=== PATIENT | female | born 1940 | race Caucasian/White ===

== ENCOUNTER 2019-12-07 13:41 | Inpatient (IN) | payer MEDICARE, SELFPAY ==
[2019-12-07] VITALS (13 sets, daily range): BP systolic 124–172; BP diastolic 68–102; PULSE 96–129; RESP 16–26; TEMP 36.1–37.6; O2SAT 91–96; BMI 31.3; BMI 31.6
--- NOTE | ~2019-12-07 | CT_ITS ---
EXAMINATION: CT brain wo con DATE: 12/07/2019 14:35 INDICATION: Head injury. TECHNIQUE: Computed tomography (CT) of the head was performed without intravenous contrast. The mA wa s adjusted according to patient size. Iterative reconstruction technique was employed. The dose-lengt h product was 605.33 mGy-cm. COMPARISON: Head CT 08/31/2018 FINDINGS: There are scattered areas of low attenuation in the cerebral white matter. There is no intr acranial hemorrhage, acute infarction, or abnormal intracranial mass lesion. The ventricles are lila l in size. There is mild mucosal thickening in the ethmoid sinuses. There are likely changes of ocula r lens replacement surgeries. The mastoid air cells are normal. IMPRESSION: 1. Unchanged extensive nonspecific cerebral white matter disease, which likely represents chronic sma ll vessel ischemic disease. Reviewed, dictated and finalized at location A. KEEPER SUPERVISOR IMPRESSION: 1. Unchanged extensive nonspecific cerebral white matter disease, which likely represents chronic small vessel ischemic disease.
--- NOTE | ~2019-12-07 | CT_ITS ---
EXAMINATION: CT cervical spine wo con DATE: 12/07/2019 14:35 INDICATION: Neck injury. TECHNIQUE: Computed tomography (CT) of the cervical spine was performed without intravenous contrast. Automated exposure control and iterative reconstruction technique were employed. The dose-length pro duct was 432.82 mGy-cm. COMPARISON: None FINDINGS: There is 4 degrees dextrocurvature of cervical spine. Vertebral body heights are normal. Th ere is mildly decreased disc height at C4-C5 and C6-C7 and moderately decreased disc height at C5-C6. The following disc levels are specifically discussed: C2-C3: There is no uncovertebral joint osteoarthritis. There is mild bilateral facet joint osteoarthr itis. There is no neural foraminal stenosis. There is no central canal stenosis. C3-C4: There is mild left uncovertebral joint osteoarthritis. There is mild right and moderate left f acet joint osteoarthritis. There is no neural foraminal stenosis. There is mild central canal stenosi s. C4-C5: There is mild bilateral uncovertebral joint osteoarthritis. There is moderate and severe left facet joint osteoarthritis. There is mild left neural foraminal stenosis. There is mild central canal stenosis. C5-C6: There is severe bilateral uncovertebral joint osteoarthritis. There is no facet joint osteoart hritis. There is moderate bilateral neural foraminal stenosis. There is mild central canal stenosis. C6-C7: There is severe bilateral uncovertebral joint osteoarthritis. There is mild bilateral facet dat int osteoarthritis. There is mild bilateral neural foraminal stenosis. There is mild central canal st enosis. C7-T1: There is no uncovertebral joint osteoarthritis. There is mild bilateral facet joint osteoarthr itis. There is no neural foraminal stenosis. There is no central canal stenosis. IMPRESSION: 1. No fracture. 2. Moderate cervical spondylosis. Reviewed, dictated and finalized at location A. H SHRINKING MACHINE OPERATOR
--- NOTE | ~2019-12-07 | XR_ITS ---
EXAMINATION: [id number] EXAM DATE: 12/13/2019 21:33 INDICATION: Right-sided chest pain after fall 4 days ago. Anterior lower aspect. TECHNIQUE: Frontal projection of the upper right ribs, frontal projection of the lower right ribs, ob lique projection of the right ribs, frontal chest x-ray(s) for interpretation. Comparison is made to prior examination from 03/06/2018. FINDINGS: There are no displaced acute right rib fractures identified. There is no soft tissue abno rmality seen. Left-sided portacatheter. Small amount of linear left basilar opacity probably atelecta sis. The lungs are otherwise clear. There are no pleural effusions. The cardiomediastinal silhouett e is within normal limits. There is no pneumothorax suspected. There are cholecystectomy clips. Consider educating patient that even if there is a radiographically occult nondisplaced rib fracture, there is no specific treatment other than to refrain from activity that prevents healing. IMPRESSION: No displaced right rib fractures. Reviewed, dictated and finalized at location A. AND CREDIT MANAGER
--- NOTE | ~2019-12-07 | XR_ITS ---
XR shoulder RT min 2V, XR shoulder LT min 2V 12/07/2019 14:57 Indication: Status post fall. Bilateral shoulder pain Procedure: 4 views each shoulder Comparison: No prior studies for comparison. Findings: Generalized osteopenia. There are degenerative changes of the glenohumeral joints bilateral ly. No acute fracture or traumatic malalignment. Surrounding osseous structures unremarkable. There i s a left subclavian port, distal tip likely in the SVC. Impression: 1: No acute fracture. Reviewed, dictated and finalized at location B. EL CARRIER Impression: 1: No acute fracture. Impression: 1: No acute fracture.
--- NOTE | 2019-12-07 13:57 | ED.FALL ---
HPI - Fall General Chief Complaint: Fall Stated Complaint: fall Time Seen by Provider: 12/07/19 13:47 Source: patient, EMS and RN notes reviewed Mode of arrival: EMS Limitations: other (poor historian) History of Present Illness HPI Narrative: A 78 y/o female pt presents to the ED, via EMS, from home, with a C/O unwitnessed fall. Pt states she fell out of bed however, she previously told RN that she fell while getting into bed. Per EMS, pt complained of neck pain upon arrival and pt was placed in a C-collar. Pt states she lives at home alone and laid on the floor for an unknown amount of time after her fall. Pt denies LOC. Pt is now complaining of throat pain and lt shoulder pain in the ED. She reports a H/O frequent falls. A complete HPI is not available d/t pt being a poor historian. MD complaint: fall Onset (ago): unknown Fall from: out of bed Fall witnessed: no Place fall occurred: home Loss of consciousness: none Prolonged down time: unclear Context: tripped/slipped and history of frequent falls Location of injury - extremities: Left: shoulder Associated symptoms (after fall): neck pain (reported to EMS but not to EDP) Related Data Home Medications Medication Instructions Recorded Confirmed aspirin 81 mg PO DAILY 09/07/19 09/07/19 calcium carbonate [Calcium 500] 500 mg PO TID 09/07/19 09/07/19 capecitabine 500 mg PO DIRECTED 09/07/19 09/07/19 hydrocodone-acetaminophen 1 tablet PO Q4H PRN 09/07/19 09/07/19 metoprolol tartrate 25 mg PO BID 09/07/19 09/07/19 metronidazole 500 mg PO Q6H 09/07/19 09/07/19 mirtazapine 15 mg PO HS 09/07/19 09/07/19 pantoprazole 40 mg PO Q12H 09/07/19 09/07/19 esomeprazole magnesium mg 12/07/19 Allergies Allergy/AdvReac Type Severity Reaction Status Date / Time No Known Allergies Allergy Unverified 12/07/19 16:35 Review of Systems Review of Systems: All systems reviewed & are unremarkable except as noted in HPI and below Constitutional: Constitutional: Reports frequent falls ENT: Reports sore throat Musculoskeletal: Musculoskeletal: Reports neck pain (reported to EMS but not to EDP) and Reports other (lt shoulder pain) [facility], [facility] Past Medical History Medical History (Updated 12/07/19 @ 17:11 by Laci Massey MD) Colon cancer metastasized to liver Depression Hypertension Kidney stones Myocardial infarction Restless leg syndrome Surgical History Surgical History (Updated 12/07/19 @ 14:26 by Buck Mason) H/O bilateral cataract extraction History of appendectomy History of cholecystectomy History of colon resection History of lithotripsy History of tonsillectomy Social History Social History (Updated 12/07/19 @ 14:26 by Buck Mason) Smoking status: Former smoker Smoking end date: 11/21/07 Alcohol intake: never Exam Const: General: healthy appearing Nutritional Appearance: obese Limitations: other limitations (poor historian ) Other: Elderly HENMT: Mouth: Yes lip normal and Yes dry mucous membranes Eyes: Conjunctivae: conjunctivae normal Pupils: Equal, round and reactive pupils present Resp: Effort & Inspection: normal respiratory effort Auscultation: clear to auscultation bilaterally Cardio: Rate: regular rate Rhythm: regular rhythm and other (frequent ectopy) Heart sounds: no murmurs Peripheral pulses: dorsalis pedis present GI: GI Palp: Yes Soft to palpation and No Tenderness to palpation present (GI) Auscultation: normal bowel sounds Back/Spine/Pelvis: Other: Full ROM Skin: General skin exam: normal color and dry skin Other: Warm Neuro: General: oriented to person (alert) Speech: normal speech Extrem: Left upper extremity: shoulder/upper arm tenderness Right lower extremity: lower leg Details: abrasion (scattered with varying degrees of healing) and ecchymosis (scattered with varying degrees of healing) Left lower extremity: lower leg Details: abrasion (scattered with varying degrees of healing) and ecc
[2019-12-07 14:30] LABS: Basophils Percent Auto 0.2 % (0.2-1.2); Hematocrit 47.9 % (37.0-47.0); Hemoglobin 15.2 g/dL (12.0-15.0); Immature Granulocyte Absolute 0.13 K/mm3 (0.00-0.031); Immature Granulocyte Percent A 0.7 % (0-0.5); Lymphocytes Absolute Auto 0.47 K/mm3 (0.9-3.2); Lymphocytes Percent Auto 2.5 % (18.3-44.2); Mean Corpuscular HGB Conc 31.7 g/dl (32-36); Mean Corpuscular Hemoglobin 32.6 pg (26-34); Mean Corpuscular Volume 102.8 fl (80-100); Mean Platelet Volume 10.5 fl (7.4-10.4); Monocytes Absolute Auto 1.3 K/mm3 (0.1-0.6); Monocytes Percent Auto 6.9 % (2.6-8.5); Neutrophils Absolute Auto 16.7 K/mm3 (1.3-6.7); Neutrophils Percent Auto 89.7 % (45.5-73.1); Platelet Count Result 218 k/mm3 (150-375); Red Blood Count 4.66 M/mm3 (4.2-5.4); Red Cell Distribution Width 15.9 % (11.5-14.5); White Blood Count 18.6 K/mm3 (4.5-10.0)
[2019-12-07 14:40] LABS: Prothrombin Time 13.2 Seconds (11.1-14.7)
[2019-12-07 14:41] LABS: Partial Thromboplastin Time 25.8 SECONDS (22.3-36.8)
[2019-12-07 14:42] LABS: Alanine Aminotransferase 26 U/L (4-35); Albumin Level 4.5 g/dL (3.5-5.1); Alkaline Phosphatase 259 U/L (38-126); Aspartate Amino Transferase 46 U/L (14-36); Blood Urea Nitrogen 13 mg/dL (7-17); Calcium 9.4 mg/dL (8.4-10.2); Carbon Dioxide 30 mmol/L (22-30); Chloride 96 mmol/L (98-107); Estimated CRCL calculation 73 ml/min; Estimated Glomerular Filt Rate > 60; Glucose 137 mg/dL (65-105); Sodium 136 mmol/L (137-145)
[2019-12-07] MEDS: SODIUM CHLORIDE 0.9% IV 1,000 ML 999 ML IV CONT ×2 (15:45→16:45)
[2019-12-07 15:55] LABS: Add Urine Microscopic? YES; Appearance Urine Cloudy (Clear); Bacteria Urine 3+ /hpf; Bilirubin Urine Negative (Negative); Blood Urine 2+ (Negative); Color Urine Amber (Yellow); Glucose Urine UA Negative (Negative); Ketones Urine 1+ mg/dL (Negative); Leukocyte Esterase Ur 1+ LEU/UL (Negative); Mucus Urine Moderate /lpf; Nitrate Urine Negative (Negative); Protein Urine 3+ mg/dL (Negative); RBC Urine 21-50 /hpf (0-2); Specific Grav Ur 1.016 (1.001-1.035); Squamous Epithelial Cell Urine Many /hpf (Few); WBC Urine 51-75 /hpf
[2019-12-07 15:59] LABS: Lactic Acid Reflex 1.4 mmol/L (0.7-2.1)
[2019-12-07] MEDS: METOPROLOL TARTRATE 50 MG TAB 25 MG PO (16:45)
[2019-12-07] MEDS: METOPROLOL TARTRATE INJ 5 MG/5 ML VIAL 2.5 MG IV PUSH (18:05)
[2019-12-07 18:40] LABS: Glucose Point of Care 119 (65-105)
--- NOTE | 2019-12-07 19:01 | ADMGEN ---
This patient, Beau Serrano, was admitted to IMU Room 202-01. Patient/family oriented to hospital policies and general routines including ID bracelet, bed and alarms, visiting hours, pain management, procedures, bathroom and other care routines, personal items, smoking policy, room service/diet, and visiting hours. Valuables list has been completed. Information on how to activate the Rapid Response Team has been discussed. Patient/Family are encouraged to report perceived risks to care and to ask questions if they do not understand what they are told or what they should do.
[2019-12-07 20:42] LABS: Glucose Point of Care 136 (65-105)
[2019-12-08] VITALS (10 sets, daily range): BP systolic 122–147; BP diastolic 69–90; PULSE 64–125; RESP 16–22; TEMP 36.6–37.6; O2SAT 91–94
--- NOTE | 2019-12-08 00:02 | PM.IMHP ---
H&P: HPI History of Present Illness Chief complaint: sepsis Narrative: Beau Serrano is a 78 year old female who came to the emergency room the a.m. as from home she had a complaint of a witnessed fall. The patient stated she fell out of bed but then later to the nurse in the emergency room that she fell trying to get into the bed. The patient complained of neck pain upon arrival the patient was placed in a C-collar. To lives at home alone and laid on the floor to unknown time after the fall patient has a history of frequent falls. The patient is a very poor historian at this time it is difficult to get clear answers from the patient at this time. Patient was started on IV fluids and ceftriaxone for a UTI. She was also given Lopressor IV for rapid heart rate over which the ER physician called AFib with RVR. Patient has no past history of having atrial fibrillation the EKG that was recorded in the records was sinus tachycardia and is and sinus rhythm with frequent PACs at this time. Date of service is 12/07/2019. Shoulder x-rays were taken and no broken bones were noted. Head and cervical CT were obtained please see results below. Nothing acute Review of Systems Review of Systems: Narrative: Patient is a very poor historian see history of present All systems reviewed & are unremarkable except as noted in HPI and below Constitutional: Constitutional: Reports as per HPI and Reports no additional constitutional complaints Eyes: Eyes: Reports as per HPI and Reports no additional eye complaints ENT: Reports system reviewed and no additional complaints, except as documented and Reports Normal hearing present Cardiovascular: Cardiovascular: Reports no additional cardiovascular complaints Respiratory: Respiratory: Reports no additional respiratory complaints and Reports no additional respiratory complaints Gastrointestinal: Gastrointestinal: Reports as per HPI and Reports no additional gastrointestinal complaints Musculoskeletal: Musculoskeletal: Reports no additional musculoskeletal complaints Comments: She complained of head neck back pain Integumentary/Breasts: Skin/Breast: Reports system reviewed and no additional complaints, except as docu and Reports as per HPI Neurologic: Reports system reviewed and no additional complaints, except as documented, Reports as per HPI and Reports Normal hearing present Psychiatric: Psychiatric: Reports no additional psychiatric complaints and Reports as per HPI Endocrine: Endocrine: Reports no additional endocrine complaints Hematologic/Lymphatic: Hematologic/Lymphatic: Reports no additional hematologic/lymphatic complaints Allergic/Immunologic: Allergic/Immunologic: Reports no additional allergic/immunologic complaints [facility] Past Medical History Medical History Colon cancer metastasized to liver Depression Hypertension Kidney stones Myocardial infarction Restless leg syndrome Surgical History Surgical History H/O bilateral cataract extraction History of appendectomy History of cholecystectomy History of colon resection History of lithotripsy History of tonsillectomy Family History Family History Father Lung cancer Sibling Cancer Social History Social History (Updated 12/08/19 @ 00:08 by Hazel Cortez NP) Social History: According to the records the patient lives home alone and she has 1 daughter. She is listed as a full code. Smoking packs per day: 2 Smoking cigarettes per day: 40.0 Years smoked: 20 Smoking pack-years: 40.00 Smoking status: Heavy tobacco smoker Tobacco type: cigarettes Smoking end date: 11/21/07 Alcohol intake: former Substance use: never Substance use type: does not use Living arrangements: alone Gender identity (if verbalized by the patient): Female Spiritual
--- NOTE | 2019-12-08 01:33 | PHAR ---
PT'S HOME MED CAPECITABINE 500 MG VERIFIED BY PHARMACY
[2019-12-08 05:09] LABS: Basophils Percent Auto 0.2 % (0.2-1.2); Hematocrit 39.2 % (37.0-47.0); Hemoglobin 12.9 g/dL (12.0-15.0); Immature Granulocyte Percent A 0.6 % (0-0.5); Lymphocytes Absolute Auto 0.81 K/mm3 (0.9-3.2); Lymphocytes Percent Auto 4.9 % (18.3-44.2); Mean Corpuscular HGB Conc 32.9 g/dl (32-36); Mean Corpuscular Hemoglobin 33.1 pg (26-34); Mean Corpuscular Volume 100.5 fl (80-100); Monocytes Absolute Auto 1.3 K/mm3 (0.1-0.6); Monocytes Percent Auto 7.7 % (2.6-8.5); Neutrophils Absolute Auto 14.4 K/mm3 (1.3-6.7); Neutrophils Percent Auto 86.6 % (45.5-73.1); Platelet Count Result 181 k/mm3 (150-375); Red Cell Distribution Width 15.9 % (11.5-14.5); White Blood Count 16.7 K/mm3 (4.5-10.0)
[2019-12-08 05:21] LABS: Alanine Aminotransferase 24 U/L (4-35); Albumin Level 3.6 g/dL (3.5-5.1); Alkaline Phosphatase 206 U/L (38-126); Aspartate Amino Transferase 40 U/L (14-36); Bilirubin,Total 0.6 mg/dL (0.2-1.3); Blood Urea Nitrogen 15 mg/dL (7-17); Calcium 8.6 mg/dL (8.4-10.2); Carbon Dioxide 24 mmol/L (22-30); Chloride 100 mmol/L (98-107); Estimated CRCL calculation 72 ml/min; Estimated Glomerular Filt Rate > 60; Glucose 102 mg/dL (65-105); Magnesium 1.9 mg/dL (1.6-2.3); Potassium 3.3 mmol/L (3.4-5.0); Sodium 135 mmol/L (137-145)
[2019-12-08 05:28] LABS: Hypochromasia 1+ (NORMAL); Platelet Estimate Adequate (Adequate)
[2019-12-08 05:29] LABS: Macrocytosis 1+ (NORMAL); Microcytosis 1+ (NORMAL)
[2019-12-08 06:42] LABS: Thyroid Stimulating Hormone Reflex 0.561 uIU/mL (0.465-4.68)
[2019-12-08] MEDS: PANTOPRAZOLE 40 MG TABLET PO (08:42)
[2019-12-08] MEDS: POTASSIUM CHLORIDE 20 MEQ TABLET 40 MEQ PO (08:42)
--- NOTE | 2019-12-08 10:03 | PM.IMPN ---
Progress Note: A&P Assessment and Plan (1) Sepsis: Qualifiers: Sepsis acute organ dysfunction status: without acute organ dysfunction Sepsis type: sepsis due to unspecified organism Qualified Code(s): A41.9 - Sepsis, unspecified organism Code(s): A41.9 - Sepsis, unspecified organism Status: Acute Assessment and Plan: Criteria met on admission. Result of UTI. Blood cultures x2 now growing gram-positive bacilli. Was started on IV ceftriaxone in the emergency room but will add IV vancomycin while awaiting final test results. WBC improved at 16.7 today. Lactic acid normal. Will add low-dose IV fluids which can hopefully be discontinued as oral intake improves. Will moved to medical floor as stable. (2) UTI (urinary tract infection): Qualifiers: Urinary tract infection type: acute cystitis Hematuria presence: without hematuria Qualified Code(s): N30.00 - Acute cystitis without hematuria Code(s): N39.0 - Urinary tract infection, site not specified Status: Acute Assessment and Plan: Urinalysis on admission very suspicious but with many squamous epithelial cells. Urine culture is still pending. IV antibiotics as noted above with blood cultures positive. (3) Sinus tachycardia: Code(s): R00.0 - Tachycardia, unspecified Status: Acute Assessment and Plan: Concern for possible atrial fibrillation while in the emergency room. I personally reviewed EKG which does show sinus tachycardia. Telemetry reviewed on 12/08/2019 also with sinus tachycardia with frequent PACs. Result of infection. Will monitor clinically. (4) Hypertension: Qualifiers: Hypertension type: essential hypertension Qualified Code(s): I10 - Essential (primary) hypertension Code(s): I10 - Essential (primary) hypertension Status: Chronic Assessment and Plan: Blood pressure was slightly elevated on admission. Blood pressure reviewed on 12/08/2019 and currently acceptable. Not on medication at home. Will monitor. (5) Depression: Qualifiers: Depression Type: major depressive disorder Major depression recurrence: unspecified whether recurrent Active/Remission status: currently active Major depression episode severity: unspecified Qualified Code(s): F32.9 - Major depressive disorder, single episode, unspecified Code(s): F32.9 - Major depressive disorder, single episode, unspecified Status: Chronic Assessment and Plan: Patient does appear depressed. Not on medication at home. Will monitor for now. (6) Malignant neoplasm of colon, unspecified: Qualifiers: Colon location: unspecified part of colon Qualified Code(s): C18.9 - Malignant neoplasm of colon, unspecified Code(s): C18.9 - Malignant neoplasm of colon, unspecified Status: Acute Assessment and Plan: Known metastatic colon cancer originally diagnosed in October 2016. Underwent right hemicolectomy in November 2016. Eventually had Port-A-Cath placed in January 2018 for chemotherapy. She is followed by Dr. Crawford and is currently on oral capecitabine which we will continue while here. (7) DVT prophylaxis: Code(s): Z29.9 - Encounter for prophylactic measures, unspecified Status: Acute Assessment and Plan: SCDs. Time Spent With Patient Time with patient: 15 - 25 minutes Subjective Date/time seen: 12/08/19 10:03 Interval history: Date of Service: 12/08/2019. Admitted with sepsis, UTI and possible atrial fibrillation. Patient with known colon cancer currently receiving treatment. Complains of general malaise. Also complains of chest pain, abdominal pain, breast pain, headache, shoulder pain. Does not recall when she last urinated but nurse reports has been incontinent. States she has not eaten for at least 1-2 days. No nausea or vomiting. No shortness of breath. Review of Systems Constitutional: Constitutional: Repor
[2019-12-08] MEDS: SODIUM CHLORIDE 0.9% IV 1,000 ML 50 ML IV CONT (11:10)
--- NOTE | 2019-12-08 11:45 | PC.NURSE ---
This patient, Beau Serrano, was transferred to [325 ] on 12/08/19 at 1140. Personal belongings sent with patient. Belongings list checked and HOME Med sent with patients Chart. Report given to Jany CONCEPCION. Appropriate documentation sent with patient.
--- NOTE | 2019-12-08 11:59 | PC.NURSE ---
This patient, Beau Serrano, was received from [ IMU] on 12/08/19 at 1200. Personal belongings list checked and signed. Patient/family oriented to unit policies and routines
[2019-12-08] MEDS: ACETAMINOPHEN 325 MG TABLET 650 MG PO (13:34)
[2019-12-09 06:33] LABS: Hematocrit 38.7 % (37.0-47.0); Hemoglobin 12.9 g/dL (12.0-15.0); Mean Corpuscular HGB Conc 33.3 g/dl (32-36); Mean Corpuscular Hemoglobin 33.2 pg (26-34); Mean Corpuscular Volume 99.7 fl (80-100); Platelet Count Result 186 k/mm3 (150-375); Red Blood Count 3.88 M/mm3 (4.2-5.4); Red Cell Distribution Width 15.7 % (11.5-14.5)
[2019-12-09 06:45] LABS: Blood Urea Nitrogen 13 mg/dL (7-17); Calcium 8.5 mg/dL (8.4-10.2); Carbon Dioxide 27 mmol/L (22-30); Chloride 95 mmol/L (98-107); Estimated CRCL calculation 72 ml/min; Estimated Glomerular Filt Rate > 60; Glucose 113 mg/dL (65-105); Magnesium 1.9 mg/dL (1.6-2.3); Potassium 3.4 mmol/L (3.4-5.0); Sodium 130 mmol/L (137-145)
[2019-12-09 06:53] VITALS: BP 160/95; PULSE 123; RESP 18; TEMP 37.3; O2SAT 92
[2019-12-09] MEDS: PANTOPRAZOLE 40 MG TABLET PO (12:02)
--- NOTE | 2019-12-09 12:14 | PCOTNOTE ---
Patient declined ADL's and UE exercises this date due to fatigue and not feeling up to it .
[2019-12-09] MEDS: SODIUM CHLORIDE 0.9% IV 1,000 ML 50 ML IV CONT (13:07)
--- NOTE | 2019-12-09 14:18 | PM.IMPN ---
Progress Note: A&P Assessment and Plan (1) Sepsis: Qualifiers: Sepsis acute organ dysfunction status: without acute organ dysfunction Sepsis type: sepsis due to unspecified organism Qualified Code(s): A41.9 - Sepsis, unspecified organism Code(s): A41.9 - Sepsis, unspecified organism Status: Acute Assessment and Plan: Criteria met on admission. Probably result of UTI but also now with blood cultures times to growing Clostridium perfringens. Suspect this is her known metastatic colon cancer. Urine culture with Klebsiella pneumonia. Will continue IV vancomycin with positive blood cultures and IV ceftriaxone with positive urine culture. Will consult infectious disease for further guidance regarding treatment. WBC down to 14.0 today. Will discontinue low-dose IV fluids today. Continue PT/OT. Discussed need for rehab with patient today. Discussed need for rehab placement with granddaughter yesterday. Care coordination aware with referrals made to SNF facilities. (2) UTI (urinary tract infection): Qualifiers: Hematuria presence: without hematuria Urinary tract infection type: acute cystitis Qualified Code(s): N30.00 - Acute cystitis without hematuria Code(s): N39.0 - Urinary tract infection, site not specified Status: Acute Assessment and Plan: Urinalysis on admission suspicious with urine culture no growing Klebsiella pneumonia. Will continue IV ceftriaxone as sensitive. (3) Sinus tachycardia: Code(s): R00.0 - Tachycardia, unspecified Status: Acute Assessment and Plan: Concern for possible atrial fibrillation while in the emergency room. I personally reviewed EKG which does show sinus tachycardia. Heart rate now presently controlled. Will continue to monitor clinically. (4) Hypertension: Qualifiers: Hypertension type: essential hypertension Qualified Code(s): I10 - Essential (primary) hypertension Code(s): I10 - Essential (primary) hypertension Status: Chronic Assessment and Plan: Blood pressure reviewed on 12/09/2019. Blood pressure variable with elevated readings frequently. Not on medication at home. Will start low-dose metoprolol tartrate. Will monitor. Adjust treatment as needed. (5) Depression: Qualifiers: Active/Remission status: currently active Depression Type: major depressive disorder Major depression episode severity: unspecified Major depression recurrence: unspecified whether recurrent Qualified Code(s): F32.9 - Major depressive disorder, single episode, unspecified Code(s): F32.9 - Major depressive disorder, single episode, unspecified Status: Chronic Assessment and Plan: Patient does appear depressed. Not on medication at home. Will continue to monitor for now. (6) Malignant neoplasm of colon, unspecified: Qualifiers: Colon location: unspecified part of colon Qualified Code(s): C18.9 - Malignant neoplasm of colon, unspecified Code(s): C18.9 - Malignant neoplasm of colon, unspecified Status: Acute Assessment and Plan: Known metastatic colon cancer originally diagnosed in October 2016. Underwent right hemicolectomy in November 2016. Eventually had Port-A-Cath placed in January 2018 for chemotherapy. She is followed by Dr. Crawford and is currently on oral capecitabine which we will continue while here. Will need to follow up with Oncology after discharge. (7) DVT prophylaxis: Code(s): Z29.9 - Encounter for prophylactic measures, unspecified Status: Acute Assessment and Plan: SCDs. Time Spent With Patient Time with patient: 15 - 25 minutes Subjective Date/time seen: 12/09/19 14:18 Interval history: Date of Service: 12/09/2019. Admitted with sepsis, UTI and possible atrial fibrillation. Patient with known colon cancer currently receiving treatment. Sitting in chair today. Complains of abdominal pain. No n
[2019-12-09 14:43] VITALS: BP 126/77; PULSE 77; RESP 16; TEMP 37.3; O2SAT 94
[2019-12-09] MEDS: AMPICILLIN 1 GM/NS 50 ML 1 GM/50 ML BAG IVPB (17:40)
[2019-12-09 20:57] VITALS: PULSE 70
[2019-12-09] MEDS: METOPROLOL TARTRATE 12.5 MG TABLET PO (20:57)
[2019-12-10] MEDS: AMPICILLIN 1 GM/NS 50 ML 1 GM/50 ML BAG IVPB ×3 (00:13→12:45)
[2019-12-10 06:00] VITALS: BP 135/98; PULSE 100; RESP 18; TEMP 36.4; O2SAT 94
[2019-12-10 06:50] LABS: Estimated CRCL calculation 74 ml/min; Estimated Glomerular Filt Rate > 60
[2019-12-10 09:38] VITALS: PULSE 84
[2019-12-10] MEDS: PANTOPRAZOLE 40 MG TABLET PO (09:38)
[2019-12-10] MEDS: METOPROLOL TARTRATE 12.5 MG TABLET PO ×2 (09:38→20:58)
[2019-12-10 14:00] VITALS: BP 108/48; PULSE 64; RESP 16; TEMP 36.8; O2SAT 96
--- NOTE | 2019-12-10 14:32 | PM.IMPN ---
Progress Note: A&P Assessment and Plan (1) Sepsis: Qualifiers: Sepsis acute organ dysfunction status: without acute organ dysfunction Sepsis type: sepsis due to unspecified organism Qualified Code(s): A41.9 - Sepsis, unspecified organism Code(s): A41.9 - Sepsis, unspecified organism Status: Acute Assessment and Plan: Criteria met on admission. Result of UTI and Clostridium perfringens. Urine culture with Klebsiella pneumonia. Blood cultures x2 now positive for Clostridium perfringens. Was on IV ceftriaxone and vancomycin while awaiting ID consult with IV ampicillin added yesterday per ID. Discussed with Dr. Muse today. Now transitioned to ampicillin/sulbactam alone today. Length of treatment to be determined. Will continue PT/OT. Will need SNF placement at discharge. Continue to follow. (2) UTI (urinary tract infection): Qualifiers: Hematuria presence: without hematuria Urinary tract infection type: acute cystitis Qualified Code(s): N30.00 - Acute cystitis without hematuria Code(s): N39.0 - Urinary tract infection, site not specified Status: Acute Assessment and Plan: Urinalysis on admission suspicious with urine culture growing Klebsiella pneumonia. Transitioned to IV ampicillin/sulbactam today as noted above. (3) C. perfringens infection: Code(s): B96.7 - Clostridium perfringens [C. perfringens] as the cause of diseases classified elsewhere Status: Acute Assessment and Plan: Blood cultures x2 positive for Clostridium perfringens. Known metastatic colon cancer with felt to be source of this infection now on IV ampicillin/sulbactam as noted above. (4) Sinus tachycardia: Code(s): R00.0 - Tachycardia, unspecified Status: Acute Assessment and Plan: Concern for possible atrial fibrillation while in the emergency room. I personally reviewed EKG which showed sinus tachycardia. Tachycardia result of infection. Heart rate now remains controlled. Continue to monitor. (5) Hypertension: Qualifiers: Hypertension type: essential hypertension Qualified Code(s): I10 - Essential (primary) hypertension Code(s): I10 - Essential (primary) hypertension Status: Chronic Assessment and Plan: Blood pressure reviewed on 12/10/2019. Blood pressure still with some variability but acceptable. Will continue low-dose metoprolol tartrate. Will continue to monitor. Was not on medication at home. (6) Depression: Qualifiers: Active/Remission status: currently active Depression Type: major depressive disorder Major depression episode severity: unspecified Major depression recurrence: unspecified whether recurrent Qualified Code(s): F32.9 - Major depressive disorder, single episode, unspecified Code(s): F32.9 - Major depressive disorder, single episode, unspecified Status: Chronic Assessment and Plan: Patient does appear depressed. Not on medication at home. Will continue to monitor for now. (7) Malignant neoplasm of colon, unspecified: Qualifiers: Colon location: unspecified part of colon Qualified Code(s): C18.9 - Malignant neoplasm of colon, unspecified Code(s): C18.9 - Malignant neoplasm of colon, unspecified Status: Acute Assessment and Plan: Known metastatic colon cancer originally diagnosed in October 2016. Underwent right hemicolectomy in November 2016. Eventually had Port-A-Cath placed in January 2018 for chemotherapy. She is followed by Dr. Crawford as an outpatient and is currently on oral capecitabine which we will continue while here. Will need to follow up with Oncology after discharge. (8) DVT prophylaxis: Code(s): Z29.9 - Encounter for prophylactic measures, unspecified Status: Acute Assessment and Plan: SCDs. Time Spent With Patient Time with patient: 15 - 25 minutes Subjective Date/time seen: 12/10/19 14:32
[2019-12-10 15:19] LABS: Vancomycin Trough 7.1 ug/mL (10.0-20.0)
--- NOTE | 2019-12-10 15:23 | WPDINFPN2 ---
Progress Note: A&P Assessment and Plan (1) C. perfringens infection: Code(s): B96.7 - Clostridium perfringens [C. perfringens] as the cause of diseases classified elsewhere Status: Acute Assessment and Plan: C. perfringens bacteremia with infection, hepatic source REC AmpSulbactam # 1 and f/u. Subjective Date/time seen: 12/10/19 15:23 Objective Data Vital Signs Vital Signs: Vital Signs - 24 hr 12/09/19 20:57 12/10/19 06:00 12/10/19 09:38 Temperature 36.4 C Pulse Rate 70 100 84 Respiratory Rate 18 Blood Pressure 135/98 H Pulse Oximetry 94 Intake/Output Intake/Output: Intake & Output 12/07/19 12/08/19 12/09/19 12/10/19 23:59 23:59 23:59 23:59 Intake Total 2049 2029 2300 1330 Output Total 496 325 9703 Balance 1650 2030 1500 330 Meds/Results Medications: Active Medications Generic Name Dose Route Start Last Admin Trade Name Freq PRN Reason Stop Dose Admin Acetaminophen 650 mg 12/08/19 12:16 12/08/19 13:34 Tylenol Tablet PO 650 mg Q4H PRN Administration Mild Pain (1-3) or Fever Hydrocodone Bitart/Acetaminophen 1 tab 12/08/19 16:42 12/10/19 06:20 [place] 5-325 Mg PO 1 tab Q4H PRN Administration Pain Rated 4-6 Metoprolol Tartrate 12.5 mg 12/09/19 21:00 12/10/19 09:38 Lopressor PO 12.5 mg Q12HR NI Administration Pantoprazole Sodium 40 mg 12/08/19 09:00 12/10/19 09:38 Protonix PO 40 mg DAILY NI Administration Radiology Results: ITS Impressions Head CT 12/07/19 14:40 IMPRESSION: 1. Unchanged extensive nonspecific cerebral white matter disease, which likely represents chronic small vessel ischemic disease. Cervical Spine CT 12/07/19 14:45 IMPRESSION: 1. No fracture. 2. Moderate cervical spondylosis. Shoulder X-Ray 12/07/19 15:07 Impression: 1: No acute fracture. Shoulder X-Ray 12/07/19 15:07 Impression: 1: No acute fracture. Labs Labs: Laboratory Results - last 24 hr 12/10/19 12/10/19 06:17 14:57 Creatinine 0.60 L Estim Creat Clear Calc 74 Estimated GFR > 60 Vancomycin Trough 7.1 L
[2019-12-10] MEDS: AMPICILLIN SODIUM/SULBACTAM 3 GM in SODIUM CHLORIDE 0.9% IV 100 ML IVPB (18:54)
[2019-12-10 20:58] VITALS: PULSE 100
[2019-12-10 22:00] VITALS: BP 121/89; PULSE 107; RESP 16; TEMP 37.6; O2SAT 94
[2019-12-10] MEDS: MELATONIN 3 MG TABLET PO (22:53)
[2019-12-11] MEDS: AMPICILLIN SODIUM/SULBACTAM 3 GM in SODIUM CHLORIDE 0.9% IV 100 ML IVPB ×4 (01:40→17:02)
[2019-12-11 06:00] VITALS: BP 135/83; PULSE 93; RESP 16; TEMP 37.2; O2SAT 92
--- NOTE | 2019-12-11 06:16 | CONS_ITS ---
DATE OF CONSULTATION: 12/10/2019 REASON FOR CONSULTATION: Clostridium bacteremia. HISTORY OF PRESENT ILLNESS: Ms. Serrano is a 78-year-old female, who can provide limited history due to memory loss. She has a history of colon cancer and known to be metastatic to the liver. She presented to the emergency room 3 days ago after suffering a fall at home. Blood cultures turned positive yesterday and consultation was requested. She has been on ceftriaxone and vancomycin; I added ampicillin yesterday. No other recent antibiotics. No immunosuppressants. She does have abdominal pain at rest in the epigastrium and right upper quadrant, not elsewhere. No diarrhea and to me she denies fever, chills, sweats, or syncope. Chart indicates frequent falls at home. ALLERGIES: NONE KNOWN. HABITS: No tobacco. No alcohol. PRESENT MEDICATIONS: List reviewed. PAST MEDICAL HISTORY: Cholecystectomy, colon resection, appendectomy, cataract surgery, lithotripsy, tonsillectomy, depression, hypertension, nephrolithiasis, [place], RLS. FAMILY HISTORY: Lung cancer. SOCIAL HISTORY: She reports being several months ago. She does not work outside the home and minimally active by her report. REVIEW OF SYSTEM: 14-point review negative otherwise. PHYSICAL EXAMINATION: GENERAL: This is an elderly female appears her actual age. No acute distress. VITAL SIGNS: Afebrile since arrival 3 days ago, 135/98, 100, 18, 94%. SKIN: Few ecchymoses. She has several abraded papular lesions each about 0.5 cm in diameter over both shins. Skin is warm and dry. She has no ulcerations. EENT: The pupils are equal and round. No conjunctival injection. No petechiae. Oral mucosa is normal. NECK: No masses. LUNGS: Diminished breath sounds, otherwise clear to auscultation and percussion. BACK: Has no CVAT. CARDIAC: Tachycardic, regular no murmurs or gallops. No ectopy. ABDOMEN: Tender without guarding in the epigastrium in the right upper quadrant. No masses are palpable. Normal bowel sounds. Not distended, obese. EXTREMITIES: 2+ pitting edema in both ankles and into the feet. LABORATORY DATA: Blood cultures from 2 out 2 sets, Clostridium perfringens susceptibilities pending. Urine culture with Klebsiella pneumoniae. White blood cell count yesterday 14.0, hemoglobin 12.9, platelets are 186, previous a white count 16.7. She has hyponatremia, otherwise chemistry panel unremarkable. AST is 40, alkaline phosphatase 206. Urinalysis multiple abnormalities, which are reviewed. RADIOLOGY: Brain CT shows chronic changes only. Abdomen pelvic CT, heterogeneous mass, left hepatic lobe, stable intrahepatic biliary dilation and ventral hernias. ASSESSMENT: 1. Clostridium perfringens bacteremia, suspected to infection rather than skin contaminant. She has no risk factors for food-borne illness. More likely, I think this is a colon or hepatic in origin in particular from necrotic liver tumor. Imaging does not indicate any reversible stricture or surgically approachable condition. 2. Metastatic colon cancer. 3. Memory loss. 4. Past tobacco. RECOMMENDATIONS: 1. Consolidate to ampicillin-sulbactam. 2. Await susceptibility pattern, about 10% of Clostridium perfringens isolates will be penicillin resistant. 3. Length of IV therapy to be determined. 4. Follow up white blood cell count over time. Thank you very much for asking me to see her. KJ CAZARES M.D. ORACLE DEVELOPER ORACLE DEVELOPER D I MT: [place]
[2019-12-11 06:25] LABS: Hematocrit 37.2 % (37.0-47.0); Hemoglobin 12.2 g/dL (12.0-15.0); Mean Corpuscular HGB Conc 32.8 g/dl (32-36); Mean Corpuscular Volume 100.5 fl (80-100); Mean Platelet Volume 10.8 fl (7.4-10.4); Platelet Count Result 205 k/mm3 (150-375); Red Cell Distribution Width 15.4 % (11.5-14.5); White Blood Count 10.2 K/mm3 (4.5-10.0)
[2019-12-11 06:41] LABS: Blood Urea Nitrogen 13 mg/dL (7-17); Calcium 8.4 mg/dL (8.4-10.2); Carbon Dioxide 28 mmol/L (22-30); Chloride 98 mmol/L (98-107); Estimated CRCL calculation 75 ml/min; Estimated Glomerular Filt Rate > 60; Glucose 119 mg/dL (65-105); Potassium 3.5 mmol/L (3.4-5.0); Sodium 135 mmol/L (137-145)
[2019-12-11 08:05] VITALS: PULSE 106
[2019-12-11] MEDS: METOPROLOL TARTRATE 12.5 MG TABLET PO ×2 (08:05→20:31)
[2019-12-11] MEDS: PANTOPRAZOLE 40 MG TABLET PO (08:06)
--- NOTE | 2019-12-11 11:03 | PM.IMPN ---
Progress Note: A&P Assessment and Plan (1) Sepsis: Qualifiers: Sepsis acute organ dysfunction status: without acute organ dysfunction Sepsis type: sepsis due to unspecified organism Qualified Code(s): A41.9 - Sepsis, unspecified organism Code(s): A41.9 - Sepsis, unspecified organism Status: Acute Assessment and Plan: Septicemia with criteria met on admission. Result of UTI and Clostridium perfringens. Urine culture with Klebsiella pneumonia. Blood cultures x2 positive for Clostridium perfringens. Was on IV ceftriaxone and vancomycin with IV ampicillin added. Now abx narrowed to Unasyn. BCx sensitivities are pending but Beta Lactamase negative. Length of treatment to be determined. Will continue PT/OT. Will need SNF placement at discharge. Continue to follow. (2) UTI (urinary tract infection): Qualifiers: Hematuria presence: without hematuria Urinary tract infection type: acute cystitis Qualified Code(s): N30.00 - Acute cystitis without hematuria Code(s): N39.0 - Urinary tract infection, site not specified Status: Acute Assessment and Plan: Urine culture growing Klebsiella pneumonia. COntinue IV ampicillin/sulbactam. (3) C. perfringens infection: Code(s): B96.7 - Clostridium perfringens [C. perfringens] as the cause of diseases classified elsewhere Status: Acute Assessment and Plan: Blood cultures x2 positive for Clostridium perfringens. Known metastatic colon cancer felt to be the source of this infection. Beta Lactamase negative. Sensitivities pending. Abx adjusted and currently on IV ampicillin/sulbactam as noted above. Continue the same. (4) Sinus tachycardia: Code(s): R00.0 - Tachycardia, unspecified Status: Acute Assessment and Plan: Concern for possible atrial fibrillation while in the emergency room but EKG showing sinus tachycardia. Tachycardia felt a result of infection. Heart rate now remains controlled on Metoprolol. Continue to monitor. (5) Hypertension: Qualifiers: Hypertension type: essential hypertension Qualified Code(s): I10 - Essential (primary) hypertension Code(s): I10 - Essential (primary) hypertension Status: Chronic Assessment and Plan: Blood pressure reviewed on 12/11/2019. Blood pressure well controlled. Low-dose metoprolol tartrate added which will continue. Will continue to monitor. Was not on medication at home. (6) Depression: Qualifiers: Active/Remission status: currently active Depression Type: major depressive disorder Major depression episode severity: unspecified Major depression recurrence: unspecified whether recurrent Qualified Code(s): F32.9 - Major depressive disorder, single episode, unspecified Code(s): F32.9 - Major depressive disorder, single episode, unspecified Status: Chronic Assessment and Plan: Patient with the diagnosis of depression but not on medication at home. Will continue to monitor for now. (7) Malignant neoplasm of colon, unspecified: Qualifiers: Colon location: unspecified part of colon Qualified Code(s): C18.9 - Malignant neoplasm of colon, unspecified Code(s): C18.9 - Malignant neoplasm of colon, unspecified Status: Acute Assessment and Plan: Patient with known metastatic colon cancer originally diagnosed in October 2016. She underwent right hemicolectomy in November 2016 and eventually had Port-A-Cath placed in January 2018 for chemotherapy. She is followed by Dr. Crawford as an outpatient and is currently on oral capecitabine. Will need to follow up with Oncology after discharge. (8) DVT prophylaxis: Code(s): Z29.9 - Encounter for prophylactic measures, unspecified Status: Acute Assessment and Plan: SCDs. Subjective Date/time seen: 12/11/19 09:45 Interval history: 78yo female admitted with sepsis,
[2019-12-11 14:00] VITALS: BP 134/79; PULSE 94; RESP 19; TEMP 36.6; O2SAT 95
[2019-12-11] MEDS: ACETAMINOPHEN 325 MG TABLET 650 MG PO (17:02)
--- NOTE | 2019-12-11 18:05 | WPDINFPN2 ---
Progress Note: A&P Assessment and Plan (1) C. perfringens infection: Code(s): B96.7 - Clostridium perfringens [C. perfringens] as the cause of diseases classified elsewhere Status: Acute Assessment and Plan: 1. C. perfringens bacteremia with infection, hepatic source, beta lactamase negative. 2. Colon cancer with met to liver REC AmpSulbactam # 2, continue this agent rather than PCN due to potential for co-pathogens. Anticipate another 3 days IV therapy, then oral. On analgesics Subjective Date/time seen: 12/11/19 18:05 Interval history: upper abd pain, appetite poor but is trying to finish her tray Exam Narrative: Exam Narrative: afebrile Const: General: no acute distress Eyes: General: appearance normal, both eyes and all related structures Resp: Effort & Inspection: normal respiratory effort Auscultation: clear to auscultation bilaterally Cardio: Rate: regular rate Rhythm: regular rhythm Heart sounds: no gallops and no murmurs GI: Inspection: non-distended GI Palp: Yes Soft to palpation, Yes Tenderness to palpation present (GI) and No Guarding due to palpation present (GI) Percussion: Yes normal to percussion Objective Data Vital Signs Vital Signs: Vital Signs - 24 hr 12/10/19 20:58 12/10/19 22:00 12/11/19 06:00 Temperature 37.6 C 37.2 C Pulse Rate 100 107 H 93 Respiratory Rate 16 16 Blood Pressure 121/89 135/83 Pulse Oximetry 94 92 12/11/19 08:05 Temperature Pulse Rate 106 H Respiratory Rate Blood Pressure Pulse Oximetry Intake/Output Intake/Output: Intake & Output 12/08/19 12/09/19 12/10/19 12/11/19 23:59 23:59 23:59 23:59 Intake Total 2029 2300 2360 2490 Output Total 800 1999 800 Balance 2029 9669 497 1717 Meds/Results Medications: Active Medications Generic Name Dose Route Start Last Admin Trade Name Freq PRN Reason Stop Dose Admin Acetaminophen 650 mg 12/08/19 12:16 12/11/19 17:02 Tylenol Tablet PO 650 mg Q4H PRN Administration Mild Pain (1-3) or Fever Hydrocodone Bitart/Acetaminophen 1 tab 12/08/19 16:42 12/10/19 18:34 [place] 5-325 Mg PO 1 tab Q4H PRN Administration Pain Rated 4-6 Ampicillin Sodium/Sulbactam 100 mls @ 200 mls/hr 12/10/19 18:00 12/11/19 17:02 Sodium 3 gm/ Sodium Chloride IVPB 200 mls/hr Q6HR NI Administration Metoprolol Tartrate 12.5 mg 12/09/19 21:00 12/11/19 08:05 Lopressor PO 12.5 mg Q12HR NI Administration Pantoprazole Sodium 40 mg 12/08/19 09:00 12/11/19 08:06 Protonix PO 40 mg DAILY NI Administration Radiology Results: ITS Impressions Head CT 12/07/19 14:40 IMPRESSION: 1. Unchanged extensive nonspecific cerebral white matter disease, which likely represents chronic small vessel ischemic disease. Cervical Spine CT 12/07/19 14:45 IMPRESSION: 1. No fracture. 2. Moderate cervical spondylosis. Shoulder X-Ray 12/07/19 15:07 Impression: 1: No acute fracture. Shoulder X-Ray 12/07/19 15:07 Impression: 1: No acute fracture. Labs Labs: Laboratory Results - last 24 hr 12/11/19 12/11/19 06:05 06:05 WBC 10.2 H RBC 3.70 L Hgb 12.2 Hct 37.2 MCV 100.5 H MCH 33.0 MCHC 32.8 RDW 15.4 H Plt Count 205 MPV 10.8 H Sodium 135 L Potassium 3.5 Chloride 98 Carbon Dioxide 28 BUN 13 Creatinine 0.60 L Estim Creat Clear Calc 75 Estimated GFR > 60 Glucose 119 H Calcium 8.4
[2019-12-11 20:07] VITALS: PULSE 66; RESP 16; O2SAT 95
[2019-12-11 20:31] VITALS: PULSE 66
[2019-12-11 22:00] VITALS: BP 129/77; PULSE 92; RESP 18; TEMP 37.4; O2SAT 95
[2019-12-12 05:53] VITALS: BP 148/81; PULSE 108; RESP 18; TEMP 36.9; O2SAT 91
[2019-12-12 06:12] LABS: Hematocrit 38.5 % (37.0-47.0); Hemoglobin 12.3 g/dL (12.0-15.0); Mean Corpuscular HGB Conc 31.9 g/dl (32-36); Mean Corpuscular Hemoglobin 32.6 pg (26-34); Mean Corpuscular Volume 102.1 fl (80-100); Platelet Count Result 208 k/mm3 (150-375); Red Blood Count 3.77 M/mm3 (4.2-5.4); Red Cell Distribution Width 15.3 % (11.5-14.5)
[2019-12-12 07:37] LABS: Alanine Aminotransferase 15 U/L (4-35); Albumin Level 3.1 g/dL (3.5-5.1); Alkaline Phosphatase 208 U/L (38-126); Aspartate Amino Transferase 22 U/L (14-36); Bilirubin,Total 0.4 mg/dL (0.2-1.3); Blood Urea Nitrogen 10 mg/dL (7-17); Calcium 8.5 mg/dL (8.4-10.2); Carbon Dioxide 30 mmol/L (22-30); Chloride 96 mmol/L (98-107); Estimated CRCL calculation 75 ml/min; Estimated Glomerular Filt Rate > 60; Glucose 110 mg/dL (65-105); Potassium 3.1 mmol/L (3.4-5.0); Sodium 138 mmol/L (137-145)
[2019-12-12 08:52] VITALS: PULSE 108
[2019-12-12] MEDS: METOPROLOL TARTRATE 12.5 MG TABLET PO ×2 (08:52→21:44)
[2019-12-12] MEDS: PANTOPRAZOLE 40 MG TABLET PO (08:52)
[2019-12-12] MEDS: POTASSIUM CHLORIDE 20 MEQ TABLET 40 MEQ PO (09:15)
[2019-12-12 09:32] LABS: Ammonia < 9 umol/L (9-30)
[2019-12-12] MEDS: AMPICILLIN SODIUM/SULBACTAM 3 GM in SODIUM CHLORIDE 0.9% IV 100 ML IVPB ×2 (10:46→17:15)
--- NOTE | 2019-12-12 11:38 | WPDINFPN2 ---
Progress Note: A&P Assessment and Plan (1) C. perfringens infection: Code(s): B96.7 - Clostridium perfringens [C. perfringens] as the cause of diseases classified elsewhere Status: Acute Assessment and Plan: 1. C. perfringens bacteremia with infection, hepatic source, beta lactamase negative. Full susceptibility still in process 2. Colon cancer with met to liver REC AmpSulbactam # 3 / 5 days tentatively, continuiong this agent rather than PCN due to potential for co-pathogens. Anticipate another 2 days IV therapy, then oral. On analgesics Subjective Date/time seen: 12/12/19 11:38 Interval history: feels about the same Exam Narrative: Exam Narrative: afebrile Const: General: no acute distress Eyes: General: appearance normal, both eyes and all related structures Resp: Effort & Inspection: normal respiratory effort Auscultation: clear to auscultation bilaterally and diminished lung sounds Cardio: Rate: regular rate Rhythm: regular rhythm Heart sounds: no gallops and no murmurs GI: Inspection: distended GI Palp: Yes Soft to palpation, No Tenderness to palpation present (GI) and No Guarding due to palpation present (GI) Skin: General skin exam: normal color Objective Data Vital Signs Vital Signs: Vital Signs - 24 hr 12/11/19 14:00 12/11/19 20:07 12/11/19 20:31 Temperature 36.6 C Pulse Rate 94 66 66 Respiratory Rate 19 16 Blood Pressure 134/79 Pulse Oximetry 95 95 12/11/19 22:00 12/12/19 05:53 12/12/19 08:52 Temperature 37.4 C 36.9 C Pulse Rate 92 108 H 108 H Respiratory Rate 18 18 Blood Pressure 129/77 148/81 H Pulse Oximetry 95 91 Intake/Output Intake/Output: Intake & Output 12/09/19 12/10/19 12/11/19 12/12/19 23:59 23:59 23:59 23:59 Intake Total 2300 2360 3900 730 Output Total 800 2000 1200 1800 Balance 2241 919 3140 -1070 Meds/Results Medications: Active Medications Generic Name Dose Route Start Last Admin Trade Name Freq PRN Reason Stop Dose Admin Acetaminophen 650 mg 12/08/19 12:16 12/11/19 17:02 Tylenol Tablet PO 650 mg Q4H PRN Administration Mild Pain (1-3) or Fever Hydrocodone Bitart/Acetaminophen 1 tab 12/08/19 16:42 12/12/19 08:52 [place] 5-325 Mg PO 1 tab Q4H PRN Administration Pain Rated 4-6 Amoxicillin/Clavulanate Potassium 1 tablet 12/12/19 14:00 Augmentin 500-125 Mg Tab PO Q8HR NI Ampicillin Sodium/Sulbactam 100 mls @ 200 mls/hr 12/10/19 18:00 12/12/19 10:46 Sodium 3 gm/ Sodium Chloride IVPB 100 mls/hr Q6HR NI Administration Metoprolol Tartrate 12.5 mg 12/09/19 21:00 12/12/19 08:52 Lopressor PO 12.5 mg Q12HR NI Administration Pantoprazole Sodium 40 mg 12/08/19 09:00 12/12/19 08:52 Protonix PO 40 mg DAILY NI Administration Radiology Results: ITS Impressions Head CT 12/07/19 14:40 IMPRESSION: 1. Unchanged extensive nonspecific cerebral white matter disease, which likely represents chronic small vessel ischemic disease. Cervical Spine CT 12/07/19 14:45 IMPRESSION: 1. No fracture. 2. Moderate cervical spondylosis. Shoulder X-Ray 12/07/19 15:07 Impression: 1: No acute fracture. Shoulder X-Ray 12/07/19 15:07 Impression: 1: No acute fracture. Labs Labs: Laboratory Results - last 24 hr 12/12/19 12/12/19 12/12/19 05:54 05:54 09:09 WBC 10.0 RBC 3.77 L Hgb 12.3 Hct 38.5 MCV 102.1 H MCH 32.6 MCHC 31.9 L RDW 15.3 H Plt Count 208 MPV 11.0 H Sodium 138 Potassium 3.1 L Chloride 96 L Carbon Dioxide 30 BUN 10 Creatinine 0.60 L Estim Creat Clear Calc 75 Estimated GFR > 60 Glucose 110 H Calcium 8.5 Total Bilirubin 0.4 AST 22 ALT 15 Alkaline Phosphatase 208 H Ammonia < 9 L Total Protein 6.0 L Albumin 3.1 L Vitamin B12 993.0 H
[2019-12-12 11:39] LABS: Folic Acid 15.4 ng/mL (2.76->20)
[2019-12-12 14:00] VITALS: BP 125/67; PULSE 96; RESP 16; TEMP 37.1; O2SAT 96
--- NOTE | 2019-12-12 15:41 | PM.IMPN ---
Progress Note: A&P Assessment and Plan (1) Sepsis: Qualifiers: Sepsis acute organ dysfunction status: without acute organ dysfunction Sepsis type: sepsis due to unspecified organism Qualified Code(s): A41.9 - Sepsis, unspecified organism Code(s): A41.9 - Sepsis, unspecified organism Status: Acute Assessment and Plan: Septicemia with criteria met on admission. Result of UTI and Clostridium perfringens. Urine culture with Klebsiella pneumonia. Blood cultures x2 positive for Clostridium perfringens. Was on IV ceftriaxone and vancomycin with IV ampicillin added. Now abx narrowed to Unasyn. BCx sensitivities are pending but Beta Lactamase negative. Continue Unasyn Day3 of 5. Will continue PT/OT. Will need SNF placement at discharge. Continue to follow. Appreciate Dr Muse's input. (2) UTI (urinary tract infection): Qualifiers: Hematuria presence: without hematuria Urinary tract infection type: acute cystitis Qualified Code(s): N30.00 - Acute cystitis without hematuria Code(s): N39.0 - Urinary tract infection, site not specified Status: Acute Assessment and Plan: Urine culture growing Klebsiella pneumonia. Continue IV ampicillin/sulbactam. (3) C. perfringens infection: Code(s): B96.7 - Clostridium perfringens [C. perfringens] as the cause of diseases classified elsewhere Status: Acute Assessment and Plan: Blood cultures x2 positive for Clostridium perfringens. Patient with known metastatic colon cancer and felt to be the source of this infection. Beta Lactamase negative. Sensitivities pending. Abx adjusted and currently on IV ampicillin/sulbactam as noted above. Continue the same. (4) Sinus tachycardia: Code(s): R00.0 - Tachycardia, unspecified Status: Acute Assessment and Plan: Concern for possible atrial fibrillation while in the emergency room but EKG showing sinus tachycardia. Tachycardia felt a result of infection. Heart rate now remains mostly well controlled on Metoprolol. Continue to monitor. (5) Hypertension: Qualifiers: Hypertension type: essential hypertension Qualified Code(s): I10 - Essential (primary) hypertension Code(s): I10 - Essential (primary) hypertension Status: Chronic Assessment and Plan: Blood pressure reviewed on 12/12/2019. Blood pressure well controlled. Low-dose metoprolol tartrate added which will continue. Will continue to monitor. Was not on medication at home. (6) Depression: Qualifiers: Active/Remission status: currently active Depression Type: major depressive disorder Major depression episode severity: unspecified Major depression recurrence: unspecified whether recurrent Qualified Code(s): F32.9 - Major depressive disorder, single episode, unspecified Code(s): F32.9 - Major depressive disorder, single episode, unspecified Status: Chronic Assessment and Plan: Patient with the diagnosis of depression but not on medication at home. Will continue to monitor for now. (7) Malignant neoplasm of colon, unspecified: Qualifiers: Colon location: unspecified part of colon Qualified Code(s): C18.9 - Malignant neoplasm of colon, unspecified Code(s): C18.9 - Malignant neoplasm of colon, unspecified Status: Acute Assessment and Plan: Patient with known metastatic colon cancer originally diagnosed in October 2016. She underwent right hemicolectomy in November 2016 and eventually had Port-A-Cath placed in January [address] scan in October showing a left hepatic lobe mass of with slight increase in size, consistent with worsening metastatic disease and stable intrahepatic biliary dilatation caused by mass effect of the liver mass. She is followed by Dr. Crawford as an outpatient and is currently on oral capecitabine. Will need to follow up with Oncology after dischar
[2019-12-12 21:26] LABS: Myoglobin, Urine 59 mcg/L (<28)
[2019-12-12 21:44] VITALS: PULSE 91
[2019-12-12 21:45] VITALS: BP 131/50; PULSE 91; RESP 16; TEMP 36.8; O2SAT 98
[2019-12-13] MEDS: AMPICILLIN SODIUM/SULBACTAM 3 GM in SODIUM CHLORIDE 0.9% IV 100 ML IVPB ×5 (00:38→23:39)
[2019-12-13 06:00] VITALS: BP 148/92; PULSE 110; RESP 20; TEMP 37.1; O2SAT 94
--- NOTE | 2019-12-13 06:12 | ECG_ITS ---
Measurements Intervals [place] Rate: 105 P: [place]: 0 QRS: -11 QRSD: 97 T: 2 QT: 380 QTc: 504 Interpretive Statements SINUS RHYTHM WITH SHORT [place] INTERVAL VENTRICULAR COUPLET AND FREQUENT ATRIAL AND VENTRICULAR PREMATURE COMPLEXES VOLTAGE CRITERIA FOR LVH ABNORMAL ECG Electronically Signed On 12-13-2019 6:48:15 [employer] by August De Jesus D.O.
[2019-12-13 07:54] LABS: Blood Urea Nitrogen 9 mg/dL (7-17); Calcium 8.6 mg/dL (8.4-10.2); Carbon Dioxide 31 mmol/L (22-30); Chloride 97 mmol/L (98-107); Estimated CRCL calculation 74 ml/min; Estimated Glomerular Filt Rate > 60; Glucose 119 mg/dL (65-105); Potassium 3.7 mmol/L (3.4-5.0); Sodium 135 mmol/L (137-145)
[2019-12-13 10:58] VITALS: BP 119/54; PULSE 97; RESP 18; TEMP 36.6; O2SAT 97
[2019-12-13 11:00] VITALS: PULSE 92
[2019-12-13] MEDS: METOPROLOL TARTRATE 12.5 MG TABLET PO ×2 (11:00→21:05)
[2019-12-13] MEDS: PANTOPRAZOLE 40 MG TABLET PO (11:00)
--- NOTE | 2019-12-13 12:49 | WPDINFPN2 ---
Progress Note: A&P Assessment and Plan (1) C. perfringens infection: Code(s): B96.7 - Clostridium perfringens [C. perfringens] as the cause of diseases classified elsewhere Status: Acute Assessment and Plan: 1. C. perfringens bacteremia with infection, hepatic source, beta lactamase negative. No further susceptibility testing planned. Still with pain, which is not specific for ongoing infection however. 2. Colon cancer with met to liver REC AmpSulbactam # 4 / 5 days tentatively, continuing this agent rather than PCN due to potential for co-pathogens. If no deterioration, tomorrow begin Augmentin 500 tid x 9 days. On analgesics Subjective Date/time seen: 12/13/19 12:49 Interval history: Pain minimal at rest, + upper abd pain with movement Exam Narrative: Exam Narrative: afebrile Const: General: no acute distress Resp: Effort & Inspection: normal respiratory effort Auscultation: clear to auscultation bilaterally Cardio: Rate: regular rate Rhythm: regular rhythm Heart sounds: no gallops and no murmurs GI: Inspection: distended GI Palp: Yes Soft to palpation, No Tenderness to palpation present (GI) and No Guarding due to palpation present (GI) Objective Data Vital Signs Vital Signs: Vital Signs - 24 hr 12/12/19 14:00 12/12/19 21:44 12/12/19 21:45 Temperature 37.1 C 36.8 C Pulse Rate 96 91 91 Respiratory Rate 16 16 Blood Pressure 125/67 131/50 L Pulse Oximetry 96 98 12/13/19 06:00 12/13/19 10:58 12/13/19 11:00 Temperature 37.1 C 36.6 C Pulse Rate 110 H 97 92 Respiratory Rate 20 18 Blood Pressure 148/92 H 119/54 L Pulse Oximetry 94 97 Intake/Output Intake/Output: Intake & Output 12/10/19 12/11/19 12/12/19 12/13/19 23:59 23:59 23:59 23:59 Intake Total 2360 3900 1760 400 Output Total 2000 1200 3600 Balance 360 2700 -1840 400 Meds/Results Medications: Active Medications Generic Name Dose Route Start Last Admin Trade Name Freq PRN Reason Stop Dose Admin Acetaminophen 650 mg 12/08/19 12:16 12/11/19 17:02 Tylenol Tablet PO 650 mg Q4H PRN Administration Mild Pain (1-3) or Fever Hydrocodone Bitart/Acetaminophen 1 tab 12/08/19 16:42 12/13/19 12:17 Tina 5-325 Mg PO 1 tab Q4H PRN Administration Pain Rated 4-6 Ampicillin Sodium/Sulbactam 100 mls @ 200 mls/hr 12/10/19 18:00 12/13/19 12:18 Sodium 3 gm/ Sodium Chloride IVPB 200 mls/hr Q6HR NI Administration Metoprolol Tartrate 12.5 mg 12/09/19 21:00 12/13/19 11:00 Lopressor PO 12.5 mg Q12HR NI Administration Pantoprazole Sodium 40 mg 12/08/19 09:00 12/13/19 11:00 Protonix PO 40 mg DAILY NI Administration Radiology Results: ITS Impressions Head CT 12/07/19 14:40 IMPRESSION: 1. Unchanged extensive nonspecific cerebral white matter disease, which likely represents chronic small vessel ischemic disease. Cervical Spine CT 12/07/19 14:45 IMPRESSION: 1. No fracture. 2. Moderate cervical spondylosis. Shoulder X-Ray 12/07/19 15:07 Impression: 1: No acute fracture. Shoulder X-Ray 12/07/19 15:07 Impression: 1: No acute fracture. Labs Labs: Laboratory Results - last 24 hr 12/09/19 12/13/19 22:11 07:35 Sodium 135 L Potassium 3.7 Chloride 97 L Carbon Dioxide 31 H BUN 9 Creatinine 0.60 L Estim Creat Clear Calc 74 Estimated GFR > 60 Glucose 119 H Calcium 8.6 Urine Myoglobin 59 H
[2019-12-13 14:00] VITALS: BP 126/55; PULSE 86; RESP 16; TEMP 36.8; O2SAT 95
--- NOTE | 2019-12-13 16:03 | PM.IMPN ---
Progress Note: A&P Assessment and Plan (1) Sepsis: Qualifiers: Sepsis acute organ dysfunction status: without acute organ dysfunction Sepsis type: sepsis due to unspecified organism Qualified Code(s): A41.9 - Sepsis, unspecified organism Code(s): A41.9 - Sepsis, unspecified organism Status: Acute Assessment and Plan: Septicemia with criteria met on admission. Result of UTI and Clostridium perfringens. Urine culture with Klebsiella pneumonia. Blood cultures x2 positive for Clostridium perfringens. Was on IV ceftriaxone and vancomycin with IV ampicillin added. Now abx narrowed to Unasyn. BCx showing Beta Lactamase negative. Continue Unasyn Day4 of 5. Will continue PT/OT. Will need SNF placement at discharge. Continue to follow. Appreciate Dr Muse's input. (2) C. perfringens infection: Code(s): B96.7 - Clostridium perfringens [C. perfringens] as the cause of diseases classified elsewhere Status: Acute Assessment and Plan: Blood cultures x2 positive for Clostridium perfringens. Patient with known metastatic colon cancer and felt to be the source of this infection. Beta Lactamase negative. Abx adjusted and currently on IV ampicillin/sulbactam as noted above. Continue the same. (3) UTI (urinary tract infection): Qualifiers: Hematuria presence: without hematuria Urinary tract infection type: acute cystitis Qualified Code(s): N30.00 - Acute cystitis without hematuria Code(s): N39.0 - Urinary tract infection, site not specified Status: Acute Assessment and Plan: Urine culture growing Klebsiella pneumonia. Continue IV ampicillin/sulbactam. (4) Sinus tachycardia: Code(s): R00.0 - Tachycardia, unspecified Status: Acute Assessment and Plan: Concern for possible atrial fibrillation while in the emergency room but EKG showing sinus tachycardia. Tachycardia felt a result of infection. Heart rate now remains mostly well controlled on Metoprolol. EKG performed for 'right breast pain' last night showing frequent PACs and PVCs; LVH. Continue to monitor. (5) Hypertension: Qualifiers: Hypertension type: essential hypertension Qualified Code(s): I10 - Essential (primary) hypertension Code(s): I10 - Essential (primary) hypertension Status: Chronic Assessment and Plan: Blood pressure reviewed on 12/13/2019. Blood pressure well controlled. Low-dose metoprolol tartrate added which will continue. Will continue to monitor. Was not on medication at home. (6) Depression: Qualifiers: Active/Remission status: currently active Depression Type: major depressive disorder Major depression episode severity: unspecified Major depression recurrence: unspecified whether recurrent Qualified Code(s): F32.9 - Major depressive disorder, single episode, unspecified Code(s): F32.9 - Major depressive disorder, single episode, unspecified Status: Chronic Assessment and Plan: Patient with the diagnosis of depression but not on medication at home. Will continue to monitor for now. (7) Malignant neoplasm of colon, unspecified: Qualifiers: Colon location: unspecified part of colon Qualified Code(s): C18.9 - Malignant neoplasm of colon, unspecified Code(s): C18.9 - Malignant neoplasm of colon, unspecified Status: Acute Assessment and Plan: Patient with known metastatic colon cancer originally diagnosed in October 2016. She underwent right hemicolectomy in November 2016 and eventually had Port-A-Cath placed in January [address] scan in October showing a left hepatic lobe mass of with slight increase in size, consistent with worsening metastatic disease and stable intrahepatic biliary dilatation caused by mass effect of the liver mass. Patinet having trouble remembering her medications which is contributing to her worsening finding
[2019-12-13] MEDS: DIPHENHYDRAMINE 1%/ZINC 0.1% CREAM 30 GM TUBE 1 APPLIC TOPICAL (18:43)
[2019-12-13 21:05] VITALS: PULSE 96
[2019-12-13 22:00] VITALS: BP 138/63; PULSE 92; RESP 16; TEMP 36.7; O2SAT 92
[2019-12-14] MEDS: AMPICILLIN SODIUM/SULBACTAM 3 GM in SODIUM CHLORIDE 0.9% IV 100 ML IVPB ×2 (05:23→12:07)
[2019-12-14 06:00] VITALS: BP 135/84; PULSE 98; RESP 16; TEMP 36.9; O2SAT 93
[2019-12-14 09:19] VITALS: PULSE 92
[2019-12-14] MEDS: PANTOPRAZOLE 40 MG TABLET PO (09:19)
[2019-12-14] MEDS: METOPROLOL TARTRATE 12.5 MG TABLET PO (09:19)
--- NOTE | 2019-12-14 11:06 | PCNWS ---
Weekly nutritional screen. Patient is tolerating current diet with adequate intake. No weight loss reported. No nutritional needs at this time.
--- NOTE | 2019-12-14 11:15 | PM.DS ---
DS: Diagnosis Admitting Diagnosis Admitting Diagnosis: Urinary tract infection, site not specified Discharge Diagnosis (1) Sepsis: Qualifiers: Sepsis acute organ dysfunction status: without acute organ dysfunction Sepsis type: sepsis due to unspecified organism Qualified Code(s): A41.9 - Sepsis, unspecified organism Code(s): A41.9 - Sepsis, unspecified organism Status: Acute Assessment and Plan: Septicemia with criteria met on admission. Result of UTI and Clostridium perfringens. Urine culture with Klebsiella pneumonia. Blood cultures x2 positive for Clostridium perfringens. Was on IV ceftriaxone and vancomycin with IV ampicillin added. ID consulted and abx narrowed to Unasyn. BCx showing Beta Lactamase negative. Continued Unasyn for 5 days. Plan to discharge on Augmentin x 9 days. She had PT/OT while here. (2) C. perfringens infection: Code(s): B96.7 - Clostridium perfringens [C. perfringens] as the cause of diseases classified elsewhere Status: Acute Assessment and Plan: Blood cultures x2 positive for Clostridium perfringens. Patient with known metastatic colon cancer and felt GI to be the source of this infection. Still with right upper quadrant pain but could be related to the cancer. Beta Lactamase negative. Abx as noted above. (3) UTI (urinary tract infection): Qualifiers: Hematuria presence: without hematuria Urinary tract infection type: acute cystitis Qualified Code(s): N30.00 - Acute cystitis without hematuria Code(s): N39.0 - Urinary tract infection, site not specified Status: Acute Assessment and Plan: Urine culture growing relatively pansensitive Klebsiella pneumonia. Treated with IV ampicillin/sulbactam. (4) Sinus tachycardia: Code(s): R00.0 - Tachycardia, unspecified Status: Acute Assessment and Plan: Concern for possible atrial fibrillation while in the emergency room but EKG showing sinus tachycardia. Tachycardia felt a result of sepsis/infection. Heart rate well controlled on Metoprolol. EKG performed for 'right breast pain' showing frequent PACs and PVCs; LVH. Not felt to be cardiac chest pain. (5) Hypertension: Qualifiers: Hypertension type: essential hypertension Qualified Code(s): I10 - Essential (primary) hypertension Code(s): I10 - Essential (primary) hypertension Status: Chronic Assessment and Plan: Blood pressure monitored frequently Blood pressure well controlled. Low-dose metoprolol tartrate added which was continued. Was not on medication at home. (6) Depression: Qualifiers: Active/Remission status: currently active Depression Type: major depressive disorder Major depression episode severity: unspecified Major depression recurrence: unspecified whether recurrent Qualified Code(s): F32.9 - Major depressive disorder, single episode, unspecified Code(s): F32.9 - Major depressive disorder, single episode, unspecified Status: Chronic Assessment and Plan: Patient with the diagnosis of depression but not on medication at home. She was also confused at times but ammonia, TSH, B12 normal. Dtr states mio has been having confusion with forgetting medications when at home. Suspect patient with underlying dementia. (7) Malignant neoplasm of colon, unspecified: Qualifiers: Colon location: unspecified part of colon Qualified Code(s): C18.9 - Malignant neoplasm of colon, unspecified Code(s): C18.9 - Malignant neoplasm of colon, unspecified Status: Acute Assessment and Plan: Patient with known metastatic colon cancer originally diagnosed in October 2016. She underwent right hemicolectomy in November 2016 and eventually had Port-A-Cath placed in January [address] scan in October showing a left hepatic lobe mass of with slight increase in size, consistent with worsening me
[2019-12-14 14:00] VITALS: BP 133/53; PULSE 70; RESP 16; TEMP 36.6; O2SAT 93
== END 2019-12-14 13:25 | DRG 690 ==
LOC: ANHED 18:08 → ANHIMU 22:19 → ANH3MEDSUR 12-08 23:44 → ANHIMU 12-17 15:03
PROVIDERS: Internal Medicine; Nurse Practitioner; Admitting Provider Hospitalist; Emergency Provider Emergency Medicine; PCP Internal Medicine; Visit Provider Hospitalist
DX: N39.0 Urinary tract infection, site not specified (principal); C18.9 Malignant neoplasm of colon, unspecified; C78.7 Secondary malignant neoplasm of liver and intrahepatic bile duct; B96.1 Klebsiella pneumoniae [K. pneumoniae] as the cause of diseases classified elsewhere; B96.7 Clostridium perfringens [C. perfringens] as the cause of diseases classified elsewhere; R00.0 Tachycardia, unspecified; F32.9 Major depressive disorder, single episode, unspecified; G25.81 Restless legs syndrome; I10 Essential (primary) hypertension; I48.91 Unspecified atrial fibrillation; Z23 Encounter for immunization; I25.2 Old myocardial infarction; Z90.49 Acquired absence of other specified parts of digestive tract; Z98.42 Cataract extraction status, left eye; Z98.41 Cataract extraction status, right eye
CPT/HCPCS: 36415; 51701; 70450; 71101; 72125; 73030; 80048; 80053; 80202; 81001; 82140; 82565; 82607; 82746; 83605; 83735; 83874; 84443; 85025; 85027; 85610; 85730; 87040; 87077; 87086; 87088; 87185; 87186; 90471; 90686; 93005; 96361; 96365; 96375; 97110; 97116; 97162; 97166; 97530; 97535; 99285; A9270; G0008; J0290; J0295; J0696; J3370; J7030

== ENCOUNTER 2019-12-28 18:49 | Inpatient (IN) | payer MEDICARE, SELFPAY ==
--- NOTE | ~2019-12-28 | XR_ITS ---
EXAMINATION: XR abdomen/kub 1V DATE: 12/28/2019 21:07 INDICATION: Diffuse abdominal pain and distention TECHNIQUE: A supine view of the abdomen on 2 radiographs was obtained. COMPARISON: CT dated 12/28/2019 FINDINGS: Post cystectomy clips in the right upper quadrant. No dilated loops of gas-filled bowel to suggest ob struction. Excreted contrast in the bilateral renal collecting systems, portions of the ureters and i n the bladder from the immediate prior contrast enhanced CT. Severe lumbar spondylosis. IMPRESSION: 1. No dilated gas-filled bowel to suggest obstruction. Reviewed, dictated and finalized at location A. E AND WAGON DRIVER
--- NOTE | ~2019-12-28 | CT_ITS ---
EXAMINATION: CT abdomen pelvis w con DATE: 12/28/2019 20:49 INDICATION: Abdominal pain and distention. TECHNIQUE: Computed tomography (CT) of the abdomen and pelvis was performed with 100 mL Omnipaque-350 intravenous contrast. Automated exposure control and iterative reconstruction technique were employe d. The dose-length product was 1159.99 mGy-cm. COMPARISON: 11/15/2019 FINDINGS: Linear extension of small subpleural nodules measuring 2.2 cm in length and 405 mm in thickness along the posterior right lower lobe. Cardiomegaly. Atherosclerotic coronary artery calcification and aort ic valve calcification. Distal tip of a central venous catheter at the high right atrium. Likely refl uxed fluid in the distal esophagus. No significant interval change in a hypoenhancing 7.7 x 6.4 cm mass in segment 4A and B of the liver. There is persistent intrahepatic biliary ductal dilation relatively mild in the right hepatic lobe a nd moderate to severe in the left hepatic lobe. There is a new approximately 2.8 x 2.3 x 3.5 cm cysti c lesion in segment 2 of the liver which does not appear contiguous with the dilated biliary ducts an d with mild haziness to the overlying perihepatic fat suggesting possibility of a hepatic abscess. Ch olecystectomy clips at the gallbladder fossa. Spleen, pancreas and left adrenal gland are normal. Chronic 3.3 x 1.7 cm right adrenal mass with punc mejía calcifications without significant change since PET CT dated 01/26/2018 at which point it demonstr ated no abnormal FDG uptake suggesting a benign etiology. Bilateral renal cysts the largest measuring 6.3 cm at the upper pole of the left kidney. There is severe colonic sigmoid diverticulosis without adjacent inflammatory change to suggest divert iculitis. Oh stopper change of right hemicolectomy with ileocolic anastomosis in the mid anterior low er abdomen. There is fluid throughout the small bowel extending across the ileocolic anastomosis with no jhonny dilation or transition point to suggest obstruction. The anterior wall of the small bowel m edially proximal to the anastomosis projects into a small ventral hernia. There is additional more ce ph[place]ad [place] ventral hernia containing the anterior wall of the proximal most remaining colon. The uterus is not identified and has likely been surgically resected. Bladder is normal. No interv al change in a previously biopsied mixed soft tissue and fat attenuation presacral mass. See patholog y from prior biopsy for further detail. No free intraperitoneal gas or fluid. No pathologically enlar ged abdominal or pelvic lymphadenopathy. Severe lumbar spondylosis. IMPRESSION: 1. Subtle haziness to the anterior perihepatic fat overlying a new 2.8 x 2.3 x 3.5 cm cystic lesion i n segment 2 of liver suspicious for hepatic abscess. 2. No significant interval change in a 7.1 cm mass centered at the junction of segments 4A and 4B of the liver consistent with given history of metastatic colon cancer. 3. No significant change in secondary intrahepatic biliary ductal dilation most prominent in the left hepatic lobe. 4. Nonspecific small subpleural nodules at the posterior margin of the right lower lobe which could r epresent additional metastatic disease. 5. Right hemicolectomy with ileocolic anastomosis likely for reported colon cancer. 6. Severe sigmoid diverticulosis. Reviewed, dictated and finalized at location A. T CUSTODIAN IMPRESSION: 1. Subtle haziness to the anterior perihepatic fat overlying a new 2.8 x 2.3 x 3.5 cm cystic lesion in segment 2 of liver suspicious for hepatic abscess. 2. No significant interval change in a 7.1 cm mass centered at the junction of segments 4A and 4B of the liver consistent with given history of metastatic col on cancer. 3. No signi
--- NOTE | ~2019-12-28 | XR_ITS ---
EXAMINATION: XR chest 2V DATE: 12/28/2019 21:09 INDICATION: Shortness of breath, mid chest pain and upper abdominal pain. TECHNIQUE: frontal and lateral views of the chest were obtained. COMPARISON: Chest radiograph dated 08/31/2018 FINDINGS: Left subclavian central venous port catheter with distal tip near the superior cavoatrial junction. C ardiomegaly with small left paracardial fat pad extending to the costophrenic angle. No new airspace opacities, pulmonary edema, pleural effusion or pneumothorax. IMPRESSION: 1. Cardiomegaly. No acute cardiopulmonary disease. Reviewed, dictated and finalized at location A. OLOGY LAB TECHNICIAN
--- NOTE | ~2019-12-28 | US_ITS ---
EXAMINATION: US abdomen limited DATE: 01/01/2020 12:36 INDICATION: Suspected hepatic abscess TECHNIQUE: Multiple grayscale and Doppler ultrasound images of the liver were obtained. COMPARISON: None FINDINGS: Large heterogeneously hypoechoic mass at the junction at the medial segment of the left hepatic lobe measuring approximately 7.1 x 7.0 cm. There is moderate biliary ductal dilation the lateral segment o f the left hepatic lobe. There is a 2.0 x 1.1 cm hypoechoic lesion in segment 2 of the liver without discernible internal flow on color Doppler but also without a well-defined peripheral wall or posteri or acoustic enhancement to more specifically suggest a cystic lesion or differential would include in fection on the spectrum between phlegmonous change and abscess or potentially necrosing metastases. IMPRESSION: 1. 0.0 x 1.1 cm hypoechoic lesion in segment 2 of the liver corresponding to the lesion on prior CT. Given the small size of the lesion and the indeterminate appearance potentially still either solid or phlegmonous, either of which would not benefit from a drainage catheter, the planned drain catheter placement was deferred at this time. Reviewed, dictated and finalized at location A. STIAN SCIENCE READER IMPRESSION: 1. 0.0 x 1.1 cm hypoechoic lesion in segment 2 of the liver corresponding to th e lesion on prior CT. Given the small size of the lesion and the indeterminate appearance potentially still either solid or phlegmonous, either of which would not benefit from a drainage catheter, the planned drain catheter placement was deferred at this time.
--- NOTE | 2019-12-28 18:46 | ED.ABDPAIN ---
HPI - Abdominal Pain General Chief Complaint: Abdominal Pain Stated Complaint: abd pain Time Seen by Provider: 12/28/19 18:49 Source: patient and EMS Mode of arrival: EMS Limitations: no limitations History of Present Illness HPI narrative: An 87 y/o female presents to the ED, via EMS from [place], with c/o generalized ABD pain. Pt states that the ABD pain started 3 hours ago and has been constant since. EMS notes that she was at [facility] 1.5 weeks ago for sepsis. Pt reports nausea, but denies diarrhea and vomiting. She has a PMHx of colon cancer, GERD, COPD, and HTN. MD elicited complaint: abdominal pain (Generalized) Onset (ago): hour(s) (3) Pain Consistency: constant Location: diffuse Associated symptoms: nausea Related Data Home Medications Medication Instructions Recorded Confirmed capecitabine 1,000 mg PO BID 09/07/19 12/29/19 esomeprazole magnesium 40 mg DAILY MDD 40 12/07/19 12/29/19 Allergies Allergy/AdvReac Type Severity Reaction Status Date / Time No Known Allergies Allergy Verified 12/29/19 02:09 Review of Systems Review of Systems: Narrative: CONSTITUTIONAL: Denies fever, chills, or sweats. EYES: Denies visual changes, redness, or discharge. ENT: Denies rhinorrhea, congestion, sore throat, or otalgia. CARDIOVASCULAR: Denies chest pain, palpitations, or edema. RESPIRATORY: Denies cough or dyspnea. GASTROINTESTINAL: Denies vomiting or diarrhea. Reports abdominal pain and nausea. GENITOURINARY: Denies dysuria or hematuria. SKIN: Denies rash or itching. MUSCULOSKELETAL: Denies back pain, joint pain, or myalgia. NEUROLOGIC: Denies headache, numbness, or weakness. [facility] Past Medical History Medical History Colon cancer metastasized to liver COPD (chronic obstructive pulmonary disease) Depression GERD (gastroesophageal reflux disease) Hypertension Kidney stones Myocardial infarction Restless leg syndrome Surgical History Surgical History H/O bilateral cataract extraction History of appendectomy History of cholecystectomy History of colon resection History of lithotripsy History of tonsillectomy Family History Family History Father Lung cancer Sibling Cancer Social History Social History (Updated 12/29/19 @ 14:45 by Roland Maloney MD) Social History: patient went to a assisted facility after last hospitalization. she was living home alone prior to that hospitalization. Smoking packs per day: 2 Smoking cigarettes per day: 40.0 Years smoked: 20 Smoking pack-years: 40.00 Smoking status: Heavy tobacco smoker Tobacco type: cigarettes Smoking end date: 11/21/07 Alcohol intake: never Substance use: never Substance use type: does not use Gender identity (if verbalized by the patient): Female Spiritual care concerns: No Agree to blood products: Yes Exam Narrative: Exam Narrative: GENERAL: Well-appearing, well-nourished, and in no acute distress. HEAD: Normocephalic, atraumatic. EYES: PERRLA and EOMI. ENT: Nares clear, no rhinorrhea or epistaxis. Mucous membranes moist. NECK: Supple. CHEST: Clear to auscultation. No respiratory distress. HEART: Regular rate and rhythm. No murmur heard. Normal peripheral pulses. ABDOMEN: Soft, diffuse tenderness, distended, rebounding, normal active bowel sounds. Non-rigid overlying abdominal scar which is well healed. Umbilical hernia that is non-tender. EXTREMITIES: Normal range of motion. No edema. SKIN: Warm, dry, no rash. NEURO: No focal deficits. Alert and oriented X3. Course Course Emergency Course: Patient presented for evaluation of abdominal pain. Patient also has is distention on exam. She is hemodynamically stable. She is very diffusely tender. IV access obtained and labs are drawn. Patient was given IV fluids, antiemetic and pain medication. Labo
[2019-12-28 18:52] VITALS: BP 159/93; PULSE 88; RESP 18; TEMP 36.6; O2SAT 96
--- NOTE | 2019-12-28 19:00 | ECG_ITS ---
Measurements Intervals [place] Rate: 91 P: 54 IL: 123 QRS: -16 QRSD: 101 T: -7 QT: 372 QTc: 459 Interpretive Statements SINUS RHYTHM WITH SHORT IL INTERVAL ATRIAL PREMATURE COMPLEXES DELAYED PRECORDIAL R/S TRANSITION VOLTAGE CRITERIA FOR LVH BORDERLINE T WAVE ABNORMALITY- INFERIOR LEADS BASELINE ARTIFACT- V3 BORDERLINE ECG Electronically Signed On 12-28-2019 20:02:13 MAINTENANCE MAN by August De Jesus D.O.
[2019-12-28] MEDS: SODIUM CHLORIDE 0.9% IV 1,000 ML 999 ML IV CONT (19:16)
[2019-12-28 19:17] LABS: Basophils Percent Auto 0.3 % (0.2-1.2); Eosinophils Absolute Auto 0.3 K/mm3 (0-0.3); Hematocrit 43.3 % (37.0-47.0); Hemoglobin 13.6 g/dL (12.0-15.0); Immature Granulocyte Absolute 0.05 K/mm3 (0.00-0.031); Immature Granulocyte Percent A 0.4 % (0-0.5); Lymphocytes Absolute Auto 1.75 K/mm3 (0.9-3.2); Lymphocytes Percent Auto 13.6 % (18.3-44.2); Mean Corpuscular HGB Conc 31.4 g/dl (32-36); Mean Corpuscular Hemoglobin 32.5 pg (26-34); Mean Corpuscular Volume 103.6 fl (80-100); Mean Platelet Volume 10.7 fl (7.4-10.4); Monocytes Absolute Auto 1.2 K/mm3 (0.1-0.6); Neutrophils Absolute Auto 9.6 K/mm3 (1.3-6.7); Neutrophils Percent Auto 74.7 % (45.5-73.1); Platelet Count Result 278 k/mm3 (150-375); Red Blood Count 4.18 M/mm3 (4.2-5.4); White Blood Count 12.9 K/mm3 (4.5-10.0)
[2019-12-28] MEDS: ONDANSETRON INJ 4 MG/2 ML VIAL IV PUSH (19:17)
[2019-12-28] MEDS: MORPHINE SULFATE 4 MG/ML INJ IV PUSH (19:17)
[2019-12-28 19:26] LABS: INR 0.9; Prothrombin Time 11.8 Seconds (11.1-14.7)
[2019-12-28 19:27] LABS: Partial Thromboplastin Time 23.8 SECONDS (22.3-36.8)
[2019-12-28 19:29] LABS: Lactic Acid Reflex 1.7 mmol/L (0.7-2.1)
[2019-12-28 19:30] LABS: Alanine Aminotransferase 19 U/L (4-35); Albumin Level 4.3 g/dL (3.5-5.1); Alkaline Phosphatase 262 U/L (38-126); Aspartate Amino Transferase 31 U/L (14-36); Bilirubin,Total 0.3 mg/dL (0.2-1.3); Blood Urea Nitrogen 15 mg/dL (7-17); Calcium 9.6 mg/dL (8.4-10.2); Carbon Dioxide 30 mmol/L (22-30); Chloride 96 mmol/L (98-107); Estimated CRCL calculation 67 ml/min; Estimated Glomerular Filt Rate > 60; Glucose 105 mg/dL (65-105); Potassium 4.2 mmol/L (3.4-5.0); Sodium 136 mmol/L (137-145)
[2019-12-28 19:41] LABS: Troponin I 0.012 ng/mL (0.000-0.034)
[2019-12-28 20:09] LABS: Add Urine Microscopic? YES; Appearance Urine Clear (Clear); Bilirubin Urine Negative (Negative); Blood Urine 1+ (Negative); Color Urine Straw (Yellow); Glucose Urine UA Negative (Negative); Ketones Urine Negative (Negative); Leukocyte Esterase Ur Negative LEU/UL (Negative); Nitrate Urine Negative (Negative); Protein Urine Negative (Negative); Specific Grav Ur 1.009 (1.001-1.035); Squamous Epithelial Cell Urine Rare /hpf (Few); Urobilinogen Urine Negative mg/dL (<2.0)
[2019-12-28 20:38] VITALS: BP 127/68; PULSE 90; RESP 18; O2SAT 97
--- NOTE | 2019-12-28 21:47 | PC.NURSE ---
Called pharmacy to send Zosyn, will send.
[2019-12-28 23:15] VITALS: BP 134/82; PULSE 94; RESP 18; O2SAT 97
[2019-12-28 23:20] VITALS: BP 131/53; PULSE 89; RESP 20; TEMP 36.2; O2SAT 97; BMI 31.7
[2019-12-28 23:34] VITALS: BMI 31.7
--- NOTE | 2019-12-28 23:43 | ADMGEN ---
This patient, Beau Serrano, was admitted to Medical Room 342-01. Patient/family oriented to hospital policies and general routines including ID bracelet, bed and alarms, visiting hours, pain management, procedures, bathroom and other care routines, personal items, smoking policy, room service/diet, and visiting hours. Valuables list has been completed. Information on how to activate the Rapid Response Team has been discussed. Patient/Family are encouraged to report perceived risks to care and to ask questions if they do not understand what they are told or what they should do.
[2019-12-29] MEDS: metroNIDAZOLE 1000MG/ISO 200ML 1,000 MG/200 ML BAG 100 MG IVPB
[2019-12-29] MEDS: SODIUM CHLORIDE 0.9% IV 1,000 ML 125 ML IV CONT ×2 (01:30→13:37)
[2019-12-29 05:45] VITALS: BP 131/73; PULSE 88; RESP 18; TEMP 37.1; O2SAT 94
[2019-12-29] MEDS: metroNIDAZOLE 500 MG/ISO 100ML 500 MG/100 ML BAG 100 MG IVPB ×3 (05:54→22:00)
[2019-12-29 08:00] VITALS: PULSE 88; RESP 18; O2SAT 94
--- NOTE | 2019-12-29 10:51 | PC.NURSE ---
Consult was called for Dr. Muse to his exchange. Per exchange, Ada Muse is covered today by Dr. Mary and he does not come to [facility]. Notified nursing automation and controls supervisor and was informed to call Deborah. Upon calling Dr. Cabrera his voicemail stated that Dr. Sofia was long lines operator for him. Notified nursing automation and controls supervisor of the same. d
--- NOTE | 2019-12-29 13:41 | PM.IMHP ---
H&P: HPI History of Present Illness Chief complaint: Hepatic abscess Narrative: Beau Serrano is a 79 year old female with hx of metastatic colon cancer here for abdominal pain. Patient is alert but confused thus her history is limited. When asked why she is in the hospital she states I do not remember . She does state that she had bilateral upper abdominal pain but cannot tell me when this started. She does not believe that she had fever, chills, nausea or vomiting. She did report nausea to the ER physician. She denies any dysuria or hematuria. She does have diarrhea and constipation at times but cannot elaborate any further. She is not believe that she has had melena or hematochezia. Patient was admitted here on December 08 for sepsis and found to have UTI with Klebsiella as well as septicemia with Clostridium perfringens. No abdominal imaging performed. She continued Unasyn for 5 days and was discharged to a rehab facility on December 14 with Augmentin 500mg Q8hr for 9 more days. she should have a complete her antibiotics on December 23. The alf notes state the patient was on augmentin 875mg BID with her last dose on 12/27/19. Patient seen in the ER and was hemodynamically stable. No fevers. She had elevated white count. She had a CT of the abdomen and pelvis which showed a possible hepatic abscess. She was started on Zosyn and Flagyl and admitted for further care. Review of Systems Review of Systems: ROS unobtainable: unobtainable due to mental status PMFSH Past Medical History Medical History Colon cancer metastasized to liver Diagnosed in October 2016, status post right hemicolectomy. Found to have a metastatic hepatic lobe mass followed since 2017. COPD (chronic obstructive pulmonary disease) Depression GERD (gastroesophageal reflux disease) Hypertension Kidney stones Myocardial infarction Restless leg syndrome Surgical History Surgical History H/O bilateral cataract extraction History of appendectomy History of cholecystectomy History of colon resection Right Hemicolectomy in November 2016 for colon cancer. History of lithotripsy History of tonsillectomy Family History Family History Father Lung cancer Sibling Cancer Social History Social History Social History: patient went to a detention facility after last hospitalization. she was living home alone prior to that hospitalization. Smoking packs per day: 2 Smoking cigarettes per day: 40.0 Years smoked: 20 Smoking pack-years: 40.00 Smoking status: Former smoker Tobacco type: cigarettes Second hand tobacco smoke exposure: No Smoking end date: 11/21/07 Alcohol intake: never Substance use: never Substance use type: does not use Gender identity (if verbalized by the patient): Female Spiritual care concerns: No Agree to blood products: Yes Meds Home Medications and Allergies Home Medications Medication Instructions Recorded Confirmed Type capecitabine 1,000 mg PO BID 09/07/19 12/29/19 History esomeprazole magnesium 40 mg DAILY MDD 40 12/07/19 12/29/19 History acetaminophen 500 mg PO Q6H PRN #10 cap 12/14/19 12/29/19 Rx diphenhydramine-zinc acetate 1 applic TOPICAL QID PRN #28.3 gm 12/14/19 12/29/19 Rx [Benadryl Itch Stopping] hydrocodone-acetaminophen [[place]] 1 tablet PO Q6H PRN #10 tablet 12/14/19 12/29/19 Rx metoprolol tartrate 12.5 mg PO BID #30 tablet 12/14/19 12/29/19 Rx Allergies Allergy/AdvReac Type Severity Reaction Status Date / Time No Known Allergies Allergy Verified 12/29/19 02:09 Vital Signs Vital Signs - 24 hr 12/28/19 18:52 12/28/19 20:38 12/28/19 23:15 Temperature 97.8 F Pulse Rate 88 90 94 Respiratory Rate 18 18 18 Blood Pressure 159/93
--- NOTE | 2019-12-29 13:56 | PC.NURSE ---
Dr. Muse was paged. He returned called and voiced to do not call exchange regarding him. Always call pager. He voiced that he will see the patient.
[2019-12-29 14:00] VITALS: BP 133/55; PULSE 80; RESP 18; TEMP 36.6; O2SAT 95
[2019-12-29] MEDS: ENOXAPARIN 40 MG/0.4 ML SYRINGE SUB-Q (16:40)
--- NOTE | 2019-12-29 19:30 | PC.NURSE ---
Patient voiced that she only wants to see Dr. Coyne, convex grinder during her admission stay here. Does not want to see Dr. De Jesus during her admission stay. Dr. De Jesus notified of same. Orders received from Dr. De Jesus to discontinue his consult.
[2019-12-29 22:00] VITALS: BP 152/78; PULSE 80; PULSE 92; RESP 16; TEMP 36.3; O2SAT 94
[2019-12-29] MEDS: METOPROLOL TARTRATE 12.5 MG TABLET PO (22:00)
[2019-12-29 22:12] VITALS: PULSE 92; RESP 16; O2SAT 94
[2019-12-30 05:40] VITALS: BP 143/64; PULSE 85; RESP 16; TEMP 36.2; O2SAT 95
[2019-12-30] MEDS: metroNIDAZOLE 500 MG/ISO 100ML 500 MG/100 ML BAG 100 MG IVPB ×2 (06:37→15:26)
[2019-12-30 06:38] LABS: Basophils Percent Auto 0.5 % (0.2-1.2); Eosinophils Absolute Auto 0.3 K/mm3 (0-0.3); Eosinophils Percent Auto 3.9 % (0-4.4); Hematocrit 37.3 % (37.0-47.0); Hemoglobin 11.7 g/dL (12.0-15.0); Immature Granulocyte Absolute 0.04 K/mm3 (0.00-0.031); Immature Granulocyte Percent A 0.5 % (0-0.5); Lymphocytes Absolute Auto 1.19 K/mm3 (0.9-3.2); Lymphocytes Percent Auto 14.5 % (18.3-44.2); Mean Corpuscular HGB Conc 31.4 g/dl (32-36); Mean Corpuscular Hemoglobin 32.9 pg (26-34); Mean Corpuscular Volume 104.8 fl (80-100); Mean Platelet Volume 10.7 fl (7.4-10.4); Monocytes Absolute Auto 0.9 K/mm3 (0.1-0.6); Monocytes Percent Auto 10.4 % (2.6-8.5); Neutrophils Absolute Auto 5.8 K/mm3 (1.3-6.7); Neutrophils Percent Auto 70.2 % (45.5-73.1); Platelet Count Result 204 k/mm3 (150-375); Red Blood Count 3.56 M/mm3 (4.2-5.4); White Blood Count 8.2 K/mm3 (4.5-10.0)
[2019-12-30 06:51] LABS: Blood Urea Nitrogen 12 mg/dL (7-17); Calcium 8.7 mg/dL (8.4-10.2); Carbon Dioxide 27 mmol/L (22-30); Chloride 100 mmol/L (98-107); Estimated CRCL calculation 74 ml/min; Estimated Glomerular Filt Rate > 60; Glucose 93 mg/dL (65-105); Sodium 137 mmol/L (137-145)
[2019-12-30 09:14] VITALS: PULSE 62
[2019-12-30] MEDS: ENOXAPARIN 40 MG/0.4 ML SYRINGE SUB-Q (09:14)
[2019-12-30] MEDS: PANTOPRAZOLE 40 MG TABLET BY MOUTH (09:14)
[2019-12-30] MEDS: METOPROLOL TARTRATE 12.5 MG TABLET PO ×2 (09:14→20:22)
[2019-12-30 09:15] VITALS: PULSE 83; RESP 16; O2SAT 96
[2019-12-30 14:00] VITALS: BP 128/55; PULSE 83; RESP 16; TEMP 36.5; O2SAT 96
--- NOTE | 2019-12-30 16:34 | PM.IMPN ---
Progress Note: A&P Assessment and Plan (1) Abscess of liver: Code(s): K75.0 - Abscess of liver Status: Acute Assessment and Plan: Patient admitted for complaints of abdominal pain with CT scan showing subtle haziness to the anterior perihepatic fat overlying a new 2.8 x 2.3 x 3.5 cm cystic lesion in segment 2 of liver suspicious for hepatic [place]. [place] [address] on admission. Zosyn and Flagyl started. WBC normal now. BCx NGTD. Patient has chronic upper abdominal pain but appears to be more tender now. Infectious disease doctor has been consulted. Discussed with Radiology. They felt the lesion could be drained percutaneously. Continue Zosyn but will stop Flagyl. Continue PT/OT. . (2) C. perfringens infection: Code(s): B96.7 - Clostridium perfringens [C. perfringens] as the cause of diseases classified elsewhere Status: Acute Assessment and Plan: Blood cultures x2 positive for Clostridium perfringens last admission treated with Unasyn and discharge home on Augmentin. It was felt the infection was related to her colon cancer. It appears she completed a course of her antibiotics although they were adjusted after discharge. Blood culture here negative to date. (3) Colon cancer metastasized to liver: Code(s): C18.9 - Malignant neoplasm of colon, unspecified; C78.7 - Secondary malignant neoplasm of liver and intrahepatic bile duct Status: Acute Assessment and Plan: Patient with known metastatic colon cancer originally diagnosed in October 2016. She underwent right hemicolectomy in November 2016 and was noted to have a liver mass of 6cm in October 2017. Port-A-Cath placed in January [address] scan in October 2019 showing a left hepatic lobe mass of with slight increase in size, consistent with worsening metastatic disease and stable intrahepatic biliary dilatation caused by mass effect of the liver mass. Patient having trouble remembering to take her capecitabine which was felt to contribute to her worsening findings. She is followed by Dr. Crawford as an outpatient and is currently on oral capecitabine. Will need to follow up with Oncology after discharge. (4) Hypertension: Qualifiers: Hypertension type: essential hypertension Qualified Code(s): I10 - Essential (primary) hypertension Code(s): I10 - Essential (primary) hypertension Status: Chronic Assessment and Plan: Blood pressure reviewed on 12/30/2019. Blood pressure well controlled. Patient was not on medications prior to her last hospitalization but metoprolol was added. Metoprolol was chosen because patient was also having episodes of sinus tachycardia but not felt to have AFib. Will continue metoprolol for now. (5) Confusion: Code(s): R41.0 - Disorientation, unspecified Status: Acute Assessment and Plan: The patient's confusion is more of a chronic issue. It was noted last hospitalization. The family at that time stated the patient had being forgetting her medications due to the confusion. Head CT on December 07 showed no acute changes. She appears to be at her baseline. (6) Depression: Qualifiers: Depression Type: major depressive disorder Major depression recurrence: unspecified whether recurrent Active/Remission status: currently active Major depression episode severity: unspecified Qualified Code(s): F32.9 - Major depressive disorder, single episode, unspecified Code(s): F32.9 - Major depressive disorder, single episode, unspecified Status: Chronic Assessment and Plan: Patient carries a diagnosis of depression on her past medical history but is not on medications for this. Continue to monitor. (7) DVT prophylaxis: Code(s): Z29.9 - Encounter for prophylactic measures, unspecified Status: Acute Assessment and Plan: Charo Subjective Date/time see
[2019-12-30 20:22] VITALS: PULSE 70
[2019-12-30 22:00] VITALS: BP 133/62; PULSE 84; RESP 16; TEMP 36.9; O2SAT 96
[2019-12-31] VITALS (7 sets, daily range): BP systolic 136–156; BP diastolic 56–79; PULSE 79–86; RESP 16–17; TEMP 36.1–36.7; O2SAT 95–98
--- NOTE | 2019-12-31 09:40 | PCPTNOTE ---
Attempted to see patient for PT evaluation. Pt denies stating she isn't feeling well. Pt agrees to attempt therapy again after lunch.
[2019-12-31] MEDS: PANTOPRAZOLE 40 MG TABLET BY MOUTH (10:17)
[2019-12-31] MEDS: ENOXAPARIN 40 MG/0.4 ML SYRINGE SUB-Q (10:17)
[2019-12-31] MEDS: METOPROLOL TARTRATE 12.5 MG TABLET PO ×2 (10:18→22:42)
--- NOTE | 2019-12-31 11:17 | PM.CNGS ---
Assessment and Plan Assessment and plan (1) Abscess of liver: Code(s): K75.0 - Abscess of liver Status: Acute Assessment and Plan: CT scan reviewed and discussed with the patient. She has known metastatic colon cancer with a large liver mass measuring now 7.[address] and now a separate cystic liver lesion concerning for a hepatic abscess. We would continue the IV antibiotics. Infectious disease has been consulted and recommendations appreciated. I did discuss the case with the Hospitalist today as well. She would not be a surgical candidate with the known metastatic colon cancer. The newly found liver lesion appears to be amenable for percutaneous drainage. We would recommend attempting percutaneous drainage of this suspected hepatic abscess and if possible have a drain placed to monitor the output. If this appears to be more of a cystic lesion, then this may not be possible. Will order for cultures to be sent during the drainage. We will continue to manage the percutaneous drain if able to be placed. I will speak with Radiology today regarding timing of percutaneous drainage. I discussed the current treatment plan with the patient. (2) Colon cancer metastasized to liver: Code(s): C18.9 - Malignant neoplasm of colon, unspecified; C78.7 - Secondary malignant neoplasm of liver and intrahepatic bile duct Status: Acute (3) C. perfringens infection: Code(s): B96.7 - Clostridium perfringens [C. perfringens] as the cause of diseases classified elsewhere Status: Acute Assessment and Plan: Recent septicemia in November 2019 that she has completed treatment for with IV Unasyn and oral Augmentin. Thought to be a GI or hepatic source. Current blood cultures NGTD. Infectious disease consulted. (4) Hypertension: Qualifiers: Hypertension type: essential hypertension Qualified Code(s): I10 - Essential (primary) hypertension Code(s): I10 - Essential (primary) hypertension Status: Chronic Additional Plan I discussed the patient's case and plan of care with Dr. Espitia today. History of Present Illness Consult details Consult date: 12/31/19 Reason for consult: abdominal pain Requesting physician: Roland Maloney MD Narrative: This is an 79-year-old female with a history of colon cancer with metastasis to the liver first diagnosed in October of 2016. She underwent a right hemicolectomy and has been under the care of Dr. Crawford. She was found to have a metastatic liver mass. She did undergo chemotherapy treatment starting sometime in 2018 and has most recently been on oral capecitabine therapy. She had a CT scan of the abdomen and pelvis in both April of 2019 and October of 2019, which showed slight interval increase in size of the left hepatic lobe mass, consistent with worsening metastatic disease. The patient was then admitted to [facility] status post a fall on 12/08/19 and was found to have Klebsiella pneumonia UTI and also septicemia with blood culture growth of Clostridium perfringens. Infectious disease was consulted and she was treated with IV antibiotics and discharged on 12/14/19 to a rehab facility on oral Augmentin for 9 days. The septicemia was thought to be due to a colon or hepatic source, possibly from a necrotic liver tumor. The patient then returned back to the emergency department on 12/28/19 from [place] with complaints of generalized abdominal pain. The patient reports having memory loss issues and states that she cannot remember why she came to the hospital when asked. I obtained her history primarily from her electronic medical record due to the patient answering I cannot remember or I don't know to nearly all of my questions. CT scan of the abdomen and pelvis was performed on this admission and showed a new 2.8 x 2.3 x 3.5 cm cystic lesion of the liver with subtle haziness to the anterior overlying perihepatic fat, suspicious for hepatic abscess. No signi
--- NOTE | 2019-12-31 11:55 | P.PNINF_ITS ---
Progress Note: A&P Assessment and Plan (1) Abscess of liver: Code(s): K75.0 - Abscess of liver Status: Acute Assessment and Plan: 1. Liver abscess/necrotic tumor 2. Metastatic colon cancer 3. Dementia 4. Rec ent C perfringens infection with bacteremia, due to #1 REC PipTazo #3, anticipate 10 days more IV. For attempted perc. drain today. Subjective Date/time seen: 12/31/19 11:55 Objective Data Vital Signs Vital Signs: Vital Signs - 24 hr 12/30/19 14:00 12/30/19 20:22 12/30/19 22:00 Temperature 36.5 C 36.9 C Pulse Rate 83 70 84 Respiratory Rate 16 16 Blood Pressure 128/55 L 133/62 Pulse Oximetry 96 96 12/31/19 06:00 12/31/19 10:18 Temperature 36.3 C L Pulse Rate 86 85 Respiratory Rate 16 Blood Pressure 136/56 L Pulse Oximetry 95 Intake/Output Intake/Output: Intake & Output 12/28/19 12/29/19 12/30/19 12/31/19 23:59 23:59 23:59 23:59 Intake Total 1000 3010 1430 660 Output Total 550 600 700 Balance 1000 2460 830 -40 Meds/Results Medications: Active Medications Generic Name Dose Route Start Last Admin Trade Name Freq PRN Reason Stop Dose Admin Acetaminophen 500 mg 12/29/19 15:17 Tylenol Tablet PO Q6H PRN Pain Rated 5 or Less Hydrocodone Bitart/Acetaminophen 1 tab 12/29/19 15:17 12/31/19 05:05 Emerson 5-325 Mg PO 1 tab Q6H PRN Administration Pain Rated 6 or Greater Enoxaparin Sodium 40 mg 12/29/19 15:15 12/31/19 10:17 Lovenox SUB-Q 40 mg DAILY NI Administration Piperacillin/Tazobactam/Dextrose 3.375 gm in 50 mls @ 100 mls/hr 12/29/19 05:00 12/31/19 05:06 Zosyn 3.375 Gm/D5w 50ml Pm IVPB 100 mls/hr Q6HR NI Administration Metoprolol Tartrate 12.5 mg 12/29/19 21:00 12/31/19 10:18 Lopressor PO 12.5 mg Q12HR NI Administration Ondansetron HCl 4 mg 12/28/19 22:31 Zofran Inj IV PUSH Q4H PRN Nausea Pantoprazole Sodium 40 mg 12/30/19 09:00 12/31/19 10:17 Protonix BY MOUTH 01/29/20 09:01 40 mg DAILY NI Administration Radiology Results: ITS Impressions Abdomen/Pelvis CT 12/28/19 21:03 IMPRESSION: 1. Subtle haziness to the anterior perihepatic fat overlying a new 2.8 x 2.3 x 3.5 cm cystic lesion in segment 2 of liver suspicious for hepatic abscess. 2. No significant interval change in a 7.1 cm mass centered at the junction of segments 4A and 4B of the liver consistent with given history of metastatic colon cancer. 3. No significant change in secondary intrahepatic biliary ductal dilation most prominent in the left hepatic lobe. 4. Nonspecific small subpleural nodules at the posterior margin of the right lower lobe which could represent additional metastatic disease. 5. Right hemicolectomy with ileocolic anastomosis likely for reported colon cancer. 6. Severe sigmoid diverticulosis. Abdomen X-Ray 12/28/19 21:21 IMPRESSION: 1. No dilated gas-filled bowel to suggest obstruction. Chest X-Ray 12/28/19 21:22 IMPRESSION: 1. Cardiomegaly. No acute cardiopulmonary disease.
--- NOTE | 2019-12-31 13:08 | PM.IMPN ---
Progress Note: A&P Assessment and Plan (1) Abscess of liver: Code(s): K75.0 - Abscess of liver Status: Acute Assessment and Plan: Patient admitted for complaints of abdominal pain with CT scan showing subtle haziness to the anterior perihepatic fat overlying a new 2.8 x 2.3 x 3.5 cm cystic lesion in segment 2 of liver suspicious for hepatic abscess. [place] [address] on admission but has since normalized. Zosyn and Flagyl started but abx narrowed to Zosyn. BCx NGTD. Radiology felt the lesion could be drained percutaneously - General surgery consulted for drain management. Discussed with Dr Muse. He recommended 10 days of IV abx starting once abscess drained. Couldn't get it drained today but planned for tomorrow. Continue Zosyn. Continue PT/OT. Patient has Port so I have asked Care Coordination to see if the Port can be used to give the abx through at the [place]. (2) C. perfringens infection: Code(s): B96.7 - Clostridium perfringens [C. perfringens] as the cause of diseases classified elsewhere Status: Acute Assessment and Plan: Blood cultures x2 positive for Clostridium perfringens last admission treated with Unasyn and discharge home on Augmentin. It was felt the infection was related to her colon cancer. It appears she completed a course of her antibiotics although they were adjusted after discharge. Blood culture here negative to date. MRSA nasal swab also negative. (3) Colon cancer metastasized to liver: Code(s): C18.9 - Malignant neoplasm of colon, unspecified; C78.7 - Secondary malignant neoplasm of liver and intrahepatic bile duct Status: Acute Assessment and Plan: Patient with known metastatic colon cancer originally diagnosed in October 2016. She underwent right hemicolectomy in November 2016 and was noted to have a liver mass of 6cm in October 2017. Port-A-Cath placed in January [address] scan in October 2019 showing a left hepatic lobe mass with slight increase in size, consistent with worsening metastatic disease and stable intrahepatic biliary dilatation caused by mass effect of the liver mass. Patient having trouble remembering to take her capecitabine which was felt to contribute to her worsening findings. She is followed by Dr. Crawford as an outpatient and is currently on oral capecitabine. Will need to follow up with Oncology after discharge. (4) Hypertension: Qualifiers: Hypertension type: essential hypertension Qualified Code(s): I10 - Essential (primary) hypertension Code(s): I10 - Essential (primary) hypertension Status: Chronic Assessment and Plan: Blood pressure reviewed on 12/31/2019. Blood pressure well controlled. Patient was not on medications prior to her last hospitalization but metoprolol was added. Metoprolol was chosen because patient was also having episodes of sinus tachycardia but not felt to have AFib. Will continue metoprolol for now. (5) Confusion: Code(s): R41.0 - Disorientation, unspecified Status: Acute Assessment and Plan: The patient's confusion is more of a chronic issue. It was noted last hospitalization. The family at that time stated the patient had being forgetting her medications due to the confusion. Head CT on December 07 showed no acute changes. She appears to be at her baseline. (6) Depression: Qualifiers: Active/Remission status: currently active Depression Type: major depressive disorder Major depression episode severity: unspecified Major depression recurrence: unspecified whether recurrent Qualified Code(s): F32.9 - Major depressive disorder, single episode, unspecified Code(s): F32.9 - Major depressive disorder, single episode, unspecified Status: Chronic Assessment and Plan: Patient carries a diagnosis of depression on her past medical history but is not on medications for this. Krysten
--- NOTE | 2019-12-31 13:30 | PCOTNOTE ---
Attempted to see patient for skilled OT, however, patient complained of a headache and declined to participate in any functional ADL task or transfer, as well as exercise to maintain BUE strength. RN notified of patient's headache. Patient not seen for skilled OT this date.
--- NOTE | 2019-12-31 14:46 | CONS_ITS ---
DATE OF CONSULTATION: 12/31/2019 REASON FOR CONSULTATION: Liver abscess. HISTORY OF PRESENT ILLNESS: The patient is an 79-year-old female who is a poor historian. She was here in the hospital in November with Clostridium perfringens bacteremia due to liver tumor. She received IV therapy while here and was discharged on oral antibiotics, which she apparently received for several days past the anticipated stop date, but did complete several days before admission. She was [facility] from her [facility] here on December 28 with abdominal pain described as bilateral lower quadrants. Abdominal tenderness was also noted by the nurses though the patient does not recall any of the details. She had no nausea, vomiting, and no fever, chills, or sweats at her [facility]. Here she was found to have recurrent leukocytosis. She was given metronidazole, is now on piperacillin monotherapy, day #3. Consultation requested. The patient does have bilateral lower quadrant pain whenever she moves her torso or moves from bed to chair. Otherwise, no abdominal pain. She denies diarrhea, shortness of breath, skin rash or ulcerations. ALLERGIES: NONE KNOWN. PRESENT MEDICATIONS: Home medication list reviewed. Hydrocodone was unsuccessful in relieving her pain at the [facility]. HABITS: No tobacco. No alcohol. PAST MEDICAL AND SURGICAL HISTORY: Colon cancer, metastatic to the liver, on chemotherapy. Also tonsillectomy, lithotripsy, colon resection, cholecystectomy, appendectomy, cataracts, RLS, [place], kidney stones, hypertension, GERD, depression, COPD. REVIEW OF SYSTEMS: 14-point review limited by the patient's memory. Otherwise, currently negative except as above. FAMILY HISTORY: Not pertinent to her present illness. SOCIAL HISTORY: No family at the bedside. She is a [facility] resident. PHYSICAL EXAMINATION: GENERAL: This is an elderly female who appears her actual age. No acute distress. VITAL SIGNS: Afebrile since arrival,136/56, 86, 16, 95% on room air. SKIN: Warm and dry. No generalized rashes. EENT: The conjunctivae are normal. Pupils equal, round. The oral mucosa is also normal. NECK: No masses or thyromegaly. She has no cervical adenopathy. LUNGS: Clear to auscultation and percussion. CARDIAC: Regular rate and rhythm. No murmurs or gallops. ABDOMEN: Soft, tender in the right upper quadrant without guarding. No palpable masses. Lower abdomen has no tenderness. EXTREMITIES: 1+ edema, not pitting at the ankles. No clubbing. No cyanosis. LABORATORY DATA: White count 12.9 on arrival, was 8.2 yesterday; hemoglobin 11.7, which is down; platelets are 204. She has an elevated MCV at 105. RDW is also elevated at 16.0. Her differential is unremarkable. Chemistry panel today is normal. On admission, her alkaline phosphatase was 262. Her liver function tests otherwise normal. Urinalysis, 1+ blood, otherwise normal. Blood cultures, no growth after 3 days incubation. MRSA screen negative. RADIOLOGY: Abdomen and pelvic CT compared to 11/15 showed subpleural nodules with linear extension, atherosclerosis, central venous catheter, reflux fluid, hypoenhancing 8 cm mass, intrahepatic biliary duct dilation. New mass, 4 cm. Cholecystectomy clips. Right adrenal mass. The previously suggested benign etiology. Renal cyst, diverticulosis, postoperative hemicolectomy changes. Non-identified uterus. Spondylosis. ASSESSMENT: 1. Abdominal pain and tenderness due to liver tumor and coexistent liver abscess. I think the abscess is due to her metastatic cancer, not due to other etiologies such as biliary obstruction, amoebic liver abscess or liver abscess from enterohepatic circulation. 2. Metastatic colon cancer. 3. Gastroesophageal reflux disease. 4.
[2020-01-01 05:37] LABS: Hematocrit 37.8 % (37.0-47.0); Hemoglobin 11.9 g/dL (12.0-15.0); Mean Corpuscular HGB Conc 31.5 g/dl (32-36); Mean Corpuscular Hemoglobin 32.8 pg (26-34); Mean Corpuscular Volume 104.1 fl (80-100); Mean Platelet Volume 10.9 fl (7.4-10.4); Platelet Count Result 208 k/mm3 (150-375); Red Blood Count 3.63 M/mm3 (4.2-5.4); Red Cell Distribution Width 16.5 % (11.5-14.5); White Blood Count 7.8 K/mm3 (4.5-10.0)
[2020-01-01 05:47] LABS: Prothrombin Time 12.8 Seconds (11.1-14.7)
[2020-01-01 05:56] LABS: Blood Urea Nitrogen 10 mg/dL (7-17); CRP 2.4 mg/dL (<1.0); Calcium 9.2 mg/dL (8.4-10.2); Carbon Dioxide 28 mmol/L (22-30); Chloride 100 mmol/L (98-107); Estimated CRCL calculation 64 ml/min; Estimated Glomerular Filt Rate > 60; Glucose 87 mg/dL (65-105); Potassium 3.8 mmol/L (3.4-5.0); Sodium 139 mmol/L (137-145)
[2020-01-01 06:00] VITALS: BP 146/73; PULSE 75; RESP 14; TEMP 36.3; O2SAT 98
--- NOTE | 2020-01-01 09:48 | PM.PNGS ---
Progress Note: A&P Assessment and Plan (1) Abscess of liver: Code(s): K75.0 - Abscess of liver Status: Acute Assessment and Plan: Plan for percutaneous drainage of liver lesion, suspected liver abscess, today in Radiology. Will await findings during drainage and culture results. Continue IV antibiotics per ID recommendations. (2) Colon cancer metastasized to liver: Code(s): C18.9 - Malignant neoplasm of colon, unspecified; C78.7 - Secondary malignant neoplasm of liver and intrahepatic bile duct Status: Acute (3) C. perfringens infection: Code(s): B96.7 - Clostridium perfringens [C. perfringens] as the cause of diseases classified elsewhere Status: Acute Assessment and Plan: Recent septicemia in November 2019 that she has completed treatment for with IV Unasyn and oral Augmentin. Thought to be a GI or hepatic source. Current blood cultures NGTD. Infectious disease following. (4) Hypertension: Qualifiers: Hypertension type: essential hypertension Qualified Code(s): I10 - Essential (primary) hypertension Code(s): I10 - Essential (primary) hypertension Status: Chronic Additional Plan I discussed the patient's case and plan of care with Dr. Espitia today. Subjective Subjective Date/Time Seen: 01/01/20 09:20 Patient reports: no new complaints Interval history: Patient seen and examined. Denies any pain at this time. No new complaints today. States she is uncomfortable when she gets up to move around due to some generalized abdominal discomfort, but otherwise none at rest. Review of Systems Review of Systems: All systems reviewed & are unremarkable except as noted in HPI and below Exam Const: General: no acute distress, alert and awake GI: Inspection: normal to inspection and other (rounded protuberant abdomen) GI Palp: Yes Soft to palpation, Yes Tenderness to palpation present (GI) (diffusely tender, no focal tenderness), No Guarding due to palpation present (GI) and No Rebound tenderness present Auscultation: normal bowel sounds Rectal Exam: deferred Psych: Mental Status: mental status grossly normal Affect: Irritable affect present Objective Data Vital Signs Vital Signs: Vital Signs - 24 hr 12/31/19 10:17 12/31/19 10:18 12/31/19 14:13 Temperature 36.7 C Pulse Rate 85 85 79 Respiratory Rate 16 Blood Pressure 137/61 139/57 L Pulse Oximetry 95 98 12/31/19 20:35 12/31/19 22:42 12/31/19 22:44 Temperature 36.1 C L Pulse Rate 81 81 81 Respiratory Rate 17 17 Blood Pressure 156/79 H Pulse Oximetry 95 95 01/01/20 06:00 Temperature 36.3 C L Pulse Rate 75 Respiratory Rate 14 Blood Pressure 146/73 H Pulse Oximetry 98 Intake/Output Intake/Output: Intake & Output 12/29/19 12/30/19 12/31/19 01/01/20 23:59 23:59 23:59 23:59 Intake Total 3010 1430 1850 100 Output Total 161 746 5686 1200 Balance 2460 830 650 -1100 Meds/Results Medications: Active Medications Generic Name Dose Route Start Last Admin Trade Name Freq PRN Reason Stop Dose Admin Acetaminophen 500 mg 12/29/19 15:17 Tylenol Tablet PO Q6H PRN Pain Rated 5 or Less Hydrocodone Bitart/Acetaminophen 1 tab 12/29/19 15:17 12/31/19 22:42 [place] 5-325 Mg PO 1 tab Q6H PRN Administration Pain Rated 6 or Greater Enoxaparin Sodium 40 mg 12/29/19 15:15 01/01/20 09:37 Lovenox SUB-Q Not Given DAILY [facility] Piperacillin/Tazobactam/Dextrose 3.375 gm in 50 mls @ 100 mls/hr 12/29/19 05:00 01/01/20 09:15 Zosyn 3.375 Gm/D5w 50ml Pm IVPB Infused Q6HR [facility] Infusion Metoprolol Tartrate 12.5 mg 12/29/19 21:00 01/01/20 09:37 Lopressor PO Not Given Q12HR NI Ondansetron HCl 4 mg 12/28/19 22:31 Zofran Inj IV PUSH Q4H PRN Nausea Pantoprazole Sodium 40 mg 12/30/19 09:00 12/31/19 10:17 Protonix BY MOUTH 01/29/20 09:01 40 mg DAILY NI Administration Radiology Results: ITS Impress
--- NOTE | 2020-01-01 13:13 | WPDINFPN2 ---
Progress Note: A&P Assessment and Plan (1) Abscess of liver: Code(s): K75.0 - Abscess of liver Status: Acute Assessment and Plan: 1. Liver abscess/necrotic tumor. Ultrasound noted, not amenable to safe percutaneous drainage 2. Metastatic colon cancer 3. Dementia 4. Recent C perfringens infection with bacteremia, due to #1 REC PipTazo #4 / 14 days, continue. Radiographic or US followup over time. Ok discharge planning. Subjective Date/time seen: 01/01/20 13:13 Interval history: pain about the same. Thirsty. Exam Narrative: Exam Narrative: afebrile Const: General: no acute distress Eyes: General: appearance normal, both eyes and all related structures Resp: Effort & Inspection: normal respiratory effort Auscultation: clear to auscultation bilaterally Cardio: Rate: regular rate Rhythm: regular rhythm Heart sounds: no gallops and no murmurs GI: Inspection: non-distended GI Palp: Yes Soft to palpation, Yes Tenderness to palpation present (GI) and No Guarding due to palpation present (GI) Auscultation: normal bowel sounds Skin: General skin exam: normal color and no rashes or lesions noted Objective Data Vital Signs Vital Signs: Vital Signs - 24 hr 12/31/19 14:13 12/31/19 20:35 12/31/19 22:42 Temperature 36.7 C 36.1 C L Pulse Rate 79 81 81 Respiratory Rate 16 17 Blood Pressure 139/57 L 156/79 H Pulse Oximetry 98 95 12/31/19 22:44 01/01/20 06:00 Temperature 36.3 C L Pulse Rate 81 75 Respiratory Rate 17 14 Blood Pressure 146/73 H Pulse Oximetry 95 98 Intake/Output Intake/Output: Intake & Output 12/29/19 12/30/19 12/31/19 01/01/20 23:59 23:59 23:59 23:59 Intake Total 3010 1430 1850 100 Output Total 078 732 7922 1400 Balance 2460 830 650 -1300 Meds/Results Medications: Active Medications Generic Name Dose Route Start Last Admin Trade Name Freq PRN Reason Stop Dose Admin Acetaminophen 500 mg 12/29/19 15:17 Tylenol Tablet PO Q6H PRN Pain Rated 5 or Less Hydrocodone Bitart/Acetaminophen 1 tab 12/29/19 15:17 12/31/19 22:42 [place] 5-325 Mg PO 1 tab Q6H PRN Administration Pain Rated 6 or Greater Enoxaparin Sodium 40 mg 12/29/19 15:15 01/01/20 09:37 Lovenox SUB-Q Not Given DAILY [facility] Piperacillin/Tazobactam/Dextrose 3.375 gm in 50 mls @ 100 mls/hr 12/29/19 05:00 01/01/20 09:15 Zosyn 3.375 Gm/D5w 50ml Pm IVPB Infused Q6HR NI Infusion Metoprolol Tartrate 12.5 mg 12/29/19 21:00 01/01/20 09:37 Lopressor PO Not Given Q12HR NI Ondansetron HCl 4 mg 12/28/19 22:31 Zofran Inj IV PUSH Q4H PRN Nausea Pantoprazole Sodium 40 mg 12/30/19 09:00 12/31/19 10:17 Protonix BY MOUTH 01/29/20 09:01 40 mg DAILY NI Administration Radiology Results: ITS Impressions Abdomen/Pelvis CT 12/28/19 21:03 IMPRESSION: 1. Subtle haziness to the anterior perihepatic fat overlying a new 2.8 x 2.3 x 3.5 cm cystic lesion in segment 2 of liver suspicious for hepatic abscess. 2. No significant interval change in a 7.1 cm mass centered at the junction of segments 4A and 4B of the liver consistent with given history of metastatic colon cancer. 3. No significant change in secondary intrahepatic biliary ductal dilation most prominent in the left hepatic lobe. 4. Nonspecific small subpleural nodules at the posterior margin of the right lower lobe which could represent additional metastatic disease. 5. Right hemicolectomy with ileocolic anastomosis likely for reported colon cancer. 6. Severe sigmoid diverticulosis. Abdomen X-Ray 12/28/19 21:21 IMPRESSION: 1. No dilated gas-filled bowel to suggest obstruction. Chest X-Ray 12/28/19 21:22 IMPRESSION: 1. Cardiomegaly. No acute cardiopulmonary disease. Abdomen Ultrasound 01/01/20 12:39 IMPRESSION: 1. 0.0 x 1.1 cm hypoechoic lesion in segment 2 of the liver corresponding to the lesion on prior CT. Given the small size of the lesion and the in
[2020-01-01 14:00] VITALS: BP 157/77; PULSE 84; RESP 16; TEMP 36.6; O2SAT 96
--- NOTE | 2020-01-01 14:32 | PC.NURSE ---
Quentin late, patient was off floor to receive perc drain.
[2020-01-01] MEDS: PANTOPRAZOLE 40 MG TABLET BY MOUTH (14:34)
--- NOTE | 2020-01-01 15:04 | PM.IMPN ---
Progress Note: A&P Assessment and Plan (1) Abscess of liver: Code(s): K75.0 - Abscess of liver Status: Acute Assessment and Plan: CT scan with subtle haziness to the anterior perihepatic fat overlying a new 2.8 x 2.3 x 3.5 cm cystic lesion in segment 2 of liver suspicious for hepatic abscess. Attempted drainage today unsuccessful as amount to small. Appreciate help from Infectious Disease and General surgery. General surgery has now signed off. WBC normal at 7.8 today. Currently on IV Zosyn alone per ID, Day #4. Continue PT/OT. Care coordination working on placement. Anticipate being able to discharge once placement is secured. (2) C. perfringens infection: Code(s): B96.7 - Clostridium perfringens [C. perfringens] as the cause of diseases classified elsewhere Status: Acute Assessment and Plan: Blood cultures x2 positive for Clostridium perfringens last admission treated with Unasyn and discharge home on Augmentin. It was felt the infection was related to her colon cancer. She completed a course of her antibiotics although they were adjusted after discharge. Now on IV Zosyn for other issues as noted above. (3) Colon cancer metastasized to liver: Code(s): C18.9 - Malignant neoplasm of colon, unspecified; C78.7 - Secondary malignant neoplasm of liver and intrahepatic bile duct Status: Acute Assessment and Plan: Patient with known metastatic colon cancer originally diagnosed in October 2016. She underwent right hemicolectomy in November 2016 and was noted to have a liver mass of 6cm in October 2017. Port-A-Cath placed in January [address] scan in October 2019 showing a left hepatic lobe mass of with slight increase in size, consistent with worsening metastatic disease and stable intrahepatic biliary dilatation caused by mass effect of the liver mass. Patient having trouble remembering to take her medications which was felt to contribute to her worsening findings. She is followed by Dr. Crawford as an outpatient and is currently on oral capecitabine. Plan for follow-up with Oncology after discharge. (4) Hypertension: Qualifiers: Hypertension type: essential hypertension Qualified Code(s): I10 - Essential (primary) hypertension Code(s): I10 - Essential (primary) hypertension Status: Chronic Assessment and Plan: Blood pressure reviewed on 01/01/2020. Blood pressure remains well controlled. Will continue to monitor on metoprolol. (5) Confusion: Code(s): R41.0 - Disorientation, unspecified Status: Acute Assessment and Plan: CT brain on 12/07/2019 with no acute changes. Known intermittent issues with confusion prior to this admission. Will monitor. (6) Depression: Qualifiers: Depression Type: major depressive disorder Major depression recurrence: unspecified whether recurrent Active/Remission status: currently active Major depression episode severity: unspecified Qualified Code(s): F32.9 - Major depressive disorder, single episode, unspecified Code(s): F32.9 - Major depressive disorder, single episode, unspecified Status: Chronic Assessment and Plan: Patient carries a diagnosis of depression on her past medical history but is not on medications. Continue to monitor. (7) DVT prophylaxis: Code(s): Z29.9 - Encounter for prophylactic measures, unspecified Status: Acute Assessment and Plan: Lovenox. Time Spent With Patient Time with patient: 15 - 25 minutes Subjective Date/time seen: 01/01/20 15:04 Interval history: Date of Service: 01/01/2020. Admitted with abdominal pain and found to have liver abscess. Known metastatic colon cancer. Attempted drainage of abscess earlier today but no significant amount available for drainage. Patient ready to eat lunch. Generally does not feel well. Week. Lower rib pain. No headache. No chest p
[2020-01-01 19:56] VITALS: BP 149/79; PULSE 93; RESP 16; TEMP 36.2; O2SAT 94
[2020-01-01 20:00] VITALS: PULSE 93; RESP 16; O2SAT 94
[2020-01-01 20:10] VITALS: PULSE 93
[2020-01-01] MEDS: METOPROLOL TARTRATE 12.5 MG TABLET PO (20:10)
[2020-01-02 05:42] VITALS: BP 153/77; PULSE 76; RESP 16; TEMP 36.1; O2SAT 96
[2020-01-02 09:04] VITALS: PULSE 88
[2020-01-02] MEDS: PANTOPRAZOLE 40 MG TABLET BY MOUTH (09:04)
[2020-01-02] MEDS: ENOXAPARIN 40 MG/0.4 ML SYRINGE SUB-Q (09:04)
[2020-01-02] MEDS: METOPROLOL TARTRATE 12.5 MG TABLET PO ×2 (09:04→21:39)
--- NOTE | 2020-01-02 12:03 | WPDINFPN2 ---
Progress Note: A&P Assessment and Plan (1) Abscess of liver: Code(s): K75.0 - Abscess of liver Status: Acute Assessment and Plan: 1. Liver abscess/necrotic tumor, not amenable to safe percutaneous drainage 2. Metastatic colon cancer 3. Dementia 4. Recent C perfringens infection with bacteremia, due to #1, microbiologic cure 5. Abdominal pain due to # 1 and #2 REC PipTazo #5 / 14 days, continue. Radiographic or US followup over time. Ok discharge planning. On analgesics. Subjective Date/time seen: 01/02/20 12:03 Interval history: pain about the same. She feels that she is making no progress Exam Narrative: Exam Narrative: afebrile Const: General: no acute distress Eyes: General: appearance normal, both eyes and all related structures Resp: Effort & Inspection: normal respiratory effort Auscultation: clear to auscultation bilaterally Cardio: Rate: regular rate Rhythm: regular rhythm Heart sounds: no gallops and no murmurs GI: Inspection: non-distended GI Palp: Yes Soft to palpation, Yes Tenderness to palpation present (GI) and No Guarding due to palpation present (GI) Skin: General skin exam: normal color and no rashes or lesions noted Objective Data Vital Signs Vital Signs: Vital Signs - 24 hr 01/01/20 14:00 01/01/20 19:56 01/01/20 20:00 Temperature 36.6 C 36.2 C L Pulse Rate 84 93 93 Respiratory Rate 16 16 16 Blood Pressure 157/77 H 149/79 H Pulse Oximetry 96 94 94 01/01/20 20:10 01/02/20 05:42 01/02/20 09:04 Temperature 36.1 C L Pulse Rate 93 76 88 Respiratory Rate 16 Blood Pressure 153/77 H Pulse Oximetry 96 Intake/Output Intake/Output: Intake & Output 12/30/19 12/31/19 01/01/20 01/02/20 23:59 23:59 23:59 23:59 Intake Total 1430 1850 1040 740 Output Total 600 1200 2300 1250 Balance 585 568 -4162 -349 Meds/Results Medications: Active Medications Generic Name Dose Route Start Last Admin Trade Name Freq PRN Reason Stop Dose Admin Acetaminophen 500 mg 12/29/19 15:17 Tylenol Tablet PO Q6H PRN Pain Rated 5 or Less Hydrocodone Bitart/Acetaminophen 1 tab 12/29/19 15:17 01/02/20 11:42 [place] 5-325 Mg PO 1 tab Q6H PRN Administration Pain Rated 6 or Greater Enoxaparin Sodium 40 mg 12/29/19 15:15 01/02/20 09:04 Lovenox SUB-Q 40 mg DAILY NI Administration Piperacillin/Tazobactam/Dextrose 3.375 gm in 50 mls @ 100 mls/hr 12/29/19 05:00 01/02/20 11:43 Zosyn 3.375 Gm/D5w 50ml Pm IVPB Infused Q6HR NI Infusion Metoprolol Tartrate 12.5 mg 12/29/19 21:00 01/02/20 09:04 Lopressor PO 12.5 mg Q12HR NI Administration Ondansetron HCl 4 mg 12/28/19 22:31 Zofran Inj IV PUSH Q4H PRN Nausea Pantoprazole Sodium 40 mg 12/30/19 09:00 01/02/20 09:04 Protonix BY MOUTH 01/29/20 09:01 40 mg DAILY NI Administration Sodium Chloride 1 spray 01/01/20 15:20 [place] Nasal [place] NASAL Q6HR PRN Congestion Radiology Results: ITS Impressions Abdomen/Pelvis CT 12/28/19 21:03 IMPRESSION: 1. Subtle haziness to the anterior perihepatic fat overlying a new 2.8 x 2.3 x 3.5 cm cystic lesion in segment 2 of liver suspicious for hepatic abscess. 2. No significant interval change in a 7.1 cm mass centered at the junction of segments 4A and 4B of the liver consistent with given history of metastatic colon cancer. 3. No significant change in secondary intrahepatic biliary ductal dilation most prominent in the left hepatic lobe. 4. Nonspecific small subpleural nodules at the posterior margin of the right lower lobe which could represent additional metastatic disease. 5. Right hemicolectomy with ileocolic anastomosis likely for reported colon cancer. 6. Severe sigmoid diverticulosis. Abdomen X-Ray 12/28/19 21:21 IMPRESSION: 1. No dilated gas-filled bowel to suggest obstruction. Chest X-Ray 12/28/19 21:22 IMPRESSION: 1. Cardiomegaly. No acute cardiopulmonary disease.
[2020-01-02 14:00] VITALS: BP 111/67; PULSE 75; RESP 18; TEMP 36.8; O2SAT 96
--- NOTE | 2020-01-02 14:04 | PCOTNOTE ---
Attempted to see patient this pm, however patient refused. I don't feel like it. Pt stated, All I do is rest, but I don't know what else to do. I don't want to do anything. Encouraged patient to participate in activity within her tolerance, however patient refused all activity stating, I don't want to. I just feel bad.
--- NOTE | 2020-01-02 14:22 | PM.IMPN ---
Progress Note: A&P Assessment and Plan (1) Abscess of liver: Code(s): K75.0 - Abscess of liver Status: Acute Assessment and Plan: CT scan with subtle haziness to the anterior perihepatic fat overlying a new 2.8 x 2.3 x 3.5 cm cystic lesion in segment 2 of liver suspicious for hepatic abscess. Attempted drainage on 01/01/2020 unsuccessful as amount to0 small. Appreciate help from Infectious Disease and General surgery. General surgery has now signed off. WBC normal at 7.8 today. Currently on IV Zosyn alone per ID, Day #4514. Continue PT/OT. Arrangements have been made for patient to go to [place] with IV antibiotics. Plan for discharge tomorrow. (2) C. perfringens infection: Code(s): B96.7 - Clostridium perfringens [C. perfringens] as the cause of diseases classified elsewhere Status: Acute Assessment and Plan: Blood cultures x2 positive for Clostridium perfringens last admission treated with Unasyn and discharge home on Augmentin. It was felt the infection was related to her colon cancer. She completed a course of her antibiotics although they were adjusted after discharge. Now on IV Zosyn for other issues as noted above. (3) Colon cancer metastasized to liver: Code(s): C18.9 - Malignant neoplasm of colon, unspecified; C78.7 - Secondary malignant neoplasm of liver and intrahepatic bile duct Status: Acute Assessment and Plan: Patient with known metastatic colon cancer originally diagnosed in October 2016. She underwent right hemicolectomy in November 2016 and was noted to have a liver mass of 6cm in October 2017. Port-A-Cath placed in January [address] scan in October 2019 showing a left hepatic lobe mass of with slight increase in size, consistent with worsening metastatic disease and stable intrahepatic biliary dilatation caused by mass effect of the liver mass. Patient having trouble remembering to take her medications which was felt to contribute to her worsening findings. She is followed by Dr. Crawford as an outpatient and is currently on oral capecitabine. Will need to follow-up with oncology as outpatient. (4) Hypertension: Qualifiers: Hypertension type: essential hypertension Qualified Code(s): I10 - Essential (primary) hypertension Code(s): I10 - Essential (primary) hypertension Status: Chronic Assessment and Plan: Blood pressure reviewed on 01/02/2020 with some fluctuation but acceptable. Will continue to monitor on metoprolol. Adjust treatment as needed. (5) Confusion: Code(s): R41.0 - Disorientation, unspecified Status: Acute Assessment and Plan: CT brain on 12/07/2019 with no acute changes. Known intermittent issues with confusion prior to this admission. No new issue. Will monitor. (6) Depression: Qualifiers: Active/Remission status: currently active Depression Type: major depressive disorder Major depression episode severity: unspecified Major depression recurrence: unspecified whether recurrent Qualified Code(s): F32.9 - Major depressive disorder, single episode, unspecified Code(s): F32.9 - Major depressive disorder, single episode, unspecified Status: Chronic Assessment and Plan: Patient carries a diagnosis of depression on her past medical history but is not on medication at this time. Continue to monitor. (7) DVT prophylaxis: Code(s): Z29.9 - Encounter for prophylactic measures, unspecified Status: Acute Assessment and Plan: Lovenox. Time Spent With Patient Time with patient: 15 - 25 minutes Subjective Date/time seen: 01/02/20 14:22 Interval history: Date of Service: 01/02/2020. Admitted with abdominal pain and found to have liver abscess. Known metastatic colon cancer. Sitting in chair. Still generally does not feel well and weak. No abdominal pain. No chest pain. No shortness of breath. Review of
[2020-01-02 21:39] VITALS: BP 148/80; PULSE 75; PULSE 77; RESP 15; TEMP 36.1; O2SAT 96
[2020-01-02 21:45] VITALS: PULSE 75; RESP 15; O2SAT 96
[2020-01-03 04:48] VITALS: BP 144/81; PULSE 88; RESP 16; TEMP 36.2; O2SAT 96
[2020-01-03 06:32] LABS: Hematocrit 37.8 % (37.0-47.0); Hemoglobin 11.9 g/dL (12.0-15.0); Mean Corpuscular HGB Conc 31.5 g/dl (32-36); Mean Corpuscular Hemoglobin 32.7 pg (26-34); Mean Corpuscular Volume 103.8 fl (80-100); Mean Platelet Volume 10.8 fl (7.4-10.4); Platelet Count Result 182 k/mm3 (150-375); Red Blood Count 3.64 M/mm3 (4.2-5.4); Red Cell Distribution Width 16.7 % (11.5-14.5)
[2020-01-03 06:43] LABS: Blood Urea Nitrogen 13 mg/dL (7-17); Carbon Dioxide 27 mmol/L (22-30); Chloride 101 mmol/L (98-107); Estimated CRCL calculation 64 ml/min; Estimated Glomerular Filt Rate > 60; Glucose 109 mg/dL (65-105); Potassium 3.8 mmol/L (3.4-5.0); Sodium 138 mmol/L (137-145)
[2020-01-03 08:29] VITALS: PULSE 84
[2020-01-03] MEDS: METOPROLOL TARTRATE 12.5 MG TABLET PO (08:29)
[2020-01-03] MEDS: PANTOPRAZOLE 40 MG TABLET BY MOUTH (08:29)
[2020-01-03] MEDS: ENOXAPARIN 40 MG/0.4 ML SYRINGE SUB-Q (08:30)
--- NOTE | 2020-01-03 08:58 | PM.IMPN ---
Progress Note: A&P Assessment and Plan (1) Abscess of liver: Code(s): K75.0 - Abscess of liver Status: Acute Assessment and Plan: CT scan with subtle haziness to the anterior perihepatic fat overlying a new 2.8 x 2.3 x 3.5 cm cystic lesion in segment 2 of liver suspicious for hepatic abscess. Attempted drainage on 01/01/2020 unsuccessful as amount to0 small. Appreciate help from Infectious Disease and General surgery. General surgery has now signed off. WBC normal at 8.0 today. Currently on IV Zosyn alone per ID, Day #6. Continue PT/OT. Arrangements have been made for patient to go to [place] with IV antibiotics. Port being axis now. Will discharge this morning. (2) C. perfringens infection: Code(s): B96.7 - Clostridium perfringens [C. perfringens] as the cause of diseases classified elsewhere Status: Acute Assessment and Plan: Blood cultures x2 positive for Clostridium perfringens last admission treated with Unasyn and discharge home on Augmentin. It was felt the infection was related to her colon cancer. She completed a course of her antibiotics although they were adjusted after discharge. Now on IV Zosyn for other issues as noted above. (3) Colon cancer metastasized to liver: Code(s): C18.9 - Malignant neoplasm of colon, unspecified; C78.7 - Secondary malignant neoplasm of liver and intrahepatic bile duct Status: Acute Assessment and Plan: Patient with known metastatic colon cancer originally diagnosed in October 2016. She underwent right hemicolectomy in November 2016 and was noted to have a liver mass of 6cm in October 2017. Port-A-Cath placed in January [address] scan in October 2019 showing a left hepatic lobe mass of with slight increase in size, consistent with worsening metastatic disease and stable intrahepatic biliary dilatation caused by mass effect of the liver mass. Patient having trouble remembering to take her medications which was felt to contribute to her worsening findings. She is followed by Dr. Crawford as an outpatient and is currently on oral capecitabine. Will need to follow-up with oncology as outpatient. (4) Hypertension: Qualifiers: Hypertension type: essential hypertension Qualified Code(s): I10 - Essential (primary) hypertension Code(s): I10 - Essential (primary) hypertension Status: Chronic Assessment and Plan: Blood pressure reviewed on 01/03/2020. Presently acceptable. Will continue metoprolol. (5) Confusion: Code(s): R41.0 - Disorientation, unspecified Status: Acute Assessment and Plan: CT brain on 12/07/2019 with no acute changes. Known intermittent issues with confusion prior to this admission. Currently stable. No new issue. (6) Depression: Qualifiers: Depression Type: major depressive disorder Major depression recurrence: unspecified whether recurrent Active/Remission status: currently active Major depression episode severity: unspecified Qualified Code(s): F32.9 - Major depressive disorder, single episode, unspecified Code(s): F32.9 - Major depressive disorder, single episode, unspecified Status: Chronic Assessment and Plan: Patient carries a diagnosis of depression on her past medical history but is not on medication at this time. May need to be addressed at SNF. (7) DVT prophylaxis: Code(s): Z29.9 - Encounter for prophylactic measures, unspecified Status: Acute Assessment and Plan: Lovenox. Time Spent With Patient Time with patient: 15 - 25 minutes Subjective Date/time seen: 01/03/20 08:58 Interval history: Date of Service: 01/03/2020. Admitted with abdominal pain and found to have liver abscess. Known metastatic colon cancer. Sitting in chair. Continues to generally not feel well. No chest pain. No shortness of breath. No abdominal pain. Review of Systems Constitutional: Con
--- NOTE | 2020-01-03 22:47 | PM.DS ---
DS: Diagnosis Admitting Diagnosis Admitting Diagnosis: Abscess of liver Discharge Diagnosis (1) Abscess of liver: Code(s): K75.0 - Abscess of liver Status: Acute (2) C. perfringens infection: Code(s): B96.7 - Clostridium perfringens [C. perfringens] as the cause of diseases classified elsewhere Status: Acute (3) Colon cancer metastasized to liver: Code(s): C18.9 - Malignant neoplasm of colon, unspecified; C78.7 - Secondary malignant neoplasm of liver and intrahepatic bile duct Status: Acute (4) Hypertension: Qualifiers: Hypertension type: essential hypertension Qualified Code(s): I10 - Essential (primary) hypertension Code(s): I10 - Essential (primary) hypertension Status: Chronic (5) Confusion: Code(s): R41.0 - Disorientation, unspecified Status: Acute (6) Depression: Qualifiers: Active/Remission status: currently active Depression Type: major depressive disorder Major depression episode severity: unspecified Major depression recurrence: unspecified whether recurrent Qualified Code(s): F32.9 - Major depressive disorder, single episode, unspecified Code(s): F32.9 - Major depressive disorder, single episode, unspecified Status: Chronic DS: Summary Hospital Course Reason for hospitalization: Abdominal pain. Hospital Course: Date of Service of Discharge: January 03, 2020. History of Present Illness: Patient is an 79-year-old female with known metastatic colon cancer who presented to the emergency room with abdominal pain. Patient does have some problems with confusion with history being limited as a result. Patient initially was unable to remember she presented to the emergency room but then was able to stay should bilateral upper abdominal pain. Patient unsure as to when pain started. Patient did not recall having fever, chills, nausea or vomiting. She did however report nausea to the ER physician. No urinary symptoms. She does report constipation diarrhea at times but cannot elaborate. No no chest pain or shortness of breath. Of note, she had been admitted here on December 08 for sepsis with UTI Klebsiella and septicemia with Clostridium perfringens. She had been on IV Unasyn while in hospital discharge to rehab facility on December 14 with Augmentin 500 mg q.8 hours for an additional 9 days. She should have completed this treatment by December 23 but [facility] notes indicate the patient was placed on Augmentin 875 mg b.i.d. with last dose on 12/27/2019. In the emergency room, she was hemodynamically stable. CT scan did show possible hepatic abscess. As result, she was admitted for further evaluation and treatment. Course in Hospital: Patient was placed on the medical floor where she remained for the duration of her stay. She was seen in consultation by both surgery and Infectious Disease. Patient was initially started on IV Zosyn and metronidazole through the emergency room with IV antibiotics adjusted to IV Zosyn per Infectious Disease. Attempt was made for percutaneous drainage of liver abscess on 01/01/2020 but was unsuccessful due to too small of an amount. Patient's WBC which was elevated on admission did normalize within 48 hours and remained such for the remainder of her stay. On the IV Zosyn alone as noted with plan for full 14 day course of treatment. Patient was not felt appropriate to return home with her current state. She was seen by physical and occupational therapy during her stay. Care coordination was able to find [facility] facility able to accept patient with the IV Zosyn treatment needed. She did also have authorization from insurance received. Patient was able to tolerate diet throughout her stay with no nausea or vomiting. Or shortness of breath. Blood pressure was acceptably controlled on metoprolol. Patient was unable to continue her oral capecitabine during her stay as non formulary but plan
[2020-01-21 08:40] LABS: Glucose Point of Care 115 (65-105)
== END 2020-01-03 11:40 | DRG 442 ==
LOC: ANHED 22:41 → ANH3MED 22:48
PROVIDERS: Internal Medicine; Admitting Provider Internal Medicine; Emergency Provider Emergency Medicine; PCP Internal Medicine; Visit Provider Hospitalist
DX: K75.0 Abscess of liver (principal); C79.9 Secondary malignant neoplasm of unspecified site; Z85.038 Personal history of other malignant neoplasm of large intestine; J44.9 Chronic obstructive pulmonary disease, unspecified; K21.9 Gastro-esophageal reflux disease without esophagitis; Z87.442 Personal history of urinary calculi; Z92.21 Personal history of antineoplastic chemotherapy; I10 Essential (primary) hypertension; R41.0 Disorientation, unspecified; Z98.41 Cataract extraction status, right eye; Z98.42 Cataract extraction status, left eye; Z90.49 Acquired absence of other specified parts of digestive tract; F17.210 Nicotine dependence, cigarettes, uncomplicated; G25.81 Restless legs syndrome; F03.90 Unspecified dementia, unspecified severity, without behavioral disturbance, psychotic disturbance, mood disturbance, and anxiety; F32.9 Major depressive disorder, single episode, unspecified
CPT/HCPCS: 36415; 51701; 71046; 74018; 74177; 76705; 80048; 80053; 81001; 82948; 83605; 84484; 85025; 85027; 85610; 85730; 86140; 87040; 87081; 93005; 96361; 96365; 96366; 96367; 96375; 97110; 97116; 97161; 97165; 99285; A9270; G0378; J1642; J1650; J2270; J2405; J2543; J7030; Q9967

== ENCOUNTER 2020-01-07 20:14 | Emergency (ER) | payer MEDICARE, SELFPAY ==
--- NOTE | ~2020-01-07 | XR_ITS ---
XR forearm RT 2V 01/07/2020 20:48 Indication: Right arm pain after fall Procedure: 2 views right forearm Comparison: 08/31/2018 Findings: There is a healed radial head fracture. There is an old healed ulnar styloid fracture. Oste openia. There are degenerative changes of the triscaphe joint. No acute fracture or traumatic malalig nment. No focal soft tissue abnormality. No radiopaque foreign bodies. Impression: 1: No acute fracture. Reviewed, dictated and finalized at location A. BILITATION SPECIALIST Impression: 1: No acute fracture.
--- NOTE | ~2020-01-07 | XR_ITS ---
XR shoulder RT min 2V 01/07/2020 21:31 Indication: Right shoulder pain. Recent fall. Procedure: 4 views right shoulder Comparison: 12/07/2019 Findings: No acute fracture or traumatic malalignment. There are mild degenerative changes of the gle nohumeral joint. There is a central venous catheter, tip in the SVC. Osteopenia. Visualized lung pare nchyma is unremarkable. Impression: 1: No acute bone or joint abnormality. Reviewed, dictated and finalized at location A. DEVELOPER Impression: 1: No acute bone or joint abnormality.
--- NOTE | ~2020-01-07 | CT_ITS ---
EXAMINATION: CT brain wo con DATE: 01/07/2020 20:45 INDICATION: Status post fall. Trauma to the back of the head. TECHNIQUE: Computed tomography (CT) of the head was performed without intravenous contrast. The dose- length product was 439.83 mGy-cm. The mA was adjusted according to patient size. Iterative reconstruc tion technique was employed. COMPARISON: CT dated 12/07/2019 FINDINGS: No acute intracranial hemorrhage, infarction, mass or mass effect. There is intracranial at herosclerosis. Generalized atrophy. There are scattered severe periventricular and subcortical white matter changes, most likely related to small vessel ischemic disease (microangiopathy). No ventriculo megaly or midline shift. There is intracranial atherosclerosis. Basilar cisterns are patent. Paranasa l sinuses and mastoids are pneumatized. No depressed skull fractures. Midline sagittal images are unr emarkable. IMPRESSION: 1. No acute intracranial abnormality. 2: Chronic age-related findings. Reviewed, dictated and finalized at location A. ATOR ENGINEER
--- NOTE | ~2020-01-07 | CT_ITS ---
EXAMINATION: CT cervical spine wo con DATE: 01/07/2020 20:45 INDICATION: Neck pain. Status post fall. TECHNIQUE: Computed tomography (CT) of the cervical spine was performed without intravenous contrast. The dose-length product was 440 mGy-cm. Automated exposure control and iterative reconstruction tech Merlin Diamondsque were employed. COMPARISON: CT dated 12/07/2019 FINDINGS: There is straightening of cervical lordosis. There is disc narrowing and endplate degenerat kaden change at C4-5, C5-6 and C6-7. There is degenerative anterolisthesis at C7-T1, unchanged. There a re osteolytic defects of the C3 and C4 vertebral bodies. There is mild dextrocurvature of the cervica l spine. There is moderate multilevel uncovertebral hypertrophy, most advanced at the C5-6 and C6-7. Odontoid process within normal limits. Lung apices are normal. No significant paraspinal soft tissue abnormality. IMPRESSION: 1. No acute abnormality of the cervical spine. 2: Moderate cervical spondylosis. 3: Osteolytic defects of C3 and C4. Consider myeloma and metastatic disease. Reviewed, dictated and finalized at location A. METRIST OWNER
[2020-01-07 20:12] VITALS: BP 147/82; PULSE 86; RESP 17; TEMP 36.7; O2SAT 97
--- NOTE | 2020-01-07 20:18 | ED.HEATRA ---
HPI - Head Injury General Chief complaint: Fall Stated complaint: fall Time Seen by Provider: 01/07/20 20:14 Source: patient and RN notes reviewed Mode of arrival: EMS Limitations: no limitations History of Present Illness HPI Narrative: Pt is an 79 y/o female presenting to the ED c/o fall. Pt reports she hit the back of her head during the fall on a leg of her bed earlier tonight. Pt states she slipped on the floor leading to the fall and did not think she experienced LOC. Pt also reports, neck pain, and bilateral shoulder pain, but denies LOC, dizziness, nausea, or hip pain. Pt states she is not currently on a blood thinner. Pt states she has previously had a neck fracture which did not require surgery. Patient is poor historian. Onset (ago): unknown (Earlier tonight) Mechanism of Injury: fall Place: home Loss of Consciousness: no Associated symptoms: neck pain and other (Bilateral shoulder pain) Related Data Home Medications Medication Instructions Recorded Confirmed capecitabine 1,000 mg PO BID 09/07/19 12/29/19 esomeprazole magnesium 40 mg DAILY MDD 40 12/07/19 12/29/19 Allergies Allergy/AdvReac Type Severity Reaction Status Date / Time No Known Allergies Allergy Verified 12/29/19 02:09 Review of Systems Review of Systems: All systems reviewed & are unremarkable except as noted in HPI and below Gastrointestinal: Gastrointestinal: Denies nausea Musculoskeletal: Musculoskeletal: Reports neck pain and Reports other (Reports: Bilateral shoulder pain; Denies: Hip pain) Neurologic: Denies dizziness and Denies other (LOC) [facility] Past Medical History Medical History (Updated 01/07/20 @ 22:09 by Bethanie Gutierrez MD) Colon cancer metastasized to liver Diagnosed in October 2016, status post right hemicolectomy. Found to have a metastatic hepatic lobe mass followed since 2017. COPD (chronic obstructive pulmonary disease) Depression GERD (gastroesophageal reflux disease) Hypertension Kidney stones Myocardial infarction Neck fracture Restless leg syndrome Surgical History Surgical History H/O bilateral cataract extraction History of appendectomy History of cholecystectomy History of colon resection Right Hemicolectomy in November 2016 for colon cancer. History of lithotripsy History of tonsillectomy Family History Family History Father Lung cancer Sibling Cancer Social History Social History Social History: patient went to a [facility] facility after last hospitalization. she was living home alone prior to that hospitalization. Smoking packs per day: 2 Smoking cigarettes per day: 40.0 Years smoked: 20 Smoking pack-years: 40.00 Smoking status: Former smoker Tobacco type: cigarettes Second hand tobacco smoke exposure: No Smoking end date: 11/21/07 Alcohol intake: never Substance use: never Substance use type: does not use Gender identity (if verbalized by the patient): Female Spiritual care concerns: No Agree to blood products: Yes Exam Narrative: Exam Narrative: GENERAL: Well-appearing, well-nourished, and in no acute distress. HEAD: Normocephalic, left posterior hematoma, there is superficial 1 cm linear laceration, no stitches required EYES: PERRLA and EOMI, conjunctiva clear without discharge EARS: TM's clear bilaterally without erythema or dullness NOSE: Nares clear, no rhinorrhea or epistaxis THROAT:Mucous membranes moist, Oropharynx normal without erythema, exudate, peritonsillar swelling or fluctuance NECK: in cervical collar RESPIRATORY: No respiratory distress, Airway patent, Respirations non-labored, Clear to auscultation without rales, rhonchi or wheeze HEART: Regular rate and rhythm. No murmur heard. Normal peripheral pulses. ABDOMEN: Soft, nontender, nondistended, normal active bowel sounds. No masses. No reboun
--- NOTE | 2020-01-07 22:20 | PC.NURSE ---
Called [facility] to transport back to facility...ETA midnight
== END 2020-01-08 00:25 ==
PROVIDERS: Emergency Provider General Practice; PCP Internal Medicine
DX: S09.90XA Unspecified injury of head, initial encounter (principal); S40.021A Contusion of right upper arm, initial encounter; W01.190A Fall on same level from slipping, tripping and stumbling with subsequent striking against furniture, initial encounter; Z85.038 Personal history of other malignant neoplasm of large intestine; C78.7 Secondary malignant neoplasm of liver and intrahepatic bile duct; J44.9 Chronic obstructive pulmonary disease, unspecified; K21.9 Gastro-esophageal reflux disease without esophagitis; I10 Essential (primary) hypertension; Z87.442 Personal history of urinary calculi; I25.2 Old myocardial infarction; G25.81 Restless legs syndrome; Z98.42 Cataract extraction status, left eye; Z98.41 Cataract extraction status, right eye; Z90.49 Acquired absence of other specified parts of digestive tract; Z87.891 Personal history of nicotine dependence; M47.812 Spondylosis without myelopathy or radiculopathy, cervical region; M89.9 Disorder of bone, unspecified
CPT/HCPCS: 70450; 72125; 73030; 73090; 99284

== ENCOUNTER 2020-02-02 16:03 | Inpatient (IN) | payer MEDICARE, SELFPAY ==
--- NOTE | ~2020-02-02 | CT_ITS ---
EXAMINATION: CT abdomen pelvis w con DATE: 02/02/2020 17:20 INDICATION: Low abdominal pain. Abdominal distention. Nausea and vomiting. History of colon cancer. TECHNIQUE: Computed tomography (CT) of the abdomen and pelvis was performed with 100 cc Omnipaque 350 intravenous contrast. Automated exposure control and iterative reconstruction technique were employe d. Exam dose: 1012.56 mGy-cm total exam DLP. COMPARISON: 01/01/2020 limited abdominal ultrasound 12/28/2019 CT abdomen pelvis FINDINGS: There is mild atelectasis or scarring at the lung bases. No pericardial or pleural effusion. Small sliding hiatal hernia. There is a very large irregular mass at the medial segment left hepatic lobe with masses involving th e lateral segment as well, largely stable since 12/28/2019. There is associated prominent ductal dilata tion of the left hepatic lobe. Stable approximately 8 mm right hepatic cyst. Normal splenic size. Stable right adrenal mass with calcifications, not significantly changed since 12/28/2019. Bilateral renal cysts, more prominent on the left, stable since 12/28/2019. No urinary tract calculus or hydroureteronephrosis. The urinary bladder is unremarkable. Status post hysterectomy. There are numerous diverticula of the sigmoid and descending colon; no CT evidence of diverticulitis. Status post right colectomy. There is a wide ventral hernia in the umbilical area containing colon, without strangulation or obstr uction. Slightly inferiorly is a smaller right parasagittal ventral abdominal wall defect containing small bowel segment with mild relative dilatation up to 1.8 cm diameter and fluid and air, which may indicate mild partial obstruction at this location. Otherwise no bowel obstruction or intraperitoneal free air is detected. No significant change of mixed soft tissue and fat attenuation in the presacral space. There is abdominal aortic calcification, without evidence of aneurysm. No intraperitoneal or retroper itoneal or pelvic mass lesion or adenopathy or ascites is noted otherwise. Degenerative changes of the thoracic and lumbar spine, including prominent degenerative disc disease at L2-3, L3-4, L4-5 and particular, with associated mild retrolisthesis at L2-3. IMPRESSION: Left medial and lateral segment hepatic masses, largely stable since 12/28/2019 Status post cholecystectomy Small sliding hiatal hernia. Right hepatic and multiple bilateral renal cysts Status post hysterectomy Diverticulosis of the left colon Status post right colectomy Ventral abdominal wall hernias, one of which contains small bowel segment with possible mild partial small bowel obstruction; consider surgical consultation Reviewed, dictated and finalized at [facility]. Reviewed, dictated and finalized at [facility]. IMPRESSION: Left medial and lateral segment hepatic masses, largely stable sin ce 12/28/2019 Status post cholecystectomy Small sliding hiatal hernia. Right hepatic and multiple bilateral renal cysts Status post hysterectomy Diverticulosis of the left colon Status post right colectomy Ventral abdominal wall hernias, one of which contains small bowel segment with possible mild partial small bowel obstruction; consider surgical consultation
--- NOTE | ~2020-02-02 | XR_ITS ---
XR chest 1V portable DATE: 02/02/2020 16:40 INDICATION: Shortness of breath, cough TECHNIQUE: Portable AP chest on 02/02/2020 at 1641 hours COMPARISON: 12/28/2019 AP and lateral views FINDINGS: 3 views. Aortic calcification. Left Port-A-Cath catheter tip overlies superior vena cava. Cardiomegaly. Aortic calcification. There is mild pulmonary vascular congestion and redistribution. No significant pleural effusion is ev ident. Mild infiltrate or atelectasis at the lung bases. No pneumothorax. Diffuse osteopenia. IMPRESSION: Cardiomegaly, mild congestive heart failure Mild infiltrate or atelectasis at the lung bases. Reviewed, dictated and finalized at [facility].
--- NOTE | ~2020-02-02 | XR_ITS ---
XR abdomen obstructive series DATE: 02/03/2020 06:16 INDICATION: Lower abdominal pain, vomiting. Possible small bowel obstruction at hernia site TECHNIQUE: Portable supine and upright AP views COMPARISON: 02/02/2020 CT abdomen pelvis FINDINGS: Radiopaque contrast material is noted in the urinary tracts including urinary bladder from recent IV contrast demonstration for 02/02/2020 CT abdomen pelvis examination. The bowel gas pattern is nonspecific, without apparent obstruction. The psoas shadows are intact. No visceromegaly is evident. Surgical clips, right upper quadrant, cons istent with cholecystectomy. Left-sided Port-A-Cath is noted, catheter tip overlying superior vena cava. Diffuse idiopathic skeletal hyperostosis of the thoracolumbar spine. Multilevel degenerative disease of the lumbar spine. IMPRESSION: Nonspecific abdomen Reviewed, dictated and finalized at [facility] Reviewed, dictated and finalized at [facility]. IMPRESSION: Nonspecific abdomen
[2020-02-02 15:59] VITALS: BP 156/58; PULSE 143; RESP 21; TEMP 37.7; O2SAT 91
--- NOTE | 2020-02-02 16:05 | ECG_ITS ---
Measurements Intervals [place] Rate: 139 P: 71 AL: 139 QRS: -13 QRSD: 101 T: 60 QT: 240 QTc: 365 Interpretive Statements SINUS TACHYCARDIA FREQUENT ATRIAL PREMATURE COMPLEXES LEFT VENTRICULAR HYPERTROPHY AND ST-T CHANGE BORDERLINE ST-T WAVE ABNORMALITY- DIFFUSE LEADS BASELINE WANDER- I, II, AVR, V6 ABNORMAL ECG Electronically Signed On 02-03-2020 9:29:28 CDT by August De Jesus D.O.
--- NOTE | 2020-02-02 16:08 | ED_ITS ---
I attest that this documentation has been prepared under the direction and in the presence of Bethanie Gutierrez MD. Ariel Her, Dipika 02/02/20;16:09 HPI - Altered Mental Status General Chief Complaint: Weakness Stated Complaint: ams Time Seen by Provider: 02/02/20 16:07 Mode of arrival: EMS Related Data Home Medications Medication Instructions Recorded Confirmed capecitabine 1,000 mg PO BID 09/07/19 12/29/19 esomeprazole magnesium 40 mg DAILY MDD 40 12/07/19 12/29/19 Allergies Allergy/AdvReac Type Severity Reaction Status Date / Time No Known Allergies Allergy Verified 12/29/19 02:09 [facility] Past Medical History Medical History (Updated 01/09/20 @ 00:00 by Briseida Leal) Colon cancer metastasized to liver Diagnosed in October 2016, status post right hemicolectomy. Found to have a metastatic hepatic lobe mass followed since 2016. COPD (chronic obstructive pulmonary disease) Depression GERD (gastroesophageal reflux disease) Hypertension Kidney stones Myocardial infarction Neck fracture Restless leg syndrome Surgical History Surgical History H/O bilateral cataract extraction History of appendectomy History of cholecystectomy History of colon resection Right Hemicolectomy in November 2016 for colon cancer. History of lithotripsy History of tonsillectomy Social History Social History Social History: [facility]. she was living home alone prior to that hospitalization. Smoking packs per day: 2 Smoking cigarettes per day: 40.0 Years smoked: 20 Smoking pack-years: 40.00 Smoking status: Former smoker Tobacco type: cigarettes Second hand tobacco smoke exposure: No Smoking end date: 11/21/07 Alcohol intake: never Substance use: never Substance use type: does not use Gender identity (if verbalized by the patient): Female Spiritual care concerns: No Agree to blood products: Yes Course Vital Signs Vital signs: Vital Signs Temperature 37.7 C H 02/02/20 15:59 Pulse Rate 143 H 02/02/20 15:59 Respiratory Rate 21 H 02/02/20 15:59 Blood Pressure 156/58 H 02/02/20 15:59 Pulse Oximetry 91 02/02/20 15:59 Temperature 37.7 C H 02/02/20 15:59 Pulse Rate 137 H 02/02/20 16:10 Respiratory Rate 21 H 02/02/20 15:59 Blood Pressure 156/58 H 02/02/20 15:59 Pulse Oximetry 91 02/02/20 15:59 Discharge Plan Discharge Prescriptions: No Action capecitabine 500 mg Tablet 1,000 mg PO BID RF: 0 Hold Instructions: Resume when okay with Dr Crawford sodium chloride [Saline Mist] 0.65 % Aerosol,[place] 1 spray intranasal Q6HR PRN (Reason: Congestion) Qty: 15 RF: 0 Zosyn in dextrose (iso-osm) 3.375 gram/50 mL Piggyback 3.375 g IV Q6HR 9 Days Qty: 1800 RF: 0 hydrocodone-acetaminophen [[place]] 5-325 mg tablet 1 tablet PO Q6H PRN (Reason: pain) Qty: 10 RF: 0 esomeprazole magnesium 40 mg capsule,delayed release(DR/EC) 40 mg DAILY MDD 40 RF: 0 Benadryl Itch Stopping 1-0.1 % Cream 1 applic topical QID PRN (Reason: Itching) Qty: 28.3 RF: 0 metoprolol tartrate 25
[2020-02-02 16:10] VITALS: PULSE 137
--- NOTE | 2020-02-02 16:24 | ED.NAVMDI ---
HPI - Nausea/Vomiting/Diarrhea General Chief complaint: Weakness Stated complaint: ams Time Seen by Provider: 02/02/20 16:07 Source: patient and RN notes reviewed Mode of arrival: EMS Limitations: other (Poor historian) History of Present Illness HPI Narrative: The pt is an 79 y/o female who presents to the ED, via EMS, c/o N/V/D onset today. Pt presents from [facility]. Per RN note, pt's symptoms began after lunch today. Pt states that she was experiencing ABD pain earlier, but is not now. Pt denies vomiting up blood. Per RN note, pt was provided Zofran 4 mg. The HPI is limited due to the pt being a poor historian. Pt responds to most questions with I don't know. MD elicited complaint: nausea, vomiting and diarrhea Associated nausea: Yes Associated abdominal pain: Yes (Resolved) Associated symptoms: other (None) Treatment prior to arrival: other (Zofran) Related Data Home Medications Medication Instructions Recorded Confirmed capecitabine 1,000 mg PO BID 09/07/19 12/29/19 esomeprazole magnesium 40 mg DAILY MDD 40 12/07/19 12/29/19 Allergies Allergy/AdvReac Type Severity Reaction Status Date / Time No Known Allergies Allergy Verified 12/29/19 02:09 Review of Systems Review of Systems: ROS unobtainable: other (Limited due to pt being a poor historian.) Gastrointestinal: Gastrointestinal: Reports abdominal pain (Resolved), Reports diarrhea, Reports nausea, Reports vomiting and Denies hematemesis PMFSH Past Medical History Medical History Colon cancer metastasized to liver Diagnosed in October 2016, status post right hemicolectomy. Found to have a metastatic hepatic lobe mass followed since 2017. COPD (chronic obstructive pulmonary disease) Depression GERD (gastroesophageal reflux disease) Hypertension Kidney stones Myocardial infarction Neck fracture Restless leg syndrome Surgical History Surgical History H/O bilateral cataract extraction History of appendectomy History of cholecystectomy History of colon resection Right Hemicolectomy in November 2016 for colon cancer. History of lithotripsy History of tonsillectomy Social History Social History (Updated 02/02/20 @ 16:32 by Ariel Her) Social History: patient went to a group home facility after last hospitalization. she was living home alone prior to that hospitalization. Smoking packs per day: 2 Smoking cigarettes per day: 40.0 Years smoked: 20 Smoking pack-years: 40.00 Smoking status: Former smoker Tobacco type: cigarettes Second hand tobacco smoke exposure: No Smoking end date: 11/21/07 Alcohol intake: never Substance use: never Substance use type: does not use Additional living arrangements comments: [facility] Gender identity (if verbalized by the patient): Female Spiritual care concerns: No Agree to blood products: Yes Exam Const: General: alert and confusion HENMT: Head: normocephalic and atraumatic Face and sinus: sinuses nontender and face symmetric Mouth: Yes dry mucous membranes Throat: tonsils normal and uvula midline Eyes: Pupils: Equal, round and reactive pupils present EOM: EOMs intact bilaterally Chest: Chest palpation & inspection: normal inspection of the chest Resp: Effort & Inspection: normal respiratory effort, no retractions and not tachypneic Auscultation: clear to auscultation bilaterally Cardio: Rate: tachycardic Rhythm: regular rhythm Heart sounds: no murmurs GI: Inspection: distended GI Palp: Yes Tenderness to palpation present (GI) (diffuse), No Guarding due to palpation present (GI) and No Rigid due to palpation Auscultation: Hypoactive bowel sounds present Skin: General skin exam: normal color Rashes: no rashes Neuro: General: moves all extremities Course Reevaluation(s) Reevaluation #1: Patient's grandauter is a
[2020-02-02 16:30] LABS: Hematocrit 43.1 % (37.0-47.0); Hemoglobin 13.7 g/dL (12.0-15.0); Mean Corpuscular HGB Conc 31.8 g/dl (32-36); Mean Corpuscular Hemoglobin 32.7 pg (26-34); Mean Corpuscular Volume 102.9 fl (80-100); Mean Platelet Volume 10.6 fl (7.4-10.4); Platelet Count Result 188 k/mm3 (150-375); Red Blood Count 4.19 M/mm3 (4.2-5.4); Red Cell Distribution Width 15.7 % (11.5-14.5); White Blood Count 14.9 K/mm3 (4.5-10.0)
[2020-02-02 16:35] LABS: Add Urine Microscopic? YES; Appearance Urine Clear (Clear); Bacteria Urine Trace /hpf; Bilirubin Urine Negative (Negative); Blood Urine Negative (Negative); Color Urine Yellow (Yellow); Glucose Urine UA Negative (Negative); Ketones Urine Negative (Negative); Leukocyte Esterase Ur Trace LEU/UL (Negative); Mucus Urine Rare /lpf; Nitrate Urine Positive (Negative); Protein Urine 2+ mg/dL (Negative); Specific Grav Ur 1.011 (1.001-1.035); Squamous Epithelial Cell Urine Rare /hpf (Few); Urobilinogen Urine Negative mg/dL (<2.0); WBC Urine 0-3 /hpf
[2020-02-02] MEDS: PANTOPRAZOLE SODIUM IV 40 MG VIAL IV PUSH (16:39)
[2020-02-02] MEDS: ONDANSETRON INJ 4 MG/2 ML VIAL IV PUSH (16:39)
[2020-02-02] MEDS: SODIUM CHLORIDE 0.9% IV 1,000 ML 999 ML IV CONT ×3 (16:40→18:38)
[2020-02-02] MEDS: LACTATED RINGERS 1,000 ML 999 ML IV CONT (16:40)
[2020-02-02 16:46] LABS: Alanine Aminotransferase 84 U/L (4-35); Albumin Level 3.8 g/dL (3.5-5.1); Alkaline Phosphatase 460 U/L (38-126); Aspartate Amino Transferase 209 U/L (14-36); Bilirubin,Total 1.7 mg/dL (0.2-1.3); Blood Urea Nitrogen 12 mg/dL (7-17); Calcium 8.5 mg/dL (8.4-10.2); Carbon Dioxide 29 mmol/L (22-30); Chloride 100 mmol/L (98-107); Estimated Glomerular Filt Rate > 60; Glucose 117 mg/dL (65-105); Potassium 3.4 mmol/L (3.4-5.0); Sodium 138 mmol/L (137-145)
[2020-02-02 16:48] LABS: Alveolar/Arterial O2 Gradient 58.1 mmHg; Base Excess ABG -0.8 mEq/l (+/-2.0); Carboxyhemoglobin 1.1 % THb (0-2.0); Device NASAL CANNULA; Fractional Inspired Oxygen 28 %; HCO3 ABG 23.9 mEq/l (22.0-26.0); Methemoglobin ABG 0.2 %THb (0-1.5); Modified Allen's Test Pass; Oxygen Content ABG 18.8 %vol (16.0-22.0); Oxygen Saturation ABG 97.2 % (95.0-100.0); Oxyhemoglobin 95.7 % THb (90.0-100.0); PCO2 ABG 39.7 mmHg (35.0-45.0); PO2 ABG 94.7 mmHg (80.0-100.0); PO2 FiO2 Ratio Arterial Blood 3.38 %; Site Drawn RIGHT RADIAL; Total Hemoglobin 13.9 g/dL (12.0-18.0); pH ABG 7.397 (7.350-7.450)
[2020-02-02 16:51] LABS: Lactic Acid Reflex 2.8 mmol/L (0.7-2.1)
[2020-02-02 16:52] LABS: Ammonia < 9 umol/L (9-30)
[2020-02-02 16:56] LABS: Lipase 86 U/L (23-300); Magnesium 1.7 mg/dL (1.6-2.3)
[2020-02-02 16:56] LABS: INR 0.9; Partial Thromboplastin Time 22.6 SECONDS (22.3-36.8); Prothrombin Time 12.2 Seconds (11.1-14.7)
[2020-02-02 16:56] LABS: Band Neutrophils Percent 11 % (0-6); Lymphocytes Absolute Manual 0.59 K/mm3 (1.1-4.5); Monocytes Absolute Manual 1.04 K/mm3 (0.1-0.90); Monocytes Percent Manual 7 % (3-9); Neutrophils Absolute Manual 13.26 K/mm3 (1.7-7.2); Neutrophils Percent Manual 78 % (46-73); Nucleated Red Blood Cells 1 %; Platelet Estimate Adequate (Adequate); Total Cells Counted 100
[2020-02-02 16:57] LABS: Anisocytosis 2+ (NORMAL)
[2020-02-02 16:59] LABS: CRP 3.5 mg/dL (<1.0)
[2020-02-02 17:07] LABS: Troponin I 0.029 ng/mL (0.000-0.034)
[2020-02-02 17:28] LABS: Glucose Point of Care 132 (65-105)
[2020-02-02 18:07] VITALS: BP 119/72; PULSE 116; RESP 20; O2SAT 98
[2020-02-02 19:38] LABS: Reflex Lactic Acid Yes or No Add Lactic
[2020-02-02 20:00] VITALS: PULSE 111; RESP 18; O2SAT 98
--- NOTE | 2020-02-02 20:00 | PC.NURSE ---
This patient, Beau Serrano, was admitted to IMU Room 232-01. Patient/family oriented to hospital policies and general routines including ID bracelet, bed and alarms, visiting hours, pain management, procedures, bathroom and other care routines, personal items, smoking policy, room service/diet, and visiting hours. Valuables list has been completed. Information on how to activate the Rapid Response Team has been discussed. Patient/Family are encouraged to report perceived risks to care and to ask questions if they do not understand what they are told or what they should do.
[2020-02-02 20:08] VITALS: BP 122/75; RESP 18; TEMP 36.5; O2SAT 98; BMI 33.9
[2020-02-02] MEDS: OSELTAMIVIR PHOSPHATE ORAL SUSP 75 MG/12.5 ML SYRINGE PO (20:39)
[2020-02-02] MEDS: LACTATED RINGERS 1,000 ML 125 ML IV CONT (20:39)
[2020-02-02 21:37] LABS: Lactic Acid 1.8 mmol/L (0.7-2.1)
[2020-02-02 22:00] VITALS: PULSE 96
--- NOTE | 2020-02-02 23:01 | PM.IMHP ---
H&P: HPI History of Present Illness Chief complaint: severe sepsis, influenza A Narrative: Beau Serrano is a 79 year old female who resides at [facility]. Her last admission date was 12/29/2019 she was discharged 01/03/2020. She had liver abscesses that they attempted to drain. She had been on long-term Zosyn. [facility] for 14 days and has been completed. She has a history of colon cancer that metastasized to the liver. She is on acute may atrial appendage patient had C perfringens infection. She also had Clostridium perfringens as well. Patient started to feel sick after lunch. She has some abdominal pain. She was given [facility]fran at the [facility]. Patient is very forgetful. The patient was treated by Infectious Disease the last admission. Patient's mucous membranes are dry today. Her lactic was 1.8. Patient is a DNR. Patient tested positive for influenza a today. CT of the abdomen was read as ventral abdominal wall hernias, one of which contained small bowel segment with possible mild partial small bowel obstruction, consider surgical consultation. Surgery consultation has been placed. Patient is currently on oxygen and I am not sure she is on this at the [facility]. But she has 3 L on at this time. Date of service 02/02/2020 Review of Systems Review of Systems: Narrative: The patient is very forgetful All systems reviewed & are unremarkable except as noted in HPI and below Constitutional: Constitutional: Reports as per HPI and Reports no additional constitutional complaints Eyes: Eyes: Reports as per HPI and Reports no additional eye complaints ENT: Reports system reviewed and no additional complaints, except as documented and Reports Normal hearing present Cardiovascular: Cardiovascular: Reports no additional cardiovascular complaints Respiratory: Respiratory: Reports no additional respiratory complaints and Reports no additional respiratory complaints Gastrointestinal: Gastrointestinal: Reports as per HPI and Reports no additional gastrointestinal complaints Musculoskeletal: Musculoskeletal: Reports no additional musculoskeletal complaints Integumentary/Breasts: Skin/Breast: Reports system reviewed and no additional complaints, except as docu and Reports as per HPI Neurologic: Reports system reviewed and no additional complaints, except as documented, Reports as per HPI and Reports Normal hearing present Psychiatric: Psychiatric: Reports no additional psychiatric complaints and Reports as per HPI Endocrine: Endocrine: Reports no additional endocrine complaints Hematologic/Lymphatic: Hematologic/Lymphatic: Reports no additional hematologic/lymphatic complaints Allergic/Immunologic: Allergic/Immunologic: Reports no additional allergic/immunologic complaints [facility] Family History Family History Father Lung cancer Sibling Cancer Social History Social History (Updated 02/02/20 @ 23:15 by Hazel Cortez NP) Social History: patient went to a [facility] facility after last hospitalization [place]. she was living home alone prior to that hospitalization. She is a DNR according to her paperwork. She stated her is and she has one daughter. She said she is retired from [employer] Smoking packs per day: 3 Smoking cigarettes per day: 60.0 Years smoked: 30 Smoking pack-years: 90.00 Smoking status: Former smoker Tobacco type: cigarettes Second hand tobacco smoke exposure: Yes Smoking end date: 11/21/07 Alcohol intake: former Substance use: never Substance use type: does not use Living arrangements: [facility] Additional living arrangements comments: [facility] Occupation/Education: retired Gender identity (if verbalized by the patient): Female Spiritual care concerns: No Agree to blood products: Yes Meds Home Medi
[2020-02-03] VITALS (15 sets, daily range): BP systolic 101–149; BP diastolic 44–74; PULSE 71–98; RESP 16–20; TEMP 36.1–36.9; O2SAT 92–99
[2020-02-03] MEDS: METOPROLOL TARTRATE 12.5 MG TABLET PO ×3 (00:23→20:59)
[2020-02-03 00:25] LABS: Glucose Point of Care 108 (65-105)
[2020-02-03] MEDS: LACTATED RINGERS 1,000 ML 125 ML IV CONT ×2 (04:47→13:16)
[2020-02-03 05:33] LABS: Basophils Percent Auto 0.2 % (0.2-1.2); Eosinophils Absolute Auto 0.1 K/mm3 (0-0.3); Eosinophils Percent Auto 0.6 % (0-4.4); Hematocrit 39.6 % (37.0-47.0); Hemoglobin 12.7 g/dL (12.0-15.0); Immature Granulocyte Absolute 0.09 K/mm3 (0.00-0.031); Immature Granulocyte Percent A 0.6 % (0-0.5); Lymphocytes Absolute Auto 0.53 K/mm3 (0.9-3.2); Lymphocytes Percent Auto 3.3 % (18.3-44.2); Mean Corpuscular HGB Conc 32.1 g/dl (32-36); Mean Corpuscular Volume 102.9 fl (80-100); Monocytes Absolute Auto 1.1 K/mm3 (0.1-0.6); Monocytes Percent Auto 6.4 % (2.6-8.5); Neutrophils Absolute Auto 14.5 K/mm3 (1.3-6.7); Neutrophils Percent Auto 88.9 % (45.5-73.1); Platelet Count Result 170 k/mm3 (150-375); Red Blood Count 3.85 M/mm3 (4.2-5.4); Red Cell Distribution Width 15.6 % (11.5-14.5); White Blood Count 16.3 K/mm3 (4.5-10.0)
[2020-02-03 05:41] LABS: Alanine Aminotransferase 89 U/L (4-35); Albumin Level 3.5 g/dL (3.5-5.1); Alkaline Phosphatase 317 U/L (38-126); Aspartate Amino Transferase 132 U/L (14-36); Bilirubin,Total 1.2 mg/dL (0.2-1.3); Blood Urea Nitrogen 10 mg/dL (7-17); Calcium 8.7 mg/dL (8.4-10.2); Carbon Dioxide 29 mmol/L (22-30); Chloride 104 mmol/L (98-107); Estimated CRCL calculation 62 ml/min; Estimated Glomerular Filt Rate > 60; Glucose 87 mg/dL (65-105); Potassium 3.7 mmol/L (3.4-5.0); Sodium 137 mmol/L (137-145)
[2020-02-03 06:20] LABS: Glucose Point of Care 93 (65-105)
--- NOTE | 2020-02-03 08:12 | PM.IMPN ---
Progress Note: A&P Assessment and Plan (1) Partial small bowel obstruction: Code(s): K56.600 - Partial intestinal obstruction, unspecified as to cause Status: Acute Assessment and Plan: CT abdomen/pelvis done in the emergency room with ventral abdominal wall hernias 1 of which contains small bowel segment with possible mild partial small bowel obstruction. General surgery consulted and appreciate input. Will leave NPO until seen by surgery. Continue IV fluids. Small-bowel obstruction has been completed in with official reading pending. Telemetry reviewed on 02/03/2020 with sinus rhythm. Will transfer to medical floor as stable. (2) Influenza A: Code(s): J10.1 - Influenza due to other identified influenza virus with other respiratory manifestations Status: Acute Assessment and Plan: Positive for influenza A. Continue Tamiflu for a 5 day course. Continue isolation. Will continue IV fluids as noted above along with other supportive care. Chest x-ray with no pneumonia. Currently on room air. (3) Hypertension: Qualifiers: Hypertension type: essential hypertension Qualified Code(s): I10 - Essential (primary) hypertension Code(s): I10 - Essential (primary) hypertension Status: Chronic Assessment and Plan: Blood pressure reviewed on 02/03/2020 and currently acceptable. Will continue metoprolol tartrate as tolerates. Continue to monitor. (4) Depression: Qualifiers: Depression Type: major depressive disorder Major depression recurrence: unspecified whether recurrent Active/Remission status: currently active Major depression episode severity: unspecified Qualified Code(s): F32.9 - Major depressive disorder, single episode, unspecified Code(s): F32.9 - Major depressive disorder, single episode, unspecified Status: Chronic Assessment and Plan: Patient not on medication but known to have flat affect. Will monitor. (5) Colon cancer metastasized to liver: Code(s): C18.9 - Malignant neoplasm of colon, unspecified; C78.7 - Secondary malignant neoplasm of liver and intrahepatic bile duct Status: Acute Assessment and Plan: Known disease with recent treatment for abscess of liver. Patient is currently on capecitabine and will continue when able. (6) Abscess of liver: Code(s): K75.0 - Abscess of liver Status: Acute Assessment and Plan: Recent hospitalization in December for liver abscesses. Unable to drain at that time but was seen by general surgery and Infectious Disease. Patient did complete a course of IV Zosyn as directed by Infectious Disease. Also with recent Clostridium perfringens infection. (7) DVT prophylaxis: Code(s): Z29.9 - Encounter for prophylactic measures, unspecified Status: Acute Assessment and Plan: Lovenox. Subjective Date/time seen: 02/03/20 08:12 Interval history: Date of Service: 02/03/2020. Admitted with partial small bowel obstruction, influenza A. Patient with known metastatic colon cancer and recent treatment for liver abscesses. Patient states she generally does not feel well. No specific pain. Particularly no abdominal pain. No nausea vomiting has not passed flatus or had bowel movement. No chest pain. No cough or shortness of breath. Review of Systems Review of Systems: Narrative: Generally does not feel well. Constitutional: Constitutional: Denies fever(s) ENT: Denies dysphagia Cardiovascular: Cardiovascular: Denies chest pain Respiratory: Respiratory: Denies cough and Denies dyspnea Gastrointestinal: Gastrointestinal: Denies abdominal pain, Denies nausea and Denies vomiting Genitourinary: Genitourinary: Reports no additional female genitourinary complaints Musculoskeletal: Musculoskeletal: Reports no additional musculoskeletal complaints Integumentary/Breasts: Skin/Breast: Denies rash Neurologic: Denies headache(s) Psyc
[2020-02-03] MEDS: ENOXAPARIN 40 MG/0.4 ML SYRINGE SUB-Q (10:11)
[2020-02-03] MEDS: OSELTAMIVIR PHOSPHATE ORAL SUSP 75 MG/12.5 ML SYRINGE PO (10:11)
[2020-02-03] MEDS: PANTOPRAZOLE 40 MG TABLET PO (10:11)
--- NOTE | 2020-02-03 12:24 | PC.NURSE ---
This patient, Beau Serrano, was received from [place] [id number] on 02/03/20 at 1225. Personal belongings list checked and signed. Patient/family oriented to unit policies and routines.
--- NOTE | 2020-02-03 12:31 | PC.NURSE ---
This patient, Beau Serrano, was transferred to [facility] on 02/03/20 at 1222. Personal belongings sent with patient. Belongings list checked and signed with receiving RN. Report given to CARLENE Madden. Appropriate documentation sent with patient.
[2020-02-03 12:41] LABS: Glucose Point of Care 102 (65-105)
[2020-02-03 17:55] LABS: Glucose Point of Care 70 (65-105)
--- NOTE | 2020-02-03 18:43 | PM.CNGS ---
Assessment and Plan Assessment and plan (1) Partial small bowel obstruction: Onset Date: 02/02/20 Code(s): K56.600 - Partial intestinal obstruction, unspecified as to cause Status: Acute Assessment and Plan: At this time patient not exhibit any signs or symptoms of small-bowel obstruction. Repeat plain abdominal film this morning shows an unremarkable bowel gas pattern. Will begin advancing patient's diet. Immediately right now patient denies abdominal pain she has had no nausea or vomiting for the staff on the current floor so we will therefore go ahead and let her have some liquids tonight and advance to soft tomorrow if she feels well. She does not have any trouble with this and we check her in the morning she is doing well will probably sign office this was probably a transient signs of blockage on CT. (2) Influenza A: Onset Date: ~02/02/20 Code(s): J10.1 - Influenza due to other identified influenza virus with other respiratory manifestations Status: Acute (3) Colon cancer metastasized to liver: Onset Date: Unknown Code(s): C18.9 - Malignant neoplasm of colon, unspecified; C78.7 - Secondary malignant neoplasm of liver and intrahepatic bile duct Status: Acute Assessment and Plan: Patient apparently a at the current time is DNR. History of Present Illness Consult details Consult date: 02/03/20 Reason for consult: other ( possible small bowel obstruction by CT) Narrative: This patient is a rather demanding this 79-year-old white female who is significantly overweight and has known metastatic colon cancer after a right hemicolectomy. She has been residing at [facility] and recently received a course of Zosyn for a liver abscess. Yesterday afternoon apparently began having nausea vomiting and some diarrhea. Therefore, she was sent to the emergency room for evaluation. Now admitted with partial small bowel obstruction, influenza A. Patient with known metastatic colon cancer and recent treatment for liver abscesses. Patient states she generally does not feel well. No specific pain. Particularly no abdominal pain. No nausea vomiting has not passed flatus or had bowel movement. No chest pain. No cough or shortness of breath. Was asked to see the patient today to follow-up on the possibility of small-bowel obstruction in 1 of her ventral incisional hernias. See the CT scan report from yesterday evening. Today the patient is complaining that she feels fine she wants to eat something and that she has had a bowel movement today but the nursing staff have not record any thing as far as bowel movements. Patient did move from IMU she hears so there may have been 1 missed. Immediately right now patient denies abdominal pain she has had no nausea or vomiting for the staff on the current floor so we will therefore go ahead and let her have some liquids tonight and advance to soft tomorrow if she feels well. Review of Systems Constitutional: Constitutional: Reports no additional constitutional complaints, Reports fatigue and Denies malaise Eyes: Eyes: Denies change in vision and Denies loss of vision ENT: Reports Normal hearing present, Denies change in voice, Denies dizziness, Denies hoarseness and Denies sore throat Cardiovascular: Cardiovascular: Denies chest pain, Denies leg edema and Denies dyspnea Respiratory: Respiratory: Denies cough, Denies dyspnea and Denies wheezing Gastrointestinal: Gastrointestinal: Denies hematochezia, Denies change in bowel habits and Denies heartburn Comments: Claims that she had bowel movements each day the last few days at [facility]. Genitourinary: Genitourinary: Denies urinary frequency and Denies urinary incontinence Neurologic: Reports Normal hearing present, Denies confusion, Denies dizziness, Denies loss of vision, Denies memory loss and Denies seizure-like activity Psychiatric: Psychiatric: Denies confusion, Denies d
[2020-02-03] MEDS: OSELTAMIVIR PHOSPHATE 75 MG CAPSULE PO (20:59)
[2020-02-04] VITALS (17 sets, daily range): BP systolic 133–148; BP diastolic 57–80; PULSE 72–103; RESP 16–20; TEMP 36.2–36.8; O2SAT 92–94
[2020-02-04] MEDS: LACTATED RINGERS 1,000 ML 125 ML IV CONT (00:57)
[2020-02-04] MEDS: ALBUTEROL SULFATE NEB 2.5 MG/0.5 ML INH 5 MG INHALATION (01:42)
[2020-02-04 05:03] LABS: Glucose Point of Care 160 (65-105)
[2020-02-04 05:44] LABS: Hematocrit 37.2 % (37.0-47.0); Hemoglobin 11.7 g/dL (12.0-15.0); Mean Corpuscular HGB Conc 31.5 g/dl (32-36); Mean Corpuscular Hemoglobin 33.1 pg (26-34); Mean Corpuscular Volume 105.1 fl (80-100); Mean Platelet Volume 11.8 fl (7.4-10.4); Platelet Count Result 150 k/mm3 (150-375); Red Blood Count 3.54 M/mm3 (4.2-5.4); Red Cell Distribution Width 15.9 % (11.5-14.5); White Blood Count 9.2 K/mm3 (4.5-10.0)
[2020-02-04 05:48] LABS: Blood Urea Nitrogen 10 mg/dL (7-17); Calcium 8.7 mg/dL (8.4-10.2); Carbon Dioxide 30 mmol/L (22-30); Chloride 104 mmol/L (98-107); Estimated CRCL calculation 62 ml/min; Estimated Glomerular Filt Rate > 60; Glucose 93 mg/dL (65-105); Potassium 3.4 mmol/L (3.4-5.0); Sodium 137 mmol/L (137-145)
[2020-02-04] MEDS: PANTOPRAZOLE 40 MG TABLET PO (08:05)
[2020-02-04] MEDS: OSELTAMIVIR PHOSPHATE 75 MG CAPSULE PO ×2 (08:05→20:21)
[2020-02-04] MEDS: ENOXAPARIN 40 MG/0.4 ML SYRINGE SUB-Q (08:05)
[2020-02-04] MEDS: METOPROLOL TARTRATE 12.5 MG TABLET PO ×2 (08:05→20:21)
[2020-02-04] MEDS: ALBUTEROL SULFATE NEB 2.5 MG/0.5 ML INH INHALATION ×3 (08:27→18:53)
[2020-02-04 08:36] LABS: Glucose Point of Care 111 (65-105)
--- NOTE | 2020-02-04 11:00 | PM.IMPN ---
Progress Note: A&P Assessment and Plan (1) Partial small bowel obstruction: Onset Date: 02/02/20 Code(s): K56.600 - Partial intestinal obstruction, unspecified as to cause Status: Acute Assessment and Plan: CT abdomen/pelvis done in the emergency room with ventral abdominal wall hernias 1 of which contains small bowel segment with possible mild partial small bowel obstruction. General surgery consulted and appreciate input. Discussed with Dr. Medina today. Symptomatically has resolved. Patient now on soft diet. Will continue to monitor. (2) Bacteremia: Code(s): R78.81 - Bacteremia Status: Acute Assessment and Plan: Recent treatment for liver abscesses with IV Zosyn. Blood cultures positive for gram-negative bacilli with patient started on IV Zosyn yesterday. Given her history it is, infectious disease consulted and appreciate input. Continue to await final blood culture results. (3) Influenza A: Onset Date: ~02/02/20 Code(s): J10.1 - Influenza due to other identified influenza virus with other respiratory manifestations Status: Acute Assessment and Plan: Positive for influenza A. Continue Tamiflu for a 5 day course. Continue isolation. Will continue IV fluids as noted above along with other supportive care. Chest x-ray with no pneumonia. Remains on room air. (4) Hypertension: Qualifiers: Hypertension type: essential hypertension Qualified Code(s): I10 - Essential (primary) hypertension Code(s): I10 - Essential (primary) hypertension Status: Chronic Assessment and Plan: Blood pressure reviewed on 02/04/2020 and stable. Will continue metoprolol tartrate. Continue to monitor. (5) Depression: Qualifiers: Active/Remission status: currently active Depression Type: major depressive disorder Major depression episode severity: unspecified Major depression recurrence: unspecified whether recurrent Qualified Code(s): F32.9 - Major depressive disorder, single episode, unspecified Code(s): F32.9 - Major depressive disorder, single episode, unspecified Status: Chronic Assessment and Plan: Patient not on medication but known to have flat affect. Will monitor. (6) Colon cancer metastasized to liver: Onset Date: Unknown Code(s): C18.9 - Malignant neoplasm of colon, unspecified; C78.7 - Secondary malignant neoplasm of liver and intrahepatic bile duct Status: Acute Assessment and Plan: Known disease with recent treatment for abscess of liver. Patient is currently on capecitabine and will continue. (7) Abscess of liver: Code(s): K75.0 - Abscess of liver Status: Acute Assessment and Plan: Recent hospitalization in December for liver abscesses. Unable to drain at that time but was seen by general surgery and Infectious Disease. Patient did complete a course of IV Zosyn as directed by Infectious Disease as noted above. Also with recent Clostridium perfringens infection. (8) DVT prophylaxis: Code(s): Z29.9 - Encounter for prophylactic measures, unspecified Status: Acute Assessment and Plan: Lovenox. Time Spent With Patient Time with patient: 15 - 25 minutes Subjective Date/time seen: 02/04/20 11:00 Interval history: Date of Service: 02/04/2020. Admitted with partial small bowel obstruction, influenza A. Patient with known metastatic colon cancer and recent treatment for liver abscesses. Tired. No abdominal pain. No nausea or vomiting. No chest pain. No shortness of breath. Review of Systems Constitutional: Constitutional: Reports fatigue and Denies fever(s) ENT: Denies dysphagia Cardiovascular: Cardiovascular: Denies chest pain Respiratory: Respiratory: Denies cough and Denies dyspnea Gastrointestinal: Gastrointestinal: Denies abdominal pain, Denies dysphagia, Denies nausea and Denies vomiting Genitourinary: Genit
--- NOTE | 2020-02-04 12:45 | PCOTNOTE ---
Attempted to see patient for skilled OT, however, patient declined to participate in any functional ADL activity or exercise at this time. Patient not seen for OT this date.
--- NOTE | 2020-02-04 12:57 | PCPTNOTE ---
The PT treatment was unable to be completed today due to patient refusals. Will continue per Plan of Care frequency and duration.
[2020-02-04 13:01] LABS: Glucose Point of Care 107 (65-105)
--- NOTE | 2020-02-04 14:15 | WPDCDIQUERY2 ---
CDI Query Clarification Request -Sepsis documented by EDP - On arrival pt with P- 143, RR-21, WBC 14.9, Lactic Acid 2.8. -Blood cultures preliminary positive for gram negative bacilli -No further mention of sepsis -You have documented bacteremia Please clarify if sepsis was ruled in or ruled out. <Cheryl Machado RN - Last Filed: 02/04/20 14:18>
--- NOTE | 2020-02-04 17:47 | WPDINFPN2 ---
Progress Note: A&P Assessment and Plan (1) Bacteremia: Code(s): R78.81 - Bacteremia Status: Acute Assessment and Plan: 1. Gram negative bacteremia with infection, consider enteric gram neg or B frag group. 2. Flu A 3. Metastatic colon cancer to liver REC pip tazo #2 and oseltamavir # 3/5, f/u BC ident. Subjective Date/time seen: 02/04/20 17:47 Objective Data Vital Signs Vital Signs: Vital Signs - 24 hr 02/03/20 18:12 02/03/20 20:59 02/03/20 22:00 Temperature 36.9 C 36.1 C L Pulse Rate 98 88 91 Respiratory Rate 18 16 Blood Pressure 149/69 H 116/62 Pulse Oximetry 92 94 02/04/20 00:00 02/04/20 01:40 02/04/20 01:43 Temperature 36.3 C L Pulse Rate 85 72 72 Respiratory Rate 16 18 18 Blood Pressure 139/77 Pulse Oximetry 94 94 02/04/20 01:53 02/04/20 06:00 02/04/20 08:00 Temperature 36.8 C Pulse Rate 77 103 H 77 Respiratory Rate 18 16 16 Blood Pressure 145/80 H Pulse Oximetry 93 93 02/04/20 08:27 02/04/20 08:37 02/04/20 10:25 Temperature 36.4 C L Pulse Rate 85 97 88 Respiratory Rate 20 20 18 Blood Pressure 138/63 Pulse Oximetry 93 02/04/20 14:00 02/04/20 15:29 02/04/20 15:40 Temperature 36.5 C Pulse Rate 86 86 96 Respiratory Rate 20 20 20 Blood Pressure 137/67 Pulse Oximetry 93 Intake/Output Intake/Output: Intake & Output 02/01/20 02/02/20 02/03/20 02/04/20 23:59 23:59 23:59 23:59 Intake Total 4000 3300 1310 Output Total 400 700 750 Balance 3600 2600 560 Meds/Results Medications: Active Medications Generic Name Dose Route Start Last Admin Trade Name Freq PRN Reason Stop Dose Admin Albuterol 2.5 mg 02/04/20 06:00 02/04/20 15:29 Albuterol Sulf Neb 2.5mg/0.5ml INHALATION 2.5 mg Q6HRT NI Administration Enoxaparin Sodium 40 mg 02/03/20 09:00 02/04/20 08:05 Lovenox SUB-Q 40 mg DAILY NI Administration Lactated Ringer's 1,000 mls @ 75 mls/hr 02/02/20 18:50 02/04/20 01:43 Lr - Lactated Ringers Iv IV CONT Infused .[id number] NI Infusion Piperacillin/Tazobactam/Dextrose 3.375 gm in 50 mls @ 100 mls/hr 02/03/20 10:35 02/04/20 17:13 Zosyn 3.375 Gm/D5w 50ml Pm IVPB 100 mls/hr Q6HR NI Administration Acetaminophen 1,000 mg in 100 mls @ 400 mls/hr 02/04/20 07:06 02/04/20 15:20 Ofirmev 1,000 Mg Ivpb IVPB 02/05/20 07:07 Infused Q6H PRN Infusion Pain Rated 4-6 Metoprolol Tartrate 12.5 mg 02/02/20 23:05 02/04/20 08:05 Lopressor PO 12.5 mg Q12HR NI Administration Non-Formulary Medication 1,000 mg 02/03/20 09:00 Capecitabine PO 03/04/20 09:01 BID NI Ondansetron HCl 4 mg 02/02/20 18:47 Zofran Inj IV PUSH Q4H PRN Nausea Oseltamivir Phosphate 75 mg 02/03/20 21:00 02/04/20 08:05 Tamiflu Capsule PO 02/07/20 09:01 75 mg Q12HR NI Administration Pantoprazole Sodium 40 mg 02/03/20 09:00 02/04/20 08:05 Protonix PO 40 mg QAM NI Administration Radiology Results: ITS Impressions Chest X-Ray 02/02/20 16:54 IMPRESSION: Cardiomegaly, mild congestive heart failure Mild infiltrate or atelectasis at the lung bases. Abdomen/Pelvis CT 02/02/20 17:23 IMPRESSION: Left medial and lateral segment hepatic masses, largely stable since 12/28/2019 Status post cholecystectomy Small sliding hiatal hernia. Right hepatic and multiple bilateral renal cysts Status post hysterectomy Diverticulosis of the left colon Status post right colectomy Ventral abdominal wall hernias, one of which contains small bowel segment with possible mild partial small bowel obstruction; consider surgical consultation Abdomen X-Ray 02/03/20 08:33 IMPRESSION: Nonspecific abdomen Labs Labs: Laboratory Results - last 24 hr 02/03/20 02/03/20 02/04/20 17:39 20:58 05:05 WBC 9.2 RBC 3.54 L Hgb 11.7 L Hct 37.2 MCV 105.1 H MCH 33.1 MCHC 31.5 L RDW 15.9 H Plt Count 150 MPV
[2020-02-04 18:23] LABS: Glucose Point of Care 122 (65-105)
--- NOTE | 2020-02-04 18:35 | PM.PNGS ---
Progress Note: A&P Assessment and Plan (1) Partial small bowel obstruction: Onset Date: 02/02/20 Code(s): K56.600 - Partial intestinal obstruction, unspecified as to cause Status: Acute Assessment and Plan: Patient still does not exhibit any signs or symptoms of a small bowel obstruction. Abdominal x-ray yesterday showed a normal bowel gas pattern. CT findings were likely transient, rather than a true SBO. Diet advanced to soft diet today and she is tolerating this well. Will sign off of the patient at this point. Please let us know if there are any other surgical needs in the future. No follow-up needed. (2) Influenza A: Onset Date: ~02/02/20 Code(s): J10.1 - Influenza due to other identified influenza virus with other respiratory manifestations Status: Acute (3) Colon cancer metastasized to liver: Onset Date: Unknown Code(s): C18.9 - Malignant neoplasm of colon, unspecified; C78.7 - Secondary malignant neoplasm of liver and intrahepatic bile duct Status: Acute Additional Plan Discussed plan of care with Dr. Medina. Subjective Subjective Date/Time Seen: 02/04/20 14:00 Patient reports: flatus and bowel movement (yesterday) Interval history: Patient denies any abdominal pain, nausea, vomiting, or bloating today. Reports flatus today but no BM. Yesterday had a good bowel movement. Main complaint today is body aches and a headache which improved with IV Tylenol. No other complaints at this time. Review of Systems Review of Systems: All systems reviewed & are unremarkable except as noted in HPI and below Exam Const: General: cooperative, no acute distress, alert and awake Orientation/consciousness: patient oriented x3 GI: Inspection: non-distended and obesity GI Palp: No abdominal tenderness, Yes Soft to palpation, No Guarding due to palpation present (GI), No Palpable mass present and No Rebound tenderness present Auscultation: normal bowel sounds Other: Reducible non-tender hernias at the umbilical level and just slightly below and to the right of it. Skin: General skin exam: normal color Neuro: General: no focal motor deficits Psych: Mental Status: mental status grossly normal Attitude: cooperative Objective Data Vital Signs Vital Signs: Vital Signs - 24 hr 02/03/20 20:59 02/03/20 22:00 03/16/20 00:00 Temperature 36.1 C L 36.3 C L Pulse Rate 88 91 85 Respiratory Rate 16 16 Blood Pressure 116/62 139/77 Pulse Oximetry 94 94 02/04/20 01:40 02/04/20 01:43 02/04/20 01:53 Temperature Pulse Rate 72 72 77 Respiratory Rate 18 18 18 Blood Pressure Pulse Oximetry 94 02/04/20 06:00 02/04/20 08:00 02/04/20 08:27 Temperature 36.8 C Pulse Rate 103 H 77 85 Respiratory Rate 16 16 20 Blood Pressure 145/80 H Pulse Oximetry 93 93 02/04/20 08:37 02/04/20 10:25 02/04/20 14:00 Temperature 36.4 C L 36.5 C Pulse Rate 97 88 86 Respiratory Rate 20 18 20 Blood Pressure 138/63 137/67 Pulse Oximetry 93 93 02/04/20 15:29 02/04/20 15:40 02/04/20 17:56 Temperature 36.6 C Pulse Rate 86 96 92 Respiratory Rate 20 20 18 Blood Pressure 133/57 L Pulse Oximetry 92 Intake/Output Intake/Output: Intake & Output 02/01/20 02/02/20 02/03/20 02/04/20 23:59 23:59 23:59 23:59 Intake Total 4000 3300 1560 Output Total 400 700 750 Balance 3600 2600 810 Meds/Results Medications: Active Medications Generic Name Dose Route Start Last Admin Trade Name Freq PRN Reason Stop Dose Admin Albuterol 2.5 mg 02/04/20 06:00 02/04/20 15:29 Albuterol Sulf Neb 2.5mg/0.5ml INHALATION 2.5 mg Q6HRT NI Administration Enoxaparin Sodium 40 mg 02/03/20 09:00 02/04/20 08:05 Lovenox SUB-Q 40 mg DAILY NI Administration Lactated Ringer's 1,000 mls @ 75 mls/hr 02/02/20 18:50 02/04/20 01:43 Lr - Lactated Ringers Iv IV CONT Infused .[id number] NI Infusion Piperacillin/Tazobactam/Dextrose 3.375 gm in 50 mls @ 10
--- NOTE | 2020-02-04 19:06 | CONS_ITS ---
DATE OF CONSULTATION: 02/04/2020 REASON FOR CONSULTATION: Positive blood culture. HISTORY OF PRESENT ILLNESS: The patient is an 79-year-old female, known to me from recently. She was here in the hospital from until the 03 of January. She had liver abscess noted at that time, was given 14 days of piperacillin tazobactam. She was discharged to her residential, but returned here on the with one-day of nausea, abdominal pain. She was on piperacillin tazobactam yesterday when the blood culture returned positive and consultation requested. She is a poor historian. Cannot provide any additional historical information. However, she currently denies abdominal pain, nausea, vomiting, diarrhea, constipation, or flank pain. ALLERGIES: NONE KNOWN. PRESENT MEDICATIONS: List reviewed. She is on chemotherapy. HABITS: See record. PAST MEDICAL HISTORY: In addition to the above, COPD, GERD, depression, hypertension, nephrolithiasis, AR, restless leg, appendectomy, cholecystectomy, colon resection, lithotripsy, tonsillectomy. REVIEW OF SYSTEMS: 14-point review otherwise negative, although the patient's memory is compromised. SOCIAL HISTORY: Lives in alf, DNR. No family at the bedside, . FAMILY HISTORY: Not pertinent to present illness. PHYSICAL EXAMINATION: GENERAL: This is an elderly female, who appears her actual age, in no respiratory distress. VITAL SIGNS: Afebrile since arrival, 96, 20, 137/67. SKIN: No generalized rashes. EENT: Conjunctivae are normal. The oropharynx, oral mucosa normal. NECK: No masses. No meningismus. No thyromegaly. LUNGS: Clear to auscultation and percussion. CARDIAC: Regular rate and rhythm. No murmurs or gallops. ABDOMEN: Obese, nontender. No masses. No organomegaly. EXTREMITIES: 1+ edema. Port-A-Cath not present. LABORATORY DATA: White count 9.2, hemoglobin 11.7, platelets are 150. Differential reveals a mild left shift. Prothrombin time 12.2. Blood gases show no abnormalities. Chemistry panel today is normal as well. Her transaminases 4 times normal, alkaline phosphatase 317, CRP 3.5. Urinalysis reviewed. No evidence of infection. Blood cultures 2/2 sets, gram-negative rods to be identified from the . Her MRSA screen was negative. RADIOLOGY: Abdomen and pelvic CT performed on February 01, compared to prior showed left hepatic lobe irregular mass and others present elsewhere, stable since December 28, also right adrenal mass, calcified renal cysts, diverticula, umbilical hernia and chronic findings. ASSESSMENT: 1. Gram-negative bacteremia with infection. Consider an enteric gram-negatives or Bacteroides fragilis group. I think ultimately source is from the necrotic tumor in the right liver. Other less likely sources including lung, primary bloodstream, urine, lower GI biliary otherwise. 2. Acute influenza A by swab. 3. Metastatic colon cancer. 4. Umbilical hernia. RECOMMENDATIONS: 1. Continue piperacillin day 2. 2. Follow up on microbiology and will advise on any changes. 3. Oseltamivir also appropriate, 5-day course. Thank you so much for asking me to see her. KJ CAZARES M.D. DIETARY SUPERVISOR DIETARY SUPERVISOR D I [place]: [place]
[2020-02-04] MEDS: LACTATED RINGERS 1,000 ML 75 ML IV CONT (20:17)
[2020-02-04 21:56] LABS: Glucose Point of Care 144 (65-105)
[2020-02-05] VITALS (17 sets, daily range): BP systolic 103–152; BP diastolic 57–84; PULSE 68–110; RESP 16–20; TEMP 36.1–37; O2SAT 88–97
[2020-02-05] MEDS: ALBUTEROL SULFATE NEB 2.5 MG/0.5 ML INH 5 MG INHALATION (00:47)
[2020-02-05 00:54] LABS: Alveolar/Arterial O2 Gradient 77.9 mmHg; Base Excess ABG 4.1 mEq/l (+/-2.0); Fractional Inspired Oxygen 38 %; HCO3 ABG 29.1 mEq/l (22.0-26.0); Oxygen Content ABG 20.2 %vol (16.0-22.0); Oxygen Saturation ABG 98.8 % (95.0-100.0); Oxyhemoglobin 97.3 % THb (90.0-100.0); PO2 ABG 141.1 mmHg (80.0-100.0); PO2 FiO2 Ratio Arterial Blood 3.71 %; Total Hemoglobin 14.6 g/dL (12.0-18.0); pH ABG 7.429 (7.350-7.450)
[2020-02-05 00:55] LABS: Device NASAL CANNULA; Modified Allen's Test Pass; Site Drawn RIGHT RADIAL
[2020-02-05] MEDS: ALBUTEROL SULFATE NEB 2.5 MG/0.5 ML INH INHALATION ×4 (01:10→21:08)
[2020-02-05 05:36] LABS: Hematocrit 36.1 % (37.0-47.0); Hemoglobin 11.6 g/dL (12.0-15.0); Mean Corpuscular HGB Conc 32.1 g/dl (32-36); Mean Corpuscular Hemoglobin 32.8 pg (26-34); Platelet Count Result 156 k/mm3 (150-375); Red Blood Count 3.54 M/mm3 (4.2-5.4); Red Cell Distribution Width 15.8 % (11.5-14.5); White Blood Count 11.4 K/mm3 (4.5-10.0)
[2020-02-05 05:51] LABS: Blood Urea Nitrogen 9 mg/dL (7-17); Calcium 8.8 mg/dL (8.4-10.2); Carbon Dioxide 31 mmol/L (22-30); Chloride 103 mmol/L (98-107); Estimated CRCL calculation 62 ml/min; Estimated Glomerular Filt Rate > 60; Glucose 125 mg/dL (65-105); Potassium 3.7 mmol/L (3.4-5.0); Sodium 136 mmol/L (137-145)
[2020-02-05] MEDS: PANTOPRAZOLE 40 MG TABLET PO (09:05)
[2020-02-05] MEDS: METOPROLOL TARTRATE 12.5 MG TABLET PO ×2 (09:05→20:54)
[2020-02-05] MEDS: ENOXAPARIN 40 MG/0.4 ML SYRINGE SUB-Q (09:05)
[2020-02-05] MEDS: OSELTAMIVIR PHOSPHATE 75 MG CAPSULE PO ×2 (09:05→20:55)
[2020-02-05 09:48] LABS: Glucose Point of Care 117 (65-105)
--- NOTE | 2020-02-05 10:42 | PM.IMPN ---
Progress Note: A&P Assessment and Plan (1) Sepsis: Qualifiers: Sepsis type: sepsis due to unspecified organism Sepsis acute organ dysfunction status: without acute organ dysfunction Qualified Code(s): A41.9 - Sepsis, unspecified organism Code(s): A41.9 - Sepsis, unspecified organism Status: Acute Assessment and Plan: Patient did meet severe sepsis criteria on admission with tachycardia, tachypnea, elevated WBC and elevated lactic acid. Blood cultures now both positive for Klebsiella pneumoniae. Infectious disease consulted and appreciate input. Remains on IV Zosyn. Await further recommendations from Infectious Disease. IV fluids discontinued with patient now eating. Continue PT/OT. Plan to return to [facility] at discharge. (2) Partial small bowel obstruction: Onset Date: 02/02/20 Code(s): K56.600 - Partial intestinal obstruction, unspecified as to cause Status: Acute Assessment and Plan: CT abdomen/pelvis done in the emergency room with ventral abdominal wall hernias 1 of which contains small bowel segment with possible mild partial small bowel obstruction. General surgery consulted and appreciate input. Now resolved. Patient tolerating diet. Will follow symptomatically. (3) Influenza A: Onset Date: ~02/02/20 Code(s): J10.1 - Influenza due to other identified influenza virus with other respiratory manifestations Status: Acute Assessment and Plan: Positive for influenza A. Continue Tamiflu to complete a 5 day course. Continue isolation. No pneumonia on chest x-ray. Remains on room air. (4) Hypertension: Qualifiers: Hypertension type: essential hypertension Qualified Code(s): I10 - Essential (primary) hypertension Code(s): I10 - Essential (primary) hypertension Status: Chronic Assessment and Plan: Blood pressure reviewed on 02/05/2020 and remains stable. Will continue metoprolol tartrate. Continue to monitor. (5) Depression: Qualifiers: Depression Type: major depressive disorder Major depression recurrence: unspecified whether recurrent Active/Remission status: currently active Major depression episode severity: unspecified Qualified Code(s): F32.9 - Major depressive disorder, single episode, unspecified Code(s): F32.9 - Major depressive disorder, single episode, unspecified Status: Chronic Assessment and Plan: Patient not on medication but known to have flat affect. Will monitor. (6) Colon cancer metastasized to liver: Onset Date: Unknown Code(s): C18.9 - Malignant neoplasm of colon, unspecified; C78.7 - Secondary malignant neoplasm of liver and intrahepatic bile duct Status: Acute Assessment and Plan: Known disease with recent treatment for abscess of liver. Patient is currently on capecitabine and will continue. (7) Abscess of liver: Code(s): K75.0 - Abscess of liver Status: Acute Assessment and Plan: Recent hospitalization in December for liver abscesses. Unable to drain at that time but was seen by general surgery and Infectious Disease. Patient did complete a course of IV Zosyn as directed by Infectious Disease as noted above. Also with recent Clostridium perfringens infection. (8) DVT prophylaxis: Code(s): Z29.9 - Encounter for prophylactic measures, unspecified Status: Acute Assessment and Plan: Lovenox. Time Spent With Patient Time with patient: 15 - 25 minutes Subjective Date/time seen: 02/05/20 10:42 Interval history: Date of Service: 02/04/2020. Admitted with partial small bowel obstruction, influenza A. Patient with known metastatic colon cancer and recent treatment for liver abscesses. Sitting in chair finishing breakfast. States she does not know what is wrong with her. No abdominal pain. No nausea or vomiting. No chest pain. No shortness of breath. Review of Systems Cons
--- NOTE | 2020-02-05 14:13 | PCOTNOTE ---
Attempted to see patient three times this date. Patient sleeping in AM, declined in PM 2x. Patient not seen for OT this date.
--- NOTE | 2020-02-05 15:20 | PC.NURSE ---
Pt refused her lunch and accucheck at this time at 1130.
[2020-02-05] MEDS: ONDANSETRON INJ 4 MG/2 ML VIAL IV PUSH (15:56)
[2020-02-05 16:20] LABS: Glucose Point of Care 100 (65-105)
[2020-02-05] MEDS: ACETAMINOPHEN 325 MG TABLET 650 MG PO ×2 (16:58→21:47)
[2020-02-05 20:08] LABS: Glucose Point of Care 170 (65-105)
[2020-02-06] VITALS (18 sets, daily range): BP systolic 127–148; BP diastolic 58–75; PULSE 61–97; RESP 16–20; TEMP 35.9–36.9; O2SAT 91–98
[2020-02-06] MEDS: ALBUTEROL SULFATE NEB 2.5 MG/0.5 ML INH INHALATION ×4 (01:33→21:28)
[2020-02-06 05:15] LABS: Hematocrit 35.2 % (37.0-47.0); Hemoglobin 11.2 g/dL (12.0-15.0); Mean Corpuscular HGB Conc 31.8 g/dl (32-36); Mean Corpuscular Hemoglobin 32.1 pg (26-34); Mean Corpuscular Volume 100.9 fl (80-100); Mean Platelet Volume 11.1 fl (7.4-10.4); Platelet Count Result 154 k/mm3 (150-375); Red Blood Count 3.49 M/mm3 (4.2-5.4); Red Cell Distribution Width 15.7 % (11.5-14.5); White Blood Count 7.1 K/mm3 (4.5-10.0)
[2020-02-06 05:22] LABS: Blood Urea Nitrogen 9 mg/dL (7-17); Calcium 8.6 mg/dL (8.4-10.2); Carbon Dioxide 32 mmol/L (22-30); Chloride 101 mmol/L (98-107); Estimated CRCL calculation 72 ml/min; Estimated Glomerular Filt Rate > 60; Glucose 88 mg/dL (65-105); Potassium 3.3 mmol/L (3.4-5.0); Sodium 136 mmol/L (137-145)
[2020-02-06] MEDS: METOPROLOL TARTRATE 12.5 MG TABLET PO ×2 (08:14→21:18)
[2020-02-06] MEDS: ENOXAPARIN 40 MG/0.4 ML SYRINGE SUB-Q (08:14)
[2020-02-06] MEDS: OSELTAMIVIR PHOSPHATE 75 MG CAPSULE PO ×2 (08:14→21:18)
[2020-02-06] MEDS: PANTOPRAZOLE 40 MG TABLET PO (08:14)
--- NOTE | 2020-02-06 11:56 | PM.IMPN ---
Progress Note: A&P Assessment and Plan (1) Sepsis: Qualifiers: Sepsis acute organ dysfunction status: without acute organ dysfunction Sepsis type: sepsis due to unspecified organism Qualified Code(s): A41.9 - Sepsis, unspecified organism Code(s): A41.9 - Sepsis, unspecified organism Status: Acute Assessment and Plan: Patient did meet severe sepsis criteria on admission with tachycardia, tachypnea, elevated WBC and elevated lactic acid. Blood cultures now both positive for Klebsiella pneumoniae. Infectious disease consulted and appreciate input. Remains on IV Zosyn as sensitive and while awaiting further recommendations from Infectious Disease. WBC is normal. continue PT/OT. Plan to return to [facility] discharge. (2) Hypokalemia: Code(s): E87.6 - Hypokalemia Status: Acute Assessment and Plan: Potassium 3.3 today with oral replacement given. Will repeat in a.m.. Replace as needed. (3) Partial small bowel obstruction: Onset Date: 02/02/20 Code(s): K56.600 - Partial intestinal obstruction, unspecified as to cause Status: Resolved Assessment and Plan: CT abdomen/pelvis done in the emergency room with ventral abdominal wall hernias 1 of which contains small bowel segment with possible mild partial small bowel obstruction. General surgery consulted and appreciate input. Now resolved. Patient tolerating diet. Will continue to follow symptomatically. (4) Influenza A: Onset Date: ~02/02/20 Code(s): J10.1 - Influenza due to other identified influenza virus with other respiratory manifestations Status: Acute Assessment and Plan: Positive for influenza A. Continue Tamiflu to complete a 5 day course. Currently has completed 3 days of treatment. Continue isolation. No pneumonia on chest x-ray. Remains on room air. (5) Hypertension: Qualifiers: Hypertension type: essential hypertension Qualified Code(s): I10 - Essential (primary) hypertension Code(s): I10 - Essential (primary) hypertension Status: Chronic Assessment and Plan: Blood pressure reviewed on 02/06/2020. Some variability but stable. Will continue metoprolol tartrate. Continue to monitor. (6) Depression: Qualifiers: Active/Remission status: currently active Depression Type: major depressive disorder Major depression episode severity: unspecified Major depression recurrence: unspecified whether recurrent Qualified Code(s): F32.9 - Major depressive disorder, single episode, unspecified Code(s): F32.9 - Major depressive disorder, single episode, unspecified Status: Chronic Assessment and Plan: Patient not on medication but known to have flat affect. No new issues. Will monitor. (7) Colon cancer metastasized to liver: Onset Date: Unknown Code(s): C18.9 - Malignant neoplasm of colon, unspecified; C78.7 - Secondary malignant neoplasm of liver and intrahepatic bile duct Status: Acute Assessment and Plan: Known disease with recent treatment for abscess of liver. Patient is currently on capecitabine and will continue. (8) Abscess of liver: Code(s): K75.0 - Abscess of liver Status: Acute Assessment and Plan: Recent hospitalization in December for liver abscesses. Unable to drain at that time but was seen by general surgery and Infectious Disease. Patient did complete a course of IV Zosyn as directed by Infectious Disease as noted above. Also with recent Clostridium perfringens infection. (9) DVT prophylaxis: Code(s): Z29.9 - Encounter for prophylactic measures, unspecified Status: Acute Assessment and Plan: Lovenox. Time Spent With Patient Time with patient: 15 - 25 minutes Subjective Date/time seen: 02/06/20 11:56 Interval history: Date of Service: 02/06/2020. Admitted with partial small bowel obstruction, influenza A. Patient with
[2020-02-06] MEDS: POTASSIUM CHLORIDE 20 MEQ TABLET 40 MEQ PO (12:23)
[2020-02-07] VITALS (10 sets, daily range): BP systolic 124–154; BP diastolic 61–90; PULSE 84–101; RESP 16–18; TEMP 36.2–36.8; O2SAT 94–97
[2020-02-07] MEDS: ALBUTEROL SULFATE NEB 2.5 MG/0.5 ML INH INHALATION (01:53)
[2020-02-07 06:02] LABS: Blood Urea Nitrogen 10 mg/dL (7-17); Calcium 8.4 mg/dL (8.4-10.2); Carbon Dioxide 31 mmol/L (22-30); Chloride 101 mmol/L (98-107); Estimated CRCL calculation 71 ml/min; Estimated Glomerular Filt Rate > 60; Glucose 98 mg/dL (65-105); Magnesium 1.9 mg/dL (1.6-2.3); Potassium 3.6 mmol/L (3.4-5.0); Sodium 136 mmol/L (137-145)
[2020-02-07] MEDS: OSELTAMIVIR PHOSPHATE 75 MG CAPSULE PO (08:56)
[2020-02-07] MEDS: ENOXAPARIN 40 MG/0.4 ML SYRINGE SUB-Q (08:57)
[2020-02-07] MEDS: PANTOPRAZOLE 40 MG TABLET PO (08:57)
[2020-02-07] MEDS: METOPROLOL TARTRATE 12.5 MG TABLET PO ×2 (08:57→20:25)
--- NOTE | 2020-02-07 12:54 | WPDINFPN2 ---
Progress Note: A&P Assessment and Plan (1) Bacteremia: Code(s): R78.81 - Bacteremia Status: Acute Assessment and Plan: 1. Klebsiella bacteremia with infection, hepatic tumor source. 2. Flu A, treated 3. Metastatic colon cancer to liver REC naomi tazo #5, can stop and place on ciprofloxacin orally until AM 02/14. Ok discharge. I suggest elective consult with GI surgeon, to consider resection of liver tumor, in order to prevent future episodes of her present illness. I would not place on chronic oral suppression. Subjective Date/time seen: 02/07/20 12:54 Interval history: no nausea no abd pain, no chills sweats. Good po. No dyspnea Exam Narrative: Exam Narrative: afebrile Const: General: no acute distress Eyes: General: appearance normal, both eyes and all related structures Resp: Effort & Inspection: normal respiratory effort Auscultation: clear to auscultation bilaterally and rales Cardio: Rate: regular rate Rhythm: regular rhythm Heart sounds: no murmurs Other: dry rales left lung base, clear elswhere GI: Inspection: non-distended GI Palp: Yes Soft to palpation and No Tenderness to palpation present (GI) Percussion: Yes normal to percussion Objective Data Vital Signs Vital Signs: Vital Signs - 24 hr 02/06/20 14:00 02/06/20 15:40 02/06/20 15:51 Temperature 36.9 C Pulse Rate 87 63 61 Respiratory Rate 20 20 20 Blood Pressure 131/66 Pulse Oximetry 94 02/06/20 18:00 02/06/20 21:18 02/06/20 21:30 Temperature 36.9 C Pulse Rate 95 72 92 Respiratory Rate 18 16 Blood Pressure 148/75 H Pulse Oximetry 96 02/06/20 21:40 02/06/20 22:00 02/07/20 01:55 Temperature 36.1 C L Pulse Rate 95 97 93 Respiratory Rate 16 18 16 Blood Pressure 131/58 L Pulse Oximetry 96 02/07/20 02:00 02/07/20 02:55 02/07/20 06:00 Temperature 36.5 C 36.4 C L Pulse Rate 100 96 90 Respiratory Rate 16 16 16 Blood Pressure 124/61 138/90 Pulse Oximetry 94 94 02/07/20 08:57 02/07/20 10:00 Temperature 36.6 C Pulse Rate 90 89 Respiratory Rate 18 Blood Pressure 129/78 Pulse Oximetry 94 Intake/Output Intake/Output: Intake & Output 02/04/20 02/05/20 02/06/20 02/07/20 23:59 23:59 23:59 23:59 Intake Total 1610 1250 2930 1160 Output Total 193 630 3095 900 Balance 054 972 5729 260 Meds/Results Medications: Active Medications Generic Name Dose Route Start Last Admin Trade Name Freq PRN Reason Stop Dose Admin Acetaminophen 650 mg 02/05/20 16:08 02/05/20 21:47 Tylenol Tablet PO 650 mg Q4H PRN Administration Mild Pain (1-3) or Fever Albuterol 2.5 mg 02/07/20 09:47 Albuterol Sulf Neb 2.5mg/0.5ml INHALATION Q6HRT PRN Shortness Of Breath Or Wheezing Ciprofloxacin 500 mg 02/07/20 21:00 Cipro Po PO 02/15/20 09:01 Q12HR NI Enoxaparin Sodium 40 mg 02/03/20 09:00 02/07/20 08:57 Lovenox SUB-Q 40 mg DAILY NI Administration Metoprolol Tartrate 12.5 mg 02/02/20 23:05 02/07/20 08:57 Lopressor PO 12.5 mg Q12HR NI Administration Non-Formulary Medication 1,000 mg 02/03/20 09:00 Capecitabine PO 03/04/20 09:01 BID NI Ondansetron HCl 4 mg 02/02/20 18:47 02/05/20 15:56 Zofran Inj IV PUSH 4 mg Q4H PRN Administration Nausea Pantoprazole Sodium 40 mg 02/03/20 09:00 02/07/20 08:57 Protonix PO 40 mg QAM NI Administration Radiology Results: ITS Impressions Chest X-Ray 02/02/20 16:54 IMPRESSION: Cardiomegaly, mild congestive heart failure Mild infiltrate or atelectasis at the lung bases. Abdomen/Pelvis CT 02/02/20 17:23 IMPRESSION: Left medial and lateral segment hepatic masses, largely stable since 12/28/2019 Status post cholecystectomy Small sliding hiatal hernia. Right hepatic and multiple bilateral renal cysts Status post hysterectomy Diverticulosis of the left colon Status post right colectomy Ventral abdominal wall hernias, one of ic
--- NOTE | 2020-02-07 13:30 | PCOTNOTE ---
Attempted to see patient twice this date, however first attempt, patient just received lunch tray. Second attempt this pm, patient was with physical therapy.
[2020-02-07] MEDS: CIPROFLOXACIN 500 MG TAB PO (20:25)
[2020-02-07] MEDS: ACETAMINOPHEN 325 MG TABLET 650 MG PO (20:28)
[2020-02-08 06:00] VITALS: BP 135/72; PULSE 100; RESP 18; TEMP 36.2; O2SAT 93
[2020-02-08 08:49] VITALS: PULSE 100
[2020-02-08] MEDS: METOPROLOL TARTRATE 12.5 MG TABLET PO (08:49)
[2020-02-08] MEDS: ENOXAPARIN 40 MG/0.4 ML SYRINGE SUB-Q (08:49)
[2020-02-08] MEDS: CIPROFLOXACIN 500 MG TAB PO (08:49)
[2020-02-08] MEDS: PANTOPRAZOLE 40 MG TABLET PO (08:49)
[2020-02-08 09:52] VITALS: BP 123/72; PULSE 83; RESP 18; TEMP 36.7; O2SAT 94
--- NOTE | 2020-02-08 10:10 | PCOTNOTE ---
Attempted to see patient this am, however patient refused. Pt stated, I don't feel like it. I'm tired, and my head feels like 1,000 lbs. I just need to go to sleep and never wake up. Encouraged patient to participate in ADLs including shower to help patient feel better, however patient continued to refuse at this time. I don't want to.
--- NOTE | 2020-02-08 11:31 | PM.IMPN ---
Progress Note: A&P Assessment and Plan (1) Sepsis: Qualifiers: Sepsis acute organ dysfunction status: without acute organ dysfunction Sepsis type: sepsis due to unspecified organism Qualified Code(s): A41.9 - Sepsis, unspecified organism Code(s): A41.9 - Sepsis, unspecified organism Status: Acute Assessment and Plan: Patient did meet severe sepsis criteria on admission with tachycardia, tachypnea, elevated WBC and elevated lactic acid. Blood cultures now both positive for Klebsiella pneumoniae. Infectious disease consulted and appreciate input. Transitioned from IV Zosyn to oral ciprofloxacin. Continue PT/OT. Await authorization for return to [facility]. (2) Hypokalemia: Code(s): E87.6 - Hypokalemia Status: Acute Assessment and Plan: Potassium 3.6 on 02/07/2020. Will monitor and replace as needed. (3) Partial small bowel obstruction: Onset Date: 02/02/20 Code(s): K56.600 - Partial intestinal obstruction, unspecified as to cause Status: Resolved Assessment and Plan: CT abdomen/pelvis done in the emergency room with ventral abdominal wall hernias 1 of which contains small bowel segment with possible mild partial small bowel obstruction. General surgery consulted and appreciate input. Now resolved. Patient tolerating diet. Will continue to follow symptomatically. (4) Influenza A: Onset Date: ~02/02/20 Code(s): J10.1 - Influenza due to other identified influenza virus with other respiratory manifestations Status: Acute Assessment and Plan: Positive for influenza A. Has completed 5 day course of Tamiflu. Seventh day from onset of symptoms is 02/08/2020. No pneumonia on x-ray. Remains on room air. (5) Hypertension: Qualifiers: Hypertension type: essential hypertension Qualified Code(s): I10 - Essential (primary) hypertension Code(s): I10 - Essential (primary) hypertension Status: Chronic Assessment and Plan: Blood pressure reviewed on 02/07/2020 with occasional elevated readings but acceptable. Continue metoprolol tartrate. Will monitor. (6) Depression: Qualifiers: Depression Type: major depressive disorder Major depression recurrence: unspecified whether recurrent Active/Remission status: currently active Major depression episode severity: unspecified Qualified Code(s): F32.9 - Major depressive disorder, single episode, unspecified Code(s): F32.9 - Major depressive disorder, single episode, unspecified Status: Chronic Assessment and Plan: Patient not on medication but known to have flat affect. No new issues. Will monitor. (7) Colon cancer metastasized to liver: Onset Date: Unknown Code(s): C18.9 - Malignant neoplasm of colon, unspecified; C78.7 - Secondary malignant neoplasm of liver and intrahepatic bile duct Status: Acute Assessment and Plan: Known disease with recent treatment for abscess of liver. Patient is currently on capecitabine and will continue. (8) Abscess of liver: Code(s): K75.0 - Abscess of liver Status: Acute Assessment and Plan: Recent hospitalization in December for liver abscesses. Unable to drain at that time but was seen by general surgery and Infectious Disease. Patient did complete a course of IV Zosyn as directed by Infectious Disease as noted above. Also with recent Clostridium perfringens infection. (9) DVT prophylaxis: Code(s): Z29.9 - Encounter for prophylactic measures, unspecified Status: Acute Assessment and Plan: Lovenox. Time Spent With Patient Time with patient: 15 - 25 minutes Subjective Date/time seen: 02/08/20 11:31 Interval history: LATE ENTRY: Date of Service: 02/07/2020. Admitted with partial small bowel obstruction, influenza A. Patient with known metastatic colon cancer and recent treatment for liver abscesses. Sitting in chair.
--- NOTE | 2020-02-08 11:35 | PM.IMPN ---
Progress Note: A&P Assessment and Plan (1) Sepsis: Qualifiers: Sepsis acute organ dysfunction status: without acute organ dysfunction Sepsis type: sepsis due to unspecified organism Qualified Code(s): A41.9 - Sepsis, unspecified organism Code(s): A41.9 - Sepsis, unspecified organism Status: Acute Assessment and Plan: Patient did meet severe sepsis criteria on admission with tachycardia, tachypnea, elevated WBC and elevated lactic acid. Blood cultures now both positive for Klebsiella pneumoniae. Infectious disease consulted and appreciate input. Now on oral ciprofloxacin as of 02/07/2020. Will need to continue oral ciprofloxacin through 02/15/2020. Has been receiving PT/OT here. Insurance no longer approving SNF. Will still discharge back to [facility] today but skilled nursing at this time. (2) Hypokalemia: Code(s): E87.6 - Hypokalemia Status: Acute Assessment and Plan: Potassium 3.6 on 02/07/2020. Can monitor at nursing facility. (3) Partial small bowel obstruction: Onset Date: 02/02/20 Code(s): K56.600 - Partial intestinal obstruction, unspecified as to cause Status: Resolved Assessment and Plan: CT abdomen/pelvis done in the emergency room with ventral abdominal wall hernias 1 of which contains small bowel segment with possible mild partial small bowel obstruction. General surgery consulted and appreciate input. Resolved. Tolerating diet. (4) Influenza A: Onset Date: ~02/02/20 Code(s): J10.1 - Influenza due to other identified influenza virus with other respiratory manifestations Status: Acute Assessment and Plan: Positive for influenza A. Has completed 5 day course of Tamiflu. Today is 7th day from onset of symptoms and will no longer need to continue isolation. On room air. No pneumonia. (5) Hypertension: Qualifiers: Hypertension type: essential hypertension Qualified Code(s): I10 - Essential (primary) hypertension Code(s): I10 - Essential (primary) hypertension Status: Chronic Assessment and Plan: Blood pressure reviewed on 02/08/2020 with blood pressure readings better today. Continue metoprolol tartrate. (6) Depression: Qualifiers: Depression Type: major depressive disorder Major depression recurrence: unspecified whether recurrent Active/Remission status: currently active Major depression episode severity: unspecified Qualified Code(s): F32.9 - Major depressive disorder, single episode, unspecified Code(s): F32.9 - Major depressive disorder, single episode, unspecified Status: Chronic Assessment and Plan: Patient not on medication but known to have flat affect. Will need to monitor at nursing facility. (7) Colon cancer metastasized to liver: Onset Date: Unknown Code(s): C18.9 - Malignant neoplasm of colon, unspecified; C78.7 - Secondary malignant neoplasm of liver and intrahepatic bile duct Status: Acute Assessment and Plan: Known disease with recent treatment for abscess of liver. Patient is currently on capecitabine and will continue. (8) Abscess of liver: Code(s): K75.0 - Abscess of liver Status: Acute Assessment and Plan: Recent hospitalization in December for liver abscesses. Unable to drain at that time but was seen by general surgery and Infectious Disease. Patient did complete a course of IV Zosyn as directed by Infectious Disease as noted above. Also with recent Clostridium perfringens infection. (9) DVT prophylaxis: Code(s): Z29.9 - Encounter for prophylactic measures, unspecified Status: Acute Assessment and Plan: Lovenox. Time Spent With Patient Time with patient: 15 - 25 minutes Subjective Date/time seen: 02/08/20 11:35 Interval history: Date of Service: 02/08/2020. Admitted with partial small bowel obstruction, influenza A. Patient with known metastatic colo
--- NOTE | 2020-02-08 17:40 | PM.DS ---
DS: Diagnosis Admitting Diagnosis Admitting Diagnosis: Partial intestinal obstruction, unspecified as to cause Discharge Diagnosis (1) Sepsis: Qualifiers: Sepsis acute organ dysfunction status: without acute organ dysfunction Sepsis type: sepsis due to unspecified organism Qualified Code(s): A41.9 - Sepsis, unspecified organism Code(s): A41.9 - Sepsis, unspecified organism Status: Acute (2) Hypokalemia: Code(s): E87.6 - Hypokalemia Status: Acute (3) Partial small bowel obstruction: Onset Date: 02/02/20 Code(s): K56.600 - Partial intestinal obstruction, unspecified as to cause Status: Resolved (4) Influenza A: Onset Date: ~02/02/20 Code(s): J10.1 - Influenza due to other identified influenza virus with other respiratory manifestations Status: Acute (5) Hypertension: Qualifiers: Hypertension type: essential hypertension Qualified Code(s): I10 - Essential (primary) hypertension Code(s): I10 - Essential (primary) hypertension Status: Chronic (6) Depression: Qualifiers: Active/Remission status: currently active Depression Type: major depressive disorder Major depression episode severity: unspecified Major depression recurrence: unspecified whether recurrent Qualified Code(s): F32.9 - Major depressive disorder, single episode, unspecified Code(s): F32.9 - Major depressive disorder, single episode, unspecified Status: Chronic (7) Colon cancer metastasized to liver: Onset Date: Unknown Code(s): C18.9 - Malignant neoplasm of colon, unspecified; C78.7 - Secondary malignant neoplasm of liver and intrahepatic bile duct Status: Acute (8) Abscess of liver: Code(s): K75.0 - Abscess of liver Status: Acute DS: Summary Hospital Course Reason for hospitalization: Abdominal pain after lunch. Hospital Course: Date of Service of Discharge: February 08, 2020. History of Present Illness: Patient is an 79-year-old woman with known metastatic colon cancer with recent hospitalization for liver abscesses for which she was admitted at [facility] from 12/29/2019 through 01/03/2020 currently in rehab at [facility] who was sent to the emergency room after becoming ill after lunch. Patient reports having some abdominal pain. She was given Zofran at the group home. No recorded fever. No known cough or shortness of breath. No nausea or vomiting. Patient did recently complete a course of IV Zosyn at the nursing facility for her liver abscesses. In the emergency room, findings were consistent with sepsis. She was also positive for influenza A with partial small-bowel obstruction seen on imaging. Surgery was consulted from the emergency room. Patient was admitted for further evaluation and treatment. Course in Hospital: Patient was admitted to the medical floor where she remained for the duration of her stay. She was placed on isolation for influenza A and started on Tamiflu. She did complete a 5 day course of treatment. She remained on room air throughout her stay. She had no actual respiratory complaints related to the influenza infection. She was seen in consultation by General surgery due to CT scan of abdomen showing ventral abdominal wall hernias containing small bowel segment with possible mild partial small-bowel obstruction. This was managed conservatively. Patient was initially NPO with IV fluids. She very rapidly had resolution bowel sounds and bowel movements. She was able to advanced to a regular diet within the 1st few days of admission and had no further difficulty. No surgical intervention was required. Blood cultures were drawn from the emergency room. She did begin growing gram-negative bacilli by 02/03/2020 at which time she was started on IV Zosyn given her recent history of liver abscesses and previous Clostridium perfringens infection. Infectious Disease w
== END 2020-02-08 13:20 | DRG 871 ==
LOC: ANHED 18:50 → ANHIMU 19:17 → ANH2MED 02-03 12:24
PROVIDERS: Emergency Medicine; Family Medicine; Admitting Provider Hospitalist; Emergency Provider General Practice; Visit Provider Hospitalist
DX: A41.59 Other Gram-negative sepsis (principal); K75.0 Abscess of liver; C18.9 Malignant neoplasm of colon, unspecified; C78.7 Secondary malignant neoplasm of liver and intrahepatic bile duct; K43.6 Other and unspecified ventral hernia with obstruction, without gangrene; R65.20 Severe sepsis without septic shock; Z66 Do not resuscitate; Z87.891 Personal history of nicotine dependence; J10.1 Influenza due to other identified influenza virus with other respiratory manifestations; E86.0 Dehydration; F32.9 Major depressive disorder, single episode, unspecified; I10 Essential (primary) hypertension; Z79.899 Other long term (current) drug therapy; J44.9 Chronic obstructive pulmonary disease, unspecified; K21.9 Gastro-esophageal reflux disease without esophagitis; Z87.442 Personal history of urinary calculi; Z90.49 Acquired absence of other specified parts of digestive tract; K42.9 Umbilical hernia without obstruction or gangrene; E87.6 Hypokalemia
CPT/HCPCS: 36415; 36600; 51701; 71045; 74019; 74177; 80048; 80053; 81001; 82140; 82375; 82805; 82948; 83050; 83605; 83690; 83735; 84484; 85025; 85027; 85610; 85730; 86140; 87040; 87077; 87081; 87186; 87804; 93005; 94640; 96361; 96365; 96375; 97110; 97116; 97161; 97165; 97530; 97535; 99285; A9270; C9113; J0131; J1650; J2405; J2543; J7030; J7120; Q9967

== ENCOUNTER 2020-05-28 16:52 | Emergency (ER) | payer MEDICARE, SELFPAY ==
[2020-05-28 16:47] VITALS: BP 148/84; PULSE 77; RESP 16; TEMP 36.9; O2SAT 98
--- NOTE | 2020-05-28 17:24 | ECG_ITS ---
Measurements Intervals [place] Rate: 73 P: 75 FL: 136 QRS: -7 QRSD: 98 T: -4 QT: 423 QTc: 467 Interpretive Statements SINUS RHYTHM ATRIAL COUPLET AND ATRIAL PREMATURE COMPLEXES VOLTAGE CRITERIA FOR LVH BORDERLINE T WAVE ABNORMALITY- INFERIOR LEADS BASELINE WANDER- V4 BORDERLINE ECG Electronically Signed On 05-29-2020 7:19:21 CDT by August De Jesus D.O.
[2020-05-28 17:41] LABS: Basophils Absolute Auto 0.1 K/mm3 (0.0-0.1); Basophils Percent Auto 0.5 % (0.2-1.2); Eosinophils Absolute Auto 0.3 K/mm3 (0-0.3); Eosinophils Percent Auto 2.7 % (0-4.4); Hematocrit 40.3 % (37.0-47.0); Immature Granulocyte Absolute 0.04 K/mm3 (0.00-0.031); Immature Granulocyte Percent A 0.4 % (0-0.5); Lymphocytes Absolute Auto 1.73 K/mm3 (0.9-3.2); Lymphocytes Percent Auto 16.9 % (18.3-44.2); Mean Corpuscular HGB Conc 32.3 g/dl (32-36); Mean Corpuscular Hemoglobin 32.3 pg (26-34); Mean Corpuscular Volume 100.2 fl (80-100); Monocytes Percent Auto 9.4 % (2.6-8.5); Neutrophils Absolute Auto 7.2 K/mm3 (1.3-6.7); Neutrophils Percent Auto 70.1 % (45.5-73.1); Platelet Count Result 267 k/mm3 (150-375); Red Blood Count 4.02 M/mm3 (4.2-5.4); Red Cell Distribution Width 14.8 % (11.5-14.5); White Blood Count 10.3 K/mm3 (4.5-10.0)
[2020-05-28 17:52] LABS: Alanine Aminotransferase 17 U/L (4-35); Albumin Level 4.2 g/dL (3.5-5.1); Alkaline Phosphatase 264 U/L (38-126); Aspartate Amino Transferase 22 U/L (14-36); Bilirubin,Total 0.2 mg/dL (0.2-1.3); Blood Urea Nitrogen 14 mg/dL (7-17); Calcium 9.2 mg/dL (8.4-10.2); Carbon Dioxide 29 mmol/L (22-30); Chloride 97 mmol/L (98-107); Estimated CRCL calculation 55 ml/min; Estimated Glomerular Filt Rate > 60; Glucose 91 mg/dL (65-105); Potassium 3.7 mmol/L (3.4-5.0); Sodium 133 mmol/L (137-145)
[2020-05-28 18:00] VITALS: BP 137/64; PULSE 71; RESP 16; O2SAT 96
[2020-05-28 18:24] LABS: Add Urine Microscopic? YES; Amorphous Sediment Urine Few; Appearance Urine Clear (Clear); Bacteria Urine Trace /hpf; Bilirubin Urine Negative (Negative); Blood Urine Negative (Negative); Color Urine Straw (Yellow); Glucose Urine UA Negative (Negative); Ketones Urine Negative (Negative); Leukocyte Esterase Ur Trace LEU/UL (Negative); Mucus Urine Rare /lpf; Nitrate Urine Negative (Negative); Protein Urine Negative (Negative); RBC Urine 0-2 /hpf (0-2); Specific Grav Ur 1.011 (1.001-1.035); Squamous Epithelial Cell Urine Occasional /hpf (Few); Urobilinogen Urine Negative mg/dL (<2.0)
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
[2020-05-28 19:00] VITALS: BP 141/76; PULSE 79; RESP 16; O2SAT 95
--- NOTE | 2020-05-28 19:38 | PC.NURSE ---
assumed care of pt from CARLENE Evans.
--- NOTE | 2020-05-28 20:09 | PC.NURSE ---
Patient found sitting on end of stretcher wanting to get up and go home. Encouraged to move back-patient c/o itchy butt - diaper soiled with urine-pericare given -morteza area red and tender. new diaper applied with patient assist and repositioned for comfort. Primary RN made aware
--- NOTE | 2020-05-28 21:10 | PC.NURSE ---
Crisis at bedside for eval.
[2020-05-28 21:35] VITALS: BP 132/88; PULSE 90; RESP 20; O2SAT 99
[2020-05-28 22:44] VITALS: BP 128/80; PULSE 80; RESP 20; O2SAT 99
== END 2020-05-28 23:50 ==
PROVIDERS: Family Medicine; Emergency Provider General Practice
DX: R46.89 Other symptoms and signs involving appearance and behavior (principal); J44.9 Chronic obstructive pulmonary disease, unspecified; K21.9 Gastro-esophageal reflux disease without esophagitis; I10 Essential (primary) hypertension; Z87.442 Personal history of urinary calculi; I25.2 Old myocardial infarction; G25.81 Restless legs syndrome; Z98.42 Cataract extraction status, left eye; Z98.41 Cataract extraction status, right eye; Z90.49 Acquired absence of other specified parts of digestive tract; Z85.038 Personal history of other malignant neoplasm of large intestine; C78.7 Secondary malignant neoplasm of liver and intrahepatic bile duct; Z66 Do not resuscitate; Z87.891 Personal history of nicotine dependence; R00.8 Other abnormalities of heart beat; I49.1 Atrial premature depolarization; R94.31 Abnormal electrocardiogram [ECG] [EKG]
CPT/HCPCS: 36415; 51701; 80053; 81001; 85025; 93005; 99284